=== PATIENT | female | born 1945 | race Caucasian/White ===

== ENCOUNTER 2022-06-04 11:48 | Emergency (ER) | payer MEDICARE, SELFPAY ==
--- NOTE | ~2022-06-04 | XR_ITS ---
EXAMINATION: XR ELBOW-RIGHT XR FOREARM-RIGHT XR HAND-RIGHT CLINICAL INFORMATION: Pain. COMPARISON: None TECHNIQUE: 3 views of the right elbow, 2 views of the right forearm and 3 views of the right wrist including the right hand were obtained. FINDINGS: Right elbow: The bony alignments are intact. Moderate diffuse osteopenia. Osteoarthrosis related changes are noted at the humeroulnar joint. The lateral radiograph is technically suboptimal due to suboptimal positioning, grossly no evidence of any effusion. Right forearm: Moderate diffuse osteopenia. Significant osteoarthrosis of the distal radioulnar joint with a new bone formation and sclerosis. Negative ulnar minus variant. Right wrist and right hand: Extensive TFCC calcification. Abnormal widening of the scapholunate joint space. Moderate diffuse osteopenia. Moderate osteoarthrosis of the first carpometacarpal joint. XR/XR forearm RT 2V IMPRESSION: 1. 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 2. 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 3. Abnormal widening of the scapholunate joint space consistent with scapholunate ligamentous tear, associated with extensive TFCC calcification and moderate osteoarthrosis of the first carpometacarpal joint and moderate diffuse osteopenia.
--- NOTE | ~2022-06-04 | XR_ITS ---
EXAMINATION: XR ELBOW-RIGHT XR FOREARM-RIGHT XR HAND-RIGHT CLINICAL INFORMATION: Pain. COMPARISON: None TECHNIQUE: 3 views of the right elbow, 2 views of the right forearm and 3 views of the right wrist including the right hand were obtained. FINDINGS: Right elbow: The bony alignments are intact. Moderate diffuse osteopenia. Osteoarthrosis related changes are noted at the humeroulnar joint. The lateral radiograph is technically suboptimal due to suboptimal positioning, grossly no evidence of any effusion. Right forearm: Moderate diffuse osteopenia. Significant osteoarthrosis of the distal radioulnar joint with a new bone formation and sclerosis. Negative ulnar minus variant. Right wrist and right hand: Extensive TFCC calcification. Abnormal widening of the scapholunate joint space. Moderate diffuse osteopenia. Moderate osteoarthrosis of the first carpometacarpal joint. XR/XR elbow RT 2V IMPRESSION: 1. 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 2. 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 3. Abnormal widening of the scapholunate joint space consistent with scapholunate ligamentous tear, associated with extensive TFCC calcification and moderate osteoarthrosis of the first carpometacarpal joint and moderate diffuse osteopenia.
--- NOTE | ~2022-06-04 | XR_ITS ---
EXAMINATION: XR ELBOW-RIGHT XR FOREARM-RIGHT XR HAND-RIGHT CLINICAL INFORMATION: Pain. COMPARISON: None TECHNIQUE: 3 views of the right elbow, 2 views of the right forearm and 3 views of the right wrist including the right hand were obtained. FINDINGS: Right elbow: The bony alignments are intact. Moderate diffuse osteopenia. Osteoarthrosis related changes are noted at the humeroulnar joint. The lateral radiograph is technically suboptimal due to suboptimal positioning, grossly no evidence of any effusion. Right forearm: Moderate diffuse osteopenia. Significant osteoarthrosis of the distal radioulnar joint with a new bone formation and sclerosis. Negative ulnar minus variant. Right wrist and right hand: Extensive TFCC calcification. Abnormal widening of the scapholunate joint space. Moderate diffuse osteopenia. Moderate osteoarthrosis of the first carpometacarpal joint. XR/XR hand wrist RT IMPRESSION: 1. 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 2. 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 3. Abnormal widening of the scapholunate joint space consistent with scapholunate ligamentous tear, associated with extensive TFCC calcification and moderate osteoarthrosis of the first carpometacarpal joint and moderate diffuse osteopenia.
[2022-06-04 12:01] VITALS: BP 100/49; PULSE 86; RESP 18; TEMP 36.9; O2SAT 96; BMI 54.0
--- NOTE | 2022-06-04 15:06 | ED_ITS ---
HPI - Extremity Problem General Chief complaint: Extremity Injury, Upper Stated complaint: pain in R hand Time Seen by Provider: 06/04/22 14:26 Source: patient Mode of arrival: wheelchair Limitations: no limitations History of Present Illness HPI Narrative: 76-year-old female has a history of high cholesterol, hypothyroidism, former blood clots on Coumadin, GERD, diabetes, brain tumor status post resection in [place] who presents with right hand/wrist pain. Patient is left-hand dominant. Patient denies any injury or trauma to the hand or wrist. She woke up with pain which is worsened with movement of the wrist. No associated weakness, numbness or tingling of the extremity. Related Data Previous Rx's Medication Instructions Recorded oxycodone 5 mg tablet 5 mg PO Q6H PRN pain #8 tabs 06/04/22 Allergies Allergy/AdvReac Type Severity Reaction Status Date / Time Iodinated Contrast Media Allergy Unknown VOMITING Unverified 06/11/20 14:34 [IV DYE, IODINE CONTAINING CONTRAST ] IVP dye Allergy Unknown vomiting Uncoded 10/30/18 00:00 Review of Systems Review of Systems: Yes all other systems are reviewed and are negative Constitutional: Constitutional: Reports no additional constitutional complaints, Denies body ache(s), Denies chills, Denies fever(s), Denies headache(s) and Denies weakness Eyes: Eyes: Reports no additional eye complaints and Denies change in vision ENT: Reports system reviewed and no additional complaints, except as documented, Denies dizziness, Denies headache(s), Denies nasal congestion, Denies nasal discharge and Denies neck pain Cardiovascular: Cardiovascular: Reports no additional cardiovascular complaints, Denies chest pain, Denies leg edema and Denies dyspnea Respiratory: Respiratory: Reports no additional respiratory complaints, Denies cough and Denies dyspnea Gastrointestinal: Gastrointestinal: Reports no additional gastrointestinal complaints, Denies abdominal pain, Denies diarrhea, Denies nausea and Denies vomiting Genitourinary: Genitourinary: Reports no additional female genitourinary complaints and Denies urinary incontinence Musculoskeletal: Musculoskeletal: Reports no additional musculoskeletal complaints, Denies back pain, Reports arthralgias, Reports joint swelling, Reports limited range of motion, Denies neck pain, Denies numbness and Denies tingling Integumentary/Breasts: Skin/Breast: Reports system reviewed and no additional complaints, except as docu and Denies rash Neurologic: Reports system reviewed and no additional complaints, except as documented, Denies Abnormal speech present, Denies dizziness, Denies headache(s), Denies numbness, Denies tingling and Denies weakness PMFSH Past Medical History Attestation statement: The following information was validated with the patient. Source: old records reviewed and nursing notes reviewed Social History Social History Advance Directives: No Advance Directives Information Provided: No Physical Exam Vital Signs: Vital Signs: Last Vital Signs Temp 98.4 F 06/04/22 12:01 Pulse 86 06/04/22 12:01 Resp 18 06/04/22 12:01 BP 100/49 L 06/04/22 12:01 Pulse Ox 96 06/04/22 12:01 O2 Del Method 06/04/22 12:01 BMI result Body Mass Index 54.0 Const: General: cooperative, healthy appearing, comfortable and no acute distress Orientation/consciousness: patient oriented x3 Limitations: no limitations HEENT: Head: Yes normal to inspection Ears: hearing grossly normal bilaterally General nose exam: Normal external nose present Face and sinus: Yes normal facial exam Mouth: Normal oral and palatal mucosa present Throat: Yes posterior oropharynx normal Eyes: General: appearance normal, both eyes and all related structures Pupils: Equal, round and reactive pupils present Neck: Neck: Yes normal visual inspection Chest: Chest palpation & inspection: normal inspection of the chest Resp: Effort & Inspection: normal respiratory effort Auscultation: clear to auscultation bilaterally Cardio: Rate: regular rate Rhythm: regular rhythm Peripheral pulses: Peripheral pulses 2+ throughout GI: Inspection: Yes normal to inspection Palpation (GI): Soft to palpation and nontender Auscultation: normal bowel sounds Back/Spine/Pelvis: Thoracic/Lumbar Spine: thoracic and lumbar spine normal to inspection Skin: General skin exam: no rashes or lesions noted Neuro: General: patient oriented x3, no focal motor deficits and normal sensation to monofilament Cranial nerves: Yes Equal, round and reactive pupils present Cognition (Neuro): normal cognition Speech: No Abnormal speech present Gait exam (Neuro): Normal gait present Motor exam (neuro): 5/5 motor strength present throughout Extrem: Other: There is tenderness to the distal radial wrist with some slight swelling. There is limited range of motion of the wrist due to pain. No warmth or redness. Palpable radial and ulnar pulses. Neurovascular intact distally. General: Yes normal to inspection Course Course Course Narrative: X-rays IMPRESSION: ? 1. 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 2. 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 3. Abnormal widening of the scapholunate joint space consistent with scapholunate ligamentous tear, associated with extensive TFCC calcification and moderate osteoarthrosis of the first carpometacarpal joint and moderate diffuse osteopenia. -patient denies any injury or trauma. There is tenderness over the distal radial wrist. Will place patient and wrist splint. Recommend APAP and low-dose oxycodone for home. Patient moved here recently from [place] and does not have a primary care doctor. She is trying to get [employer]. She is working on establishing a primary care doctor. I explained the patient when she has insurance or primary care she can follow-up with orthopedics. Reviewed worrisome signs and symptoms of when to return to the emergency room. Comfortable discharge home. MDM - Extremity (Nontraumatic) MDM Narrative Medical decision making narrative: 76-year-old female who is left-hand dominant here with atraumatic right wrist pain with waking. Will obtain x-rays. Medical Records Attestation: I reviewed the patient's medical records. Lab Data Attestation: I reviewed the patient's lab results. Imaging Data Hand/wrist xray, FA, elbow: Attestation: I personally reviewed and interpreted this imaging study as follows: Radiologist's impression: IMPRESSION: ? 1. 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 2. 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 3. Abnormal widening of the scapholunate joint space consistent with scapholunate ligamentous tear, associated with extensive TFCC calcification and moderate osteoarthrosis of the first carpometacarpal joint and moderate diffuse osteopenia. Procedures Procedure Narrative Procedure Narrative: Wrist splint Discharge Plan Discharge Clinical Impression: Right scapholunate ligament tear, Osteoarthritis of right wrist Patient Disposition: Home, Self-Care Instructions: Osteoarthritis (ED), Wrist Sprain (ED) Additional Instructions: Your x-ray of the wrist shows arthritis in the hand and wrist which is quite significant. There is also a tear of the ligament in the wrist. We are placing you in a splint for comfort. You may remove this as tolerated Apply ice to the area, limit use of the wrist for the next few days Continue with Tylenol. Take the pain medicine as tolerated You need to establish a primary care as you will likely need referral to see a hand specialist. I have attached the name and number for our hand specialist but again you will likely need a referral Prescriptions: New oxycodone 5 mg tablet 5 mg PO Q6H PRN (Reason: pain) Qty: 8 0RF Rx Instructions: Partial Fill upon patient request. Referrals: Stephanie Powers MD [Physician] - 2 weeks Interventions: ED Discharge Assessment Last Done: 06/04/22 15:47 Discharge Date/Time: 06/04/22 15:49
[2022-06-04] MEDS: oxyCODONE HCl Immed Release 5 MG TABLET PO (15:30)
== END 2022-06-04 15:49 | disposition home or self-care (01) ==
PROVIDERS: Emergency Provider Emergency Medicine
DX: S63.8X1A Sprain of other part of right wrist and hand, initial encounter (principal); X58.XXXA Exposure to other specified factors, initial encounter; M19.031 Primary osteoarthritis, right wrist; M79.641 Pain in right hand; Y93.9 Activity, unspecified; Y92.9 Unspecified place or not applicable; Y99.9 Unspecified external cause status
CPT/HCPCS: 73070; 73090; 73110; 73130; 99283; 99284

== ENCOUNTER 2022-06-08 16:02 | Inpatient (IN) | payer MEDICARE, SELFPAY ==
--- NOTE | ~2022-06-08 | CT_ITS ---
EXAMINATION: CT HEAD WITHOUT CONTRAST CLINICAL INFORMATION: Altered mental status COMPARISON: 04/20/2018 TECHNIQUE: Contiguous axial imaging was performed from the skull base to vertex without intravenous administration of contrast. This CT examination was performed using dose optimization techniques as appropriate, variously including the following: *Automated exposure control *Adjustment of mA and/or kV according to patient size (this includes techniques or standardized protocols for targeted exams where dose is matched to indication/reason for exam; i.e. extremities or head) *Use of iterative reconstruction technique DLP: 848 mGy-cm FINDINGS: There is no midline shift. There is no mass effect. There is no hemorrhage. The basilar cisterns appear patent. The posterior fossa is grossly within normal limits. There is no extra-axial collection. There has been a craniotomy on the left There is encephalopathy adjacent to the craniotomy of the left. There is also some decreased attenuation in the white matter adjacent to the encephalopathic brain. This is not causing any midline shift or definitive mass effect. There is a possible new area of decreased attenuation adjacent to the anterior body of the right lateral ventricle. Image 36 which could represent an area of white matter ischemic change. A small underlying lesion cannot be excluded here. There is no acute fracture on the bone windows. CT/CT head/brain wo IV con IMPRESSION: There is no acute finding here. There has been a left posterior craniotomy from previous exam there is encephalomalacia which is now present and there is some as described decreased attenuation in the adjacent white matter in the region. Although this could represent the patient's postoperative appearance tumor cannot be excluded. As described there is also felt to be new area of decreased attenuation which is just superior to the caudate and adjacent to the caudate on the right adjacent also at the level the anterior aspect of the body of the right lateral ventricle. This could represent white matter ischemic change however underlying lesion again cannot be excluded. Given these findings Recommendation is pre and postcontrast MRI for further evaluation.
--- NOTE | ~2022-06-08 | XR_ITS ---
EXAMINATION: XR CHEST CLINICAL INFORMATION: Altered mental status. COMPARISON: 09/24/2017 chest radiograph. TECHNIQUE: Frontal view of the chest was obtained. FINDINGS: No significant abnormality is noted involving the heart, lungs, mediastinum, bony thorax or soft tissues. XR/XR chest 1V IMPRESSION: No acute cardiopulmonary process.
--- NOTE | ~2022-06-08 | CT_ITS ---
EXAMINATION: CT ANGIOGRAM HEAD CT ANGIOGRAM NECK CLINICAL INFORMATION: CT head from 06/08/2022 and 04/20/2018. COMPARISON: CT head from 06/08/2022 and 04/20/2018. CTA head and neck from 09/24/2017. TECHNIQUE: Patient was premedicated prior to evaluation secondary to reported contrast allergy. Initial noncontrast nurse advisor imaging of the head and neck was performed. Comparison is made with noncontrast head CT from earlier today. Test bolus sequences followed by intravenous administration 70 mL of Omnipaque 350. Helical imaging was performed in the axial plane from the aortic arch to the skull vertex. Delayed postcontrast imaging of the head was also performed. The data was processed at the cytogenetics technologist's workstation for generation of MIP sequences. Angled MIPs and volume rendered reformatted images were also generated at an offline 3D workstation. Stenoses are assessed in accordance with NASCET criteria unless otherwise indicated. This CT examination was performed using dose optimization techniques as appropriate, variously including the following: *Automated exposure control. *Adjustment of mA and/or kV according to patient size (this includes techniques or standardized protocols for targeted exams where dose is matched to indication/reason for exam; i.e. extremities or head). *Use of iterative reconstruction technique. DLP: 1649 mGy-cm FINDINGS: CT Head: Changes of left parietal craniotomy for resection of an underlying extra-axial lesion demonstrated on prior exams. Soft tissue mass fills the posterior aspect of the superior sagittal sinus in this location, measuring up to 2.3 x 0.9 x 4 cm. There is a region of chronic encephalomalacia of the high left parietal lobe subjacent to the craniotomy site. There is no evidence of acute intracranial hemorrhage or edematous territorial infarction. Scattered hypoattenuation in the periventricular and deep white matter are consistent with moderate microangiopathy. No additional loss of rodriguez-white matter differentiation. Proportional prominence of the ventricles and sulcal spaces. No evidence for obstructive hydrocephalus. No abnormal mass effect or midline shift. No extra-axial fluid collections. No pathologic intra-axial enhancement or regional oligemia. No acute soft tissue or osseous abnormalities. Mild mucosal thickening of the paranasal sinuses. The mastoid air cells and middle ear cavities are clear. Degenerative arthropathy of the right temporomandibular joint. Moderate degenerative arthropathy of the left temporomandibular joint. CT Neck: The thyroid gland and remaining cervical soft tissues are within normal limits. Reversal the normal cervical lordosis centered on C5-C6. Advanced degenerative disc disease at C5-C6 and C6-C7. Moderate degenerative disc disease at all additional cervical levels. Facet and uncovertebral joint arthropathy leads to osseous encroachment on the neural foramina at C3-C4, C5-C6, and C6-C7. CT Upper Chest: The visualized lung apices and upper mediastinum are within normal limits. Neck CTA: Aortic Arch: Normal contour and caliber with moderate calcific atherosclerotic disease. Classic 3 vessel branching pattern of the aortic arch. Great Vessel Origins: No significant stenosis of the branch origins. Right Common Carotid Artery: No focal stenosis or occlusion. Retropharyngeal course. Cervical Right Internal Carotid Artery: Calcific atherosclerotic disease of the carotid bulb and proximal internal carotid artery causing less than 50% stenosis. Left Common Carotid Artery: No focal stenosis or occlusion. Retropharyngeal course. Cervical Left Internal Carotid Artery: Calcific atherosclerotic disease of the carotid bulb and proximal internal carotid artery causing less than 50% stenosis. Cervical Right Vertebral Artery: Co-dominant. No focal stenosis or occlusion. Cervical Left Vertebral Artery: Co-dominant. No focal stenosis or occlusion. Brain CTA: Intracranial Internal Carotid Arteries: Calcific atherosclerotic disease of the intracranial internal carotid arteries without occlusion or flow-limiting stenosis. Right Anterior Cerebral Artery: Normal A1 segment. Normal opacification of the distal REYNOLD segments. Left Anterior Cerebral Artery: Normal A1 segment. Normal opacification of the distal REYNOLD segments. Anterior Communicating Artery: Normal. Right Middle Cerebral Artery: Normal M1 segment of the MCA without focal stenosis or occlusion. Normal arborization of the distal segments. Left Middle Cerebral Artery: Normal M1 segment of the MCA without focal stenosis or occlusion. Normal arborization of the distal segments. Right Vertebral Artery: Normal V4 segment. Normal opacification of the proximal segments of the posterior inferior cerebellar artery. Left Vertebral Artery: Normal V4 segment. Normal opacification of the proximal segments of the posterior inferior cerebellar artery. Basilar Artery: Normal without focal stenosis or occlusion. Normal appearance of the proximal superior cerebellar arteries. Right Posterior Cerebral Artery: Normal P1 segment. Normal opacification of the distal BRICK BURNER HEAD segments. Left Posterior Cerebral Artery: Normal P1 segment. Normal opacification of the distal BR[place] BUR[place] HEAD segments. As noted above, there is a soft tissue mass filling the posterior aspect of the superior sagittal sinus. Normal opacification of the superior sagittal sinus superior and inferior to the margins of this lesion. Normal opacification of the straight, transverse, and sigmoid sinuses. CT/CT angio head neck IMPRESSION: 1. No evidence of acute intracranial hemorrhage or edematous territorial infarction. 2. Changes of left parietal craniotomy for resection of a previously demonstrated subjacent extra-axial mass (presumably an underlying meningioma). Compared to most recent available prior exam in 2018, the bulk of the mass along the left posterior vertex has been resected with adjacent encephalomalacia of the left parietal lobe. However, there appears to be increased tumor bulk filling the posterior aspect of the superior sagittal sinus on today's exam. 3. CTA of the head and neck without proximal occlusion or flow-limiting stenosis. 4. Moderate multilevel degenerative spondyloarthropathy of the cervical spine.
--- NOTE | 2022-06-08 16:14 | ECG_ITS ---
Test Reason : HALLUCINATION Blood Pressure : / mmHG Vent. Rate : 073 BPM Atrial Rate : 073 BPM P-R Int : 174 ms QRS Dur : 170 ms QT Int : 470 ms P-R-T Axes : 033 -62 028 degrees QTc Int : 517 ms Normal sinus rhythm Right bundle branch block Left anterior fascicular block Bifascicular block Minimal voltage criteria for LVH, may be normal variant ( R in aVL ) Abnormal ECG When compared with ECG of 20-APR-2018 08:50, No significant change was found Referred By: Kahlil Oden Electronically Signed By:KIMBERLEY IBARRA
--- NOTE | 2022-06-08 16:15 | ED_ITS ---
HPI - Altered Mental Status General Chief Complaint: General Medical Stated Complaint: VISUAL AND AUDITORY HALLUCINATIONS Time Seen by Provider: 06/08/22 16:13 Source: patient Mode of arrival: ambulatory Limitations: no limitations History of Present Illness HPI narrative: 76-year-old female has a history of high cholesterol, hypothyroidism, former blood clots on Coumadin, GERD, diabetes, brain tumor status post resection in [place] who presents with auditory and visual hallucinations. The patient had a meningioma resected from her left parietal lobe in February 2022. She tells me that following the surgery she was started on Keppra and a steroid and she believes that the combination of the 2 caused her to have hallucinations. Her docotor stopped these medications and her hallucinations stopped at that time. The patient tells me that since she was seen here for wrist pain on 06/04/22 and started on oxycodone she began having hallucinations again. She tells me that she stopped taking to oxycodone but still has had hallucinations where she hears music and she sees and has conversations with people in the room that are not truly there. She also recalls having a similar episode when she had a UTI in the past and tells me that she has some dysuria currently. She denies any chest pain, shortness of breath, abdominal pain, headaches, dizziness, or vision changes. MD complaint: altered mental status Related Data Previous Rx's Medication Instructions Recorded oxycodone 5 mg tablet 5 mg PO Q6H PRN pain #8 tabs 06/04/22 Allergies Allergy/AdvReac Type Severity Reaction Status Date / Time Iodinated Contrast Media Allergy Unknown VOMITING Unverified 06/11/20 14:34 [IV DYE, IODINE CONTAINING CONTRAST ] IVP dye Allergy Unknown vomiting Uncoded 10/30/18 00:00 Review of Systems Review of Systems: Constitutional : No Weight loss, No Fever, No Chills, No Fatigue, No Malaise ENT/Mouth : No sore throat, No Rhinorrhea Eyes: No Eye Pain, No Swelling, No Redness Cardiovascular : No Chest Pain, No SOB, No Dyspnea on Exertion, No Orthopnea, No Edema, No Palpitations Respiratory : No Cough, No Sputum, No Wheezing Gastrointestinal : No Nausea, No Vomiting, No Diarrhea, No Constipation, No abdominal Pain, No Hematochezia, No Melena Genitourinary : + Dysuria, No Urinary Frequency, No Hematuria, Musculoskeletal : No joint pain, No Myalgias, No Joint Swelling Skin : No Skin Lesions, No rash Neuro : No Weakness, No Numbness, No Dizziness, No Headache Psych : +auditory and visual hallucinations. No Anxiety/Panic, No Depression All other systems reviewed and are negative [facility] Past Medical History Attestation statement: The following information was validated with the patient. Source: old records reviewed and nursing notes reviewed Social History Social History Alcohol intake: never Patient Tobacco Use Status: Never used Tobacco Advance Directives: No Advance Directives Information Provided: No Physical Exam ED Vital Signs: Vital Signs - 24 hr 06/08/22 16:38 06/08/22 21:24 Temperature 98 F Pulse Rate 80 72 Respiratory Rate 18 Blood Pressure 133/74 122/67 Pulse Oximetry 96 93 Oxygen Delivery Method Room Air Room Air BMI result Body Mass Index 56.2 vss Appearance: Alert.? Oriented X3.? Able to answer questions. No acute distress.? Slow to respond to questions. Forgetful. Head: Normocephalic, atraumatic, no step-offs or deformities Eyes: Pupils equal, round and reactive to light.? Neck: Normal inspection.? Neck supple.? No meningeal signs on exam. CVS: Normal heart rate and rhythm.? Pulses normal.? Respiratory: No respiratory distress.? Breath sounds normal.? Abdomen: Soft and nontender.? Skin: Skin warm and dry.? Normal skin color.? Normal skin turgor.? Extremities: No lower extremity edema.? No calf ttp. 5/5 strength to bilateral upper and lower extremities Back: No midline tenderness, no C-spine tenderness, full range of motion, no CVA tenderness bilaterally Neuro: Oriented X 3.? No motor deficit.? No sensory deficit. CN 2-12 intact. Full range of motion of all extremities. Normal sensation. No pronator drift. Normal finger to nose. Course Reevaluation(s) Reevaluation #1: CBC within normal limits. Chemistry with no acute electrolyte abnormalities requiring intervention. UA without infection. D-dimer negative unlikely PE. Urine toxicology negative. Ethanol negative. COVID negative. Patient's chest x-ray with no acute findings. Head CT with a left posterior craniotomy from previous exam there is encephalomalacia now present, could be postoperative progress, however cannot exclude tumor. It is also showing new areas of decreased attenuation superior to the caudate and adjacent to the caudate on the right adjacent also the level of the anterior aspect of the body of the low right lateral ventricle. Which could represent white matter ischemic changes. However again underlying lesion cannot be excluded. Will obtain a CT of the head and neck to rule out occlusion. Patient's neuro exam remains nonfocal. Time: 19:29 Reevaluation #2: Patient was premedicated with Solu-Medrol, Benadryl and Zofran prior to CTA, patient tolerated CTA well. Concerns for possible tumor bulk filling the posterior aspect of the superior sagittal sinus on today's exam. Patient tells me daughter is at bedside. noone at the bedside Patient remains slightly confused, seeing things that are not there. Workup is unremarkable, no source of infection identified. At this time discuss this case with my attending who recommends doing a lumbar puncture for further evaluation for altered mental status concerns for possible meningitis or encephalitis. Time: 22:59 Reevaluation #3: LP preformed by Dr. Weston, no complications, patient tolerated procedure well. Spoke to daughter who verbalizes ok for LP as patient is altered. I was able to speak to the daughter who tells me that symptoms have been worsening over the past 3-5 days, patient has been notably confused, and having hallucinations, seeing people in her backyard, mowing the lawn. Report that this is not her baseline, last time she had something like this she had a urinary tract infection however today her urine is clean. Patient will be admitted to the hospitalist team for further intervention and treatment Time: 23:45 MDM - Altered Mental Status MDM Narrative Medical decision making narrative: 1600 76-year-old female presents with altered mental status from home To note patient was seen here recently on 06/04/2022 where she was evaluated for right wrist pain, noted to have osteoarthritis. Patient was discharged home with oxycodone 5 mg p.o. q.6 hours as needed for pain and was given 8 tablets. Physical examination patient a&o x3 however intermittently is hallucinating, seeing people in the room who were not there. Plan at this time is basic labs, urine, chest x-ray, CT of the head. Will rule out electrolyte abnormalities, infection, UTI, intracranial pathology, Requested records from [facility] where patient had her brain surgery, Medical Records Attestation: I reviewed the patient's medical records. Lab Data Attestation: I reviewed the patient's lab results. Result diagrams: 06/08/22 17:54 06/08/22 17:54 Labs: Lab Results 06/08/22 06/08/22 06/08/22 Range/Units 17:54 17:54 17:54 WBC 10.2 (4.8-10.8) X10*3/uL RBC 4.43 (4.20-5.50) X10*6/uL Hgb 12.5 (12.0-16.0) g/dl Hct 40.0 (37.0-47.0) % MCV 90.3 (80.0-98.0) fL MCH 28.2 (27.0-33.0) pg MCHC 31.3 (31.0-35.0) g/dl RDW 15.1 (11.0-16.0) % Plt Count 196 (160-400) X10*3/uL MPV 11.7 (9.4-12.3) fL Immature Gran % (Auto) 0.8 H (0.0-0.4) % Neut % (Auto) 80.9 H (45-73) % Lymph % (Auto) 9.9 L (20-40) % Gates % (Auto) 6.6 (2-11) % Eos % (Auto) 1.3 (0-4) % Baso % (Auto) 0.5 (0-2) % Lymph # (Auto) 1.0 L (1.2-4.9) X10*3/uL Gates # (Auto) 0.7 (0.1-1.2) X10*3/uL Eos # (Auto) 0.1 (0.0-0.4) X10*3/uL Baso # (Auto) 0.1 (0.0-0.2) X10*3/uL Abs Immat Gran (auto) 0.08 H (0.00-0.03) X10*3/uL Absolute Neuts (auto) 8.2 (2.0-8.3) x10*3/uL Absolute Nucleated RBC 0.000 (0.0-0.012) X10*3/uL Nucleated RBC % (auto) 0.0 (0.0-0.2) /100WBC D-Dimer High Sensitivty NG/ML Sodium 143 (135-145) mmol/L Potassium 4.1 (3.3-5.1) mmol/L Chloride 104 (96-108) mmol/L Carbon Dioxide 25 (22-29) mmol/L Anion Gap 18 (12-20) BUN 20 H (9-16) mg/dL Creatinine 1.33 (0.5-1.4) mg/dL Estim Creat Clear Calc 59.8 Estimated GFR 39 Random Glucose 107 (60-115) mg/dL Calcium 9.1 (8.4-10.2) mg/dL Magnesium 1.9 (1.6-2.6) mg/dL Total Bilirubin 0.4 (0.0-1.0) mg/dL AST 11 (5-31) U/L ALT 6 (0-31) U/L Alkaline Phosphatase 90 (39-117) U/L Ammonia (13-55) umol/L Troponin I High Sens 14.7 (<3.5-17.0) ng/L Total Protein 5.5 L (6.5-8.0) g/dL Albumin 3.4 L (3.5-5.0) g/dL Urine Color Urine Appearance Urine pH (5.0-9.0) Ur Specific [place] (1.005-1.025) Urine Protein (Neg-Trace) mg/dL Urine Glucose (UA) (Negative) mg/dL Urine Ketones (Negative) mg/dL Urine Blood (Negative) Urine Nitrite (Negative) Ur Leukocyte Esterase (Negative) Urine RBC (0-2) /HPF Urine WBC (0-5) /HPF Ur Squamous Epith Cells (0-2) /HPF Urine Bacteria (None Seen) Hyaline Casts (0-2) /LPF Urine Opiates Screen (Not Detect) Urine Fentanyl Screen (Not Detect) Ur Barbiturates Screen (Not Detect) Ur Phencyclidine Scrn (Not Detect) Ur Amphetamines Screen (Not Detect) U Benzodiazepines Scrn (Not Detect) Urine Cocaine Screen (Not Detect) U Marijuana (THC) Screen (Not Detect) Ethyl Alcohol < 10 mg/dL COVID-19 (MICHAEL) (Negative) COVID-19 Clin Com 09/06/08/22 06/08/22 Range/Units 17:54 17:54 17:54 WBC (4.8-10.8) X10*3/uL RBC (4.20-5.50) X10*6/uL Hgb (12.0-16.0) g/dl Hct (37.0-47.0) % MCV (80.0-98.0) fL MCH (27.0-33.0) pg MCHC (31.0-35.0) g/dl RDW (11.0-16.0) % Plt Count (160-400) X10*3/uL MPV (9.4-12.3) fL Immature Gran % (Auto) (0.0-0.4) % Neut % (Auto) (45-73) % Lymph % (Auto) (20-40) % Gates % (Auto) (2-11) % Eos % (Auto) (0-4) % Baso % (Auto) (0-2) % Lymph # (Auto) (1.2-4.9) X10*3/uL [place] # (Auto) (0.1-1.2) X10*3/uL Eos # (Auto) (0.0-0.4) X10*3/uL Baso # (Auto) (0.0-0.2) X10*3/uL Abs Immat Gran (auto) (0.00-0.03) X10*3/uL Absolute Neuts (auto) (2.0-8.3) x10*3/uL Absolute Nucleated RBC (0.0-0.012) X10*3/uL Nucleated RBC % (auto) (0.0-0.2) /100WBC D-Dimer High Sensitivty 163 NG/ML Sodium (135-145) mmol/L Potassium (3.3-5.1) mmol/L Chloride (96-108) mmol/L Carbon Dioxide (22-29) mmol/L Anion Gap (12-20) BUN (9-16) mg/dL Creatinine (0.5-1.4) mg/dL Estim Creat Clear Calc Estimated GFR Random Glucose (60-115) mg/dL Calcium (8.4-10.2) mg/dL Magnesium (1.6-2.6) mg/dL Total Bilirubin (0.0-1.0) mg/dL AST (5-31) U/L ALT (0-31) U/L Alkaline Phosphatase (39-117) U/L Ammonia 17 (13-55) umol/L Troponin I High Sens (<3.5-17.0) ng/L Total Protein (6.5-8.0) g/dL Albumin (3.5-5.0) g/dL Urine Color Urine Appearance Urine pH (5.0-9.0) Ur Specific [place] (1.005-1.025) Urine Protein (Neg-Trace) mg/dL Urine Glucose (UA) (Negative) mg/dL Urine Ketones (Negative) mg/dL Urine Blood (Negative) Urine Nitrite (Negative) Ur Leukocyte Esterase (Negative) Urine RBC (0-2) /HPF Urine WBC (0-5) /HPF Ur Squamous Epith Cells (0-2) /HPF Urine Bacteria (None Seen) Hyaline Casts (0-2) /LPF Urine Opiates Screen (Not Detect) Urine Fentanyl Screen (Not Detect) Ur Barbiturates Screen (Not Detect) Ur Phencyclidine Scrn (Not Detect) Ur Amphetamines Screen (Not Detect) U Benzodiazepines Scrn (Not Detect) Urine Cocaine Screen (Not Detect) U Marijuana (THC) Screen (Not Detect) Ethyl Alcohol mg/dL COVID-19 (MICHAEL) Negative (Negative) COVID-19 Clin Com See Note 06/08/22 06/08/22 Range/Units 18:31 18:31 WBC (4.8-10.8) X10*3/uL RBC (4.20-5.50) X10*6/uL Hgb (12.0-16.0) g/dl Hct (37.0-47.0) % MCV (80.0-98.0) fL MCH (27.0-33.0) pg MCHC (31.0-35.0) g/dl RDW (11.0-16.0) % Plt Count (160-400) X10*3/uL MPV (9.4-12.3) fL Immature Gran % (Auto) (0.0-0.4) % Neut % (Auto) (45-73) % Lymph % (Auto) (20-40) % Gates % (Auto) (2-11) % Eos % (Auto) (0-4) % Baso % (Auto) (0-2) % Lymph # (Auto) (1.2-4.9) X10*3/uL [place] # (Auto) (0.1-1.2) X10*3/uL Eos # (Auto) (0.0-0.4) X10*3/uL Baso # (Auto) (0.0-0.2) X10*3/uL Abs Immat Gran (auto) (0.00-0.03) X10*3/uL Absolute Neuts (auto) (2.0-8.3) x10*3/uL Absolute Nucleated RBC (0.0-0.012) X10*3/uL Nucleated RBC % (auto) (0.0-0.2) /100WBC D-Dimer High Sensitivty NG/ML Sodium (135-145) mmol/L Potassium (3.3-5.1) mmol/L Chloride (96-108) mmol/L Carbon Dioxide (22-29) mmol/L Anion Gap (12-20) BUN (9-16) mg/dL Creatinine (0.5-1.4) mg/dL Estim Creat Clear Calc Estimated GFR Random Glucose (60-115) mg/dL Calcium (8.4-10.2) mg/dL Magnesium (1.6-2.6) mg/dL Total Bilirubin (0.0-1.0) mg/dL AST (5-31) U/L ALT (0-31) U/L Alkaline Phosphatase (39-117) U/L Ammonia (13-55) umol/L Troponin I High Sens (<3.5-17.0) ng/L Total Protein (6.5-8.0) g/dL Albumin (3.5-5.0) g/dL Urine Color Yellow Urine Appearance Clear Urine pH 5.5 (5.0-9.0) Ur Specific [place] 1.015 (1.005-1.025) Urine Protein Trace (Neg-Trace) mg/dL Urine Glucose (UA) Negative (Negative) mg/dL Urine Ketones Negative (Negative) mg/dL Urine Blood Moderate (2+) H (Negative) Urine Nitrite Negative (Negative) Ur Leukocyte Esterase Trace H (Negative) Urine RBC >20 H (0-2) /HPF Urine WBC 0-5 (0-5) /HPF Ur Squamous Epith Cells 6-10 (0-2) /HPF Urine Bacteria None Seen (None Seen) Hyaline Casts 6-10 (0-2) /LPF Urine Opiates Screen Not Detected (Not Detect) Urine Fentanyl Screen Not Detected (Not Detect) Ur Barbiturates Screen Not Detected (Not Detect) Ur Phencyclidine Scrn Not Detected (Not Detect) Ur Amphetamines Screen Not Detected (Not Detect) U Benzodiazepines Scrn Not Detected (Not Detect) Urine Cocaine Screen Not Detected (Not Detect) U Marijuana (THC) Screen Not Detected (Not Detect) Ethyl Alcohol mg/dL COVID-19 (MICHAEL) (Negative) COVID-19 Clin Com Procedures Lumbar Puncture Time Out Performed: Yes Patient Position: upright Skin Prep: Povidone-Iodine 1% Local Anesthetic: lidocaine 1% Amount of anesthesia used (mL): 4 Spinal Needle Gauge: 22G Interspace Used: L4-L5 Fluid Initially Obtained: clear Complications: none Critical Care Time Critical Care Time Critical Care Time: Yes Total Critical Care Time: 60 Attestation: I attest to this time spent taking care of the patient, obtaining history, physical, reviewing labs, imaging, speaking to my attending, speaking to specia list. Discharge Plan Discharge Clinical Impression: Acute alteration in mental status, Hallucinations, Weakness, Encephalopathy Patient Disposition: Admitted As Inpatient
[2022-06-08 16:20] VITALS: BP 110/67; PULSE 87; O2SAT 95
[2022-06-08 16:38] VITALS: BP 133/74; PULSE 80; RESP 18; TEMP 36.6; O2SAT 96; BMI 56.2
[2022-06-08 18:09] LABS: MANUAL DIFF FLAG NO
[2022-06-08 18:12] LABS: Basophils Absolute Auto 0.1 X10*3/uL (0.0-0.2); Basophils Percent Auto 0.5 % (0-2); Eosinophils Absolute Auto 0.1 X10*3/uL (0.0-0.4); Eosinophils Percent Auto 1.3 % (0-4); Hemoglobin 12.5 g/dl (12.0-16.0); Imm Gran Abs Auto 0.08 X10*3/uL (0.00-0.03); Imm Gran Pct Auto 0.8 % (0.0-0.4); Lymphocytes Percent Auto 9.9 % (20-40); Mean Corpuscular HGB Conc 31.3 g/dl (31.0-35.0); Mean Corpuscular Hemoglobin 28.2 pg (27.0-33.0); Mean Corpuscular Volume 90.3 fL (80.0-98.0); Mean Platelet Volume 11.7 fL (9.4-12.3); Monocytes Absolute Auto 0.7 X10*3/uL (0.1-1.2); Monocytes Percent Auto 6.6 % (2-11); Neutrophils Absolute Auto 8.2 x10*3/uL (2.0-8.3); Neutrophils Percent Auto 80.9 % (45-73); Platelet Count 196 X10*3/uL (160-400); Red Blood Count 4.43 X10*6/uL (4.20-5.50); Red Cell Distribution Width 15.1 % (11.0-16.0); White Blood Count 10.2 X10*3/uL (4.8-10.8)
[2022-06-08 18:23] LABS: D Dimer High Sensitivity 163 NG/ML
[2022-06-08 18:26] LABS: COVID-19 Test Negative (Negative); IDNOW Serial# 55D5AD1C
[2022-06-08 18:31] LABS: Ammonia 17 umol/L (13-55)
[2022-06-08 18:34] LABS: Troponin-I High Sensitivity 14.7 ng/L (<3.5-17.0)
[2022-06-08 18:38] LABS: Alanine Aminotransferase 6 U/L (0-31); Albumin Level 3.4 g/dL (3.5-5.0); Alkaline Phosphatase 90 U/L (39-117); Anion Gap 18 (12-20); Aspartate Amino Transferase 11 U/L (5-31); Bilirubin Total 0.4 mg/dL (0.0-1.0); Blood Urea Nitrogen 20 mg/dL (9-16); Calcium 9.1 mg/dL (8.4-10.2); Carbon Dioxide 25 mmol/L (22-29); Chloride 104 mmol/L (96-108); Creatinine Clr Calc Pharmacy 59.8; Estimated Glomerular Filt Rate 39; Ethanol < 10 mg/dL; Glucose Random 107 mg/dL (60-115); Magnesium 1.9 mg/dL (1.6-2.6); Potassium 4.1 mmol/L (3.3-5.1); Sodium 143 mmol/L (135-145); Total Protein 5.5 g/dL (6.5-8.0)
[2022-06-08 18:47] LABS: Appearance Urine Clear; Color Urine Yellow; Glucose Urine UA Negative (Negative); Leukocyte Esterase Urine Trace (Negative); Nitrite Urine Negative (Negative); PH 5.5 (5.0-9.0); Specific Gravity - Urine 1.015 (1.005-1.025); UMIC TRIGGER UACC YES; Urine Blood Moderate (2+) (Negative); Urine Ketones Negative (Negative); Urine Protein Trace mg/dL (Neg-Trace)
[2022-06-08 18:56] LABS: Amphetamine Screen Urine Not Detected (Not Detect); Barbiturates, Urine Not Detected (Not Detect); Benzodiazepines Screen Urine Not Detected (Not Detect); Cannabinoid Screen Urine Not Detected (Not Detect); Cocaine Screen Urine Not Detected (Not Detect); Fentanyl, urine Not Detected (Not Detect); Opiate Screen Urine Not Detected (Not Detect); Phencyclidine Screen Urine Not Detected (Not Detect)
[2022-06-08 19:17] LABS: Bacteria Urine None Seen (None Seen); RBC Urine >20 /HPF (0-2); WBC Urine 0-5 /HPF (0-5)
[2022-06-08] MEDS: ondansetron HCL 4 MG/2 ML VIAL IVPUSH (20:21)
[2022-06-08] MEDS: diphenhydrAMINE HCL 50 MG/ML VIAL IVPUSH (20:21)
[2022-06-08] MEDS: methylPREDNISolone Sod Succ 125 MG/2 ML VIAL IVPUSH (20:21)
[2022-06-08] MEDS: iohexoL 350 MG/ML 100 ML INFUS..BTL IV (20:59)
[2022-06-08 21:24] VITALS: BP 122/67; PULSE 72; O2SAT 93
--- NOTE | 2022-06-08 23:57 | PM.IMHP ---
History of Present Illness Date of Service: 06/08/22 Chief Complaint: AMS 76-year-old female with a past medical history of hypertension, hyperlipidemia, diabetes, history of DVT on Coumadin, GERD, hypothyroidism, history of meningioma status post resection in February 2022; presented to the hospital today with a chief complaint of confusion. Reportedly patient having episodes of confusion, hallucinations-both visual and auditory. And has periods of normal mental status. Denies any seizure-like activity. At the time of entry patient is alert and awake, oriented x3; denies any chest pain or palpitations. Denies any headaches numbness tingling or focal weakness. Denies any blurry visions. Reports she has intermittent headaches but currently denies any. Denies any falls or trauma. Review of all other systems is negative except mentioned above ER course: Per ER team patient has waxing and waning mental status; currently oriented x3; exam nonfocal; no obvious signs of infection; urinalysis negative; chest x-ray showed no evidence of pneumonia; CT head showed mild tumor burden; patient also had LP done in the ER. Admitted to the hospital for further management PMFSH Pertinent family history: Reviewed Social History Alcohol intake: never Patient Tobacco Use Status: Never used Tobacco Advance Directives: No Advance Directives Information Provided: No Meds Allergies Allergy/AdvReac Type Severity Reaction Status Date / Time Iodinated Contrast Media Allergy Unknown VOMITING Unverified 06/11/20 14:34 [IV DYE, IODINE CONTAINING CONTRAST ] IVP dye Allergy Unknown vomiting Uncoded 10/30/18 00:00 Active Medications: Current Medications Acetaminophen (Acetaminophen 325 Mg Tablet) 650 mg PO Q6H PRN PRN Reason: Pain, Mild (Pain Scale 1-3) Acyclovir Sodium 500 mg/ (Dextrose) 110 mls @ 110 mls/hr IV ONCE ONE Stop: 06/09/22 00:06 Vancomycin HCl (Vancomycin/Ns) 2,000 mg in 520 mls @ 260 mls/hr IV ONCE ONE Stop: 06/09/22 01:06 Melatonin (Melatonin 3 Mg Tablet) 6 mg PO BEDTIME PRN PRN Reason: Insomnia Pharmacy Consult (Consult Rx Vancomycin Dosing) 1 each MISCELLANE DAILY PRN PRN Reason: Consult order Senna (Sennosides 8.6 Mg Tablet) 17.2 mg PO BEDTIME PRN PRN Reason: Constipation Sodium Chloride (0.9 % Sodium Chloride Flush 3 Ml Syringe) 3 ml IVFLUSH QSHIFT [facility] Home Medications Medication Instructions Recorded Confirmed Last Taken Type B12 1,000 mg PO DAILY 06/09/22 06/09/22 06/08/22 History Klor-Con M10 1 tab PO DAILY 06/09/22 06/09/22 06/08/22 History Trelegy Ellipta 100 mcg inhalation DAILY 06/09/22 06/09/22 06/02/22 History citalopram 40 mg PO DAILY 06/09/22 06/09/22 06/08/22 History levothyroxine 50 mcg PO DAILY 06/09/22 06/09/22 06/08/22 History pantoprazole 40 mg PO DAILY 06/09/22 06/09/22 06/08/22 History rosuvastatin 10 mg PO DAILY 06/09/22 06/09/22 06/08/22 History torsemide 20 mg PO DAILY 06/09/22 06/09/22 06/08/22 History warfarin 3 mg PO DAILY 06/09/22 06/09/22 06/08/22 History Physical Exam Vital Signs and Narrative: Vital Signs: Last Vital Signs Temp 98 F 06/08/22 16:38 Pulse 72 06/08/22 21:24 Resp 18 06/08/22 16:38 BP 122/67 06/08/22 21:24 Pulse Ox 93 06/08/22 21:24 O2 Del Method 06/08/22 21:24 BMI result Body Mass Index 56.2 Gen: Appears be in no acute distress HEENT: NCAT, Moist mucosa. Pulmonary: Vesicular breath sounds, fair air entry CVS: Normal S1-S2 Abdomen: BS+, Soft, Nontender Extremities: Warm well perfused Neuro: Alert and awake. Grossly nonfocal; oriented x3 Results Labs CBC and Chem 7: 06/08/22 17:54 06/08/22 17:54 Labs: Laboratory Results - last 24 hr 06/08/22 06/08/22 06/08/22 17:54 17:54 17:54 MCV 90.3 MCH 28.2 MCHC 31.3 RDW 15.1 Plt Count 196 MPV 11.7 Immature Gran % (Auto) 0.8 H Neut % (Auto) 80.9 H Lymph % (Auto) 9.[address] [facility] % (Auto) 6.6 Eos % (Auto) 1.3 Baso % (Auto) 0.5 Lymph # (Auto) 1.[address] [facility] # (Auto) 0.7 Eos # (Auto) 0.1 Baso # (Auto) 0.1 Abs Immat Gran (auto) 0.08 H Absolute Neuts (auto) 8.2 Absolute Nucleated RBC 0.000 Nucleated RBC % (auto) 0.0 D-Dimer High Sensitivty Anion Gap 18 Estim Creat Clear Calc 59.8 Estimated GFR 39 Random Glucose 107 Calcium 9.1 Magnesium 1.9 Total Bilirubin 0.4 AST 11 ALT 6 Alkaline Phosphatase 90 Ammonia Total Protein 5.5 L Albumin 3.4 L Urine Color Urine Appearance Urine pH Ur Specific [place] Urine Protein Urine Glucose (UA) Urine Ketones Urine Blood Urine Nitrite Ur Leukocyte Esterase Urine RBC Urine WBC Ur Squamous Epith Cells Urine Bacteria Hyaline Casts Urine Opiates Screen Urine Fentanyl Screen Ur Barbiturates Screen Ur Phencyclidine Scrn Ur Amphetamines Screen U Benzodiazepines Scrn Urine Cocaine Screen U Marijuana (THC) Screen Ethyl Alcohol < 10 COVID-19 (MICHAEL) Negative COVID-19 Clin Com See Note 06/08/22 06/08/22 06/08/22 17:54 17:54 18:31 MCV MCH MCHC RDW Plt Count MPV Immature Gran % (Auto) Neut % (Auto) Lymph % (Auto) [facility] % (Auto) Eos % (Auto) Baso % (Auto) Lymph # (Auto) [facility] # (Auto) Eos # (Auto) Baso # (Auto) Abs Immat Gran (auto) Absolute Neuts (auto) Absolute Nucleated RBC Nucleated RBC % (auto) D-Dimer High Sensitivty 163 Anion Gap Estim Creat Clear Calc Estimated GFR Random Glucose Calcium Magnesium Total Bilirubin AST ALT Alkaline Phosphatase Ammonia 17 Total Protein Albumin Urine Color Yellow Urine Appearance Clear Urine pH 5.5 Ur Specific [place] 1.015 Urine Protein Trace Urine Glucose (UA) Negative Urine Ketones Negative Urine Blood Moderate (2+) H Urine Nitrite Negative Ur Leukocyte Esterase Trace H Urine RBC >20 H Urine WBC 0-5 Ur Squamous Epith Cells 6-10 Urine Bacteria None Seen Hyaline Casts 6-10 Urine Opiates Screen Urine Fentanyl Screen Ur Barbiturates Screen Ur Phencyclidine Scrn Ur Amphetamines Screen U Benzodiazepines Scrn Urine Cocaine Screen U Marijuana (THC) Screen Ethyl Alcohol COVID-19 (MICHAEL) COVID-19 [email or web address] Com 06/08/22 18:31 MCV MCH MCHC RDW Plt Count MPV Immature Gran % (Auto) Neut % (Auto) Lymph % (Auto) [facility] % (Auto) Eos % (Auto) Baso % (Auto) Lymph # (Auto) [facility] # (Auto) Eos # (Auto) Baso # (Auto) Abs Immat Gran (auto) Absolute Neuts (auto) Absolute Nucleated RBC Nucleated RBC % (auto) D-Dimer High Sensitivty Anion Gap Estim Creat Clear Calc Estimated GFR Random Glucose Calcium Magnesium Total Bilirubin AST ALT Alkaline Phosphatase Ammonia Total Protein Albumin Urine Color Urine Appearance Urine pH Ur Specific [place] Urine Protein Urine Glucose (UA) Urine Ketones Urine Blood Urine Nitrite Ur Leukocyte Esterase Urine RBC Urine WBC Ur Squamous Epith Cells Urine Bacteria Hyaline Casts Urine Opiates Screen Not Detected Urine Fentanyl Screen Not Detected Ur Barbiturates Screen Not Detected Ur Phencyclidine Scrn Not Detected Ur Amphetamines Screen Not Detected U Benzodiazepines Scrn Not Detected Urine Cocaine Screen Not Detected U Marijuana (THC) Screen Not Detected Ethyl Alcohol COVID-19 (MICHAEL) COVID-19 Clin Com Imaging Radiologist's Impressions: Impressions Chest X-Ray 06/08/22 16:29 IMPRESSION: No acute cardiopulmonary process. Head CT 06/08/22 16:55 IMPRESSION: There is no acute finding here. There has been a left posterior craniotomy from previous exam there is encephalomalacia which is now present and there is some as described decreased attenuation in the adjacent white matter in the region. Although this could represent the patient's postoperative appearance tumor cannot be excluded. As described there is also felt to be new area of decreased attenuation which is just superior to the caudate and adjacent to the caudate on the right adjacent also at the level the anterior aspect of the body of the right lateral ventricle. This could represent white matter ischemic change however underlying lesion again cannot be excluded. Given these findings Recommendation is pre and postcontrast MRI for further evaluation. Head/Neck CTA 06/08/22 21:12 IMPRESSION: 1. No evidence of acute intracranial hemorrhage or edematous territorial infarction. 2. Changes of left parietal craniotomy for resection of a previously demonstrated subjacent extra-axial mass (presumably an underlying meningioma). Compared to most recent available prior exam in 2018, the bulk of the mass along the left posterior vertex has been resected with adjacent encephalomalacia of the left parietal lobe. However, there appears to be increased tumor bulk filling the posterior aspect of the superior sagittal sinus on today's exam. 3. CTA of the head and neck without proximal occlusion or flow-limiting stenosis. 4. Moderate multilevel degenerative spondyloarthropathy of the cervical spine. Assessment and Plan (1) Acute alteration in mental status: Status: Acute Plan 76-year-old female with a past medical history of hypertension, hyperlipidemia, diabetes, history of DVT on Coumadin, GERD, hypothyroidism, history of meningioma status post resection in February 2022; presented to the hospital today with a chief complaint of confusion. Altered mental status: Patient has waxing and waning mental status. Patient reportedly has auditory and visual hallucinations Denies any seizure-like activity Exam nonfocal CT head showed left posterior craniotomy/encephalomalacia; Also radiologist mentioned ?Concerns for possible tumor bulk filling the posterior aspect of the superior sagittal sinus. Oncology consult LP negative for infection Neurology consult Aspiration precautions History of VT: Continue home Coumadin History of hypertension/hyperlipidemia: Continue home statin History of hypothyroidism: Continue home levothyroxine History of depression: Continue home citalopram DVT prophylaxis: SCD boots Code status: Full code Quality Stroke Does the patient have a stroke diagnosis?: No VTE Prior VTE?: No VTE Risk Level:: Medical - moderate - high VTE Device Contraindication: N/A - Device Ordered VTE Drug Contraindication: Treatment Not Indicated
[2022-06-09] VITALS: BP 114/47; PULSE 73; RESP 20; TEMP 36.8; O2SAT 93
[2022-06-09] MEDS: 0.9 % Sodium Chloride Flush 3 ML SYRINGE IVFLUSH ×3 (00:22→21:25)
[2022-06-09] MEDS: cefTRIAXone sodium 2 GM in 0.9 % Sodium Chloride 50 ML IV (00:23)
[2022-06-09 00:27] LABS: Lactic Acid 0.9 mmol/L (0.5-2.0)
[2022-06-09 00:29] LABS: CSF Appearance Clear, Colorless; CSF Tube # 2
[2022-06-09 00:36] LABS: B Type Natriuretic Peptide 83 pg/mL (<100); Troponin-I High Sensitivity 14.2 ng/L (<3.5-17.0)
[2022-06-09 01:09] LABS: Glucose CSF 64 mg/dL
[2022-06-09 01:33] LABS: Appearance CSF CLEAR; CSF Tube # 4; Color CSF COLORLESS; Lymphocytes CSF 2 %; Red Blood Cell CSF 0 MM*3; White Blood Cell CSF 1 MM*3
--- NOTE | 2022-06-09 02:07 | PC.NURSE ---
Spoke with pt daughter briefly who reported pt has been seeing people in the backyard, starting up lawnmowers, and children playing. While I was with the pt, she reported that she saw a sandwich, cookie, and glass of milk in front of her but when she went to eat it, it disappeared. She was also seen picking at something on her melissa. Nothing was present that she was picking at but she stated there were pills that spilt everywhere. I told the pt there were no pills but she continued to search for ones that she believed she dropped.
[2022-06-09 02:22] LABS: Cryptococcus neoformans/gattii Not Detected (Not Detect.); Enterovirus Not Detected (Not Detect.); Escherichia coli K1 Not Detected (Not Detect.); Haemophilus influenzae Not Detected (Not Detect.); Herpes simplex virus 1 Not Detected (Not Detect.); Herpes simplex virus 2 Not Detected (Not Detect.); Human herpesvirus 6 Not Detected (Not Detect.); Human parechovirus Not Detected (Not Detect.); Listeria monocytogenes Not Detected (Not Detect.); Neisseria meningitidis Not Detected (Not Detect.); Streptococcus agalactiae Not Detected (Not Detect.); Streptococcus pneumoniae Not Detected (Not Detect.); Varicella zoster virus Not Detected (Not Detect.)
[2022-06-09] MEDS: Acyclovir Sodium 500 MG in Dextrose 5 % 100 ML 110 MG IV (02:45)
[2022-06-09 04:59] VITALS: BP 138/66; PULSE 80; RESP 14; O2SAT 94
[2022-06-09 06:57] LABS: Basophils Percent Auto 0.1 % (0-2); Hematocrit 40.8 % (37.0-47.0); Hemoglobin 12.9 g/dl (12.0-16.0); Imm Gran Abs Auto 0.08 X10*3/uL (0.00-0.03); Lymphocytes Absolute Auto 0.4 X10*3/uL (1.2-4.9); Lymphocytes Percent Auto 4.9 % (20-40); MANUAL DIFF FLAG SCAN; Mean Corpuscular HGB Conc 31.6 g/dl (31.0-35.0); Mean Corpuscular Volume 91.7 fL (80.0-98.0); Mean Platelet Volume 12.3 fL (9.4-12.3); Monocytes Percent Auto 0.4 % (2-11); Neutrophils Absolute Auto 7.4 x10*3/uL (2.0-8.3); Neutrophils Percent Auto 93.6 % (45-73); Platelet Count 170 X10*3/uL (160-400); Red Blood Count 4.45 X10*6/uL (4.20-5.50); SCAN SMEAR FLAG 1
[2022-06-09 07:04] LABS: Anion Gap 17 (12-20); Blood Urea Nitrogen 19 mg/dL (9-16); Carbon Dioxide 24 mmol/L (22-29); Chloride 103 mmol/L (96-108); Creatinine Clr Calc Pharmacy 69.2; Estimated Glomerular Filt Rate 46; Glucose Random 153 mg/dL (60-115); Potassium 4.4 mmol/L (3.3-5.1); Sodium 140 mmol/L (135-145)
--- NOTE | 2022-06-09 07:23 | PHA.MEDREC ---
Pharmacy Consult ? Medication Reconciliation Pharmacy has reviewed the medication reconciliation by
[2022-06-09 07:24] LABS: SLIDE REVIEW VERIFIED
[2022-06-09 08:04] VITALS: BP 141/73; PULSE 87; RESP 14; TEMP 36.5; O2SAT 97
[2022-06-09 08:10] LABS: Glucose, Whole Blood 168 mg/dL (60-115)
--- NOTE | 2022-06-09 08:24 | PC.NURSE ---
pt is a/o x 1 no sob/[place] noted skin pink warm dry speaks in full sentences. pt is npo. lungs - cta, heart sound - regular. abd obese, soft, n/t, bs + x 4 quads. pt is calm .
--- NOTE | 2022-06-09 11:20 | MHC.CM.PN ---
CM MET WITH PT, HER DAUGHTER, AND HER NIECE AT BEDSIDE PT RECENTLY MOVED INTO HER DAUGHTERS HOME AFTER MOVING BACK FROM [place] WHERE SHE LIVED FOR A COUPLE OF YEARS. PT CURRENTLY HAS NO SERVICES AND NO PCP PT DOES USE A WALKER AND A WHEEL CHAIR THEY REPORT PT HAS A HCP NAMING HER DAUGHTER, KAYE HER AGENT-COPY REQUESTED PT IS COVID VACCINATED AND BOOSTED IMM DELIVERED, COPY SENT TO [facility] DAUGHTER IS REQUESTING VNA SERVICES PT HAS ALSO BEEN ON COUMADIN AND IS CONCERNED ABOUT HER ABILITY TO GET TO THE CLINIC PT DID HAVE A NEW PT APPT SCHEDULED FOR THIS MORNING WITH VASHTI CANTU, HOWEVER SHE ENDED UP IN THE ED. PTS APPT WITH DR CANTU HAS BEEN RESCHEDULED FOR Monday06/16/22 AT 1400 HOURS PT AND FAMILY ARE AWARE CM WILL MAKE A VNA REFERRAL AND REQUEST THEY FOLLOW
[2022-06-09 12:12] VITALS: BP 139/65; PULSE 81; RESP 14; TEMP 36.4; O2SAT 96
--- NOTE | 2022-06-09 12:17 | PM.NEUROCN ---
History of Present Illness Data of Consult Service Date: 06/09/22 Primary Care Provider: Unknown Physician HPI Reason for consult: Hallucination 76 years old woman who stated that she had a meningioma surgery done in [place] in February of this year. Prior to that she was on Keppra and prednisone and during that time she was having hallucinations. When those medicines were ultimately. She stopped having hallucinations. Recently she developed right hand pain and was prescribed some oxycodone after which she started having hallucinations again. Now she was in emergency room and provided this story. There was no evidence of any recent seizure or focal weakness. Review of Systems Review of Systems: Right wrist and hand pain. [facility] Social History Social History Alcohol intake: never Patient Tobacco Use Status: Never used Tobacco service: No Current occupational status: retired [employer] Allergies Allergy/AdvReac Type Severity Reaction Status Date / Time Iodinated Contrast Media Allergy Unknown VOMITING Unverified 06/11/20 14:34 [IV DYE, IODINE CONTAINING CONTRAST ] IVP dye Allergy Unknown vomiting Uncoded 10/30/18 00:00 Active Medications: Current Medications Acetaminophen (Acetaminophen 325 Mg Tablet) 650 mg PO Q4H PRN PRN Reason: Headache Atorvastatin Calcium (Atorvastatin Calcium 40 Mg Tablet) 40 mg PO DAILY [facility] Escitalopram Oxalate (Escitalopram Oxalate 20 Mg Tablet) 20 mg PO DAILY [facility] Levothyroxine Sodium (Levothyroxine Sodium 50 Mcg Tablet) 50 mcg PO DAILY@0600 [facility] Melatonin (Melatonin 3 Mg Tablet) 6 mg PO BEDTIME PRN PRN Reason: Insomnia Non-Formulary Medication (Trelegy Ellipta) 100 mcg INHALE DAILY [facility] Omeprazole (Omeprazole 20 Mg Capsule.Dr) 20 mg PO DAILY@0630 [facility] Potassium Chloride (Potassium Chloride Er 10 Meq Capsule.Er) 10 meq PO DAILY [facility] Senna (Sennosides 8.6 Mg Tablet) 17.2 mg PO BEDTIME PRN PRN Reason: Constipation Sodium Chloride (0.9 % Sodium Chloride Flush 3 Ml Syringe) 3 ml IVFLUSH QSHIFT [facility] Last Admin: 06/09/22 11:00 Dose: 3 ml Torsemide (Torsemide 20 Mg Tablet) 20 mg PO DAILY [facility] Warfarin Sodium (Warfarin Sodium 3 Mg Tablet) 3 mg PO DAILY@1800 [facility] Home Medications Medication Instructions Recorded Confirmed Last Taken Type B12 1,000 mg PO DAILY 06/09/22 06/09/22 06/08/22 History Klor-Con M10 1 tab PO DAILY 06/09/22 06/09/22 06/08/22 History Trelegy Ellipta 100 mcg inhalation DAILY 06/09/22 06/09/22 06/02/22 History citalopram 40 mg PO DAILY 06/09/22 06/09/22 06/08/22 History levothyroxine 50 mcg PO DAILY 06/09/22 06/09/22 06/08/22 History pantoprazole 40 mg PO DAILY 06/09/22 06/09/22 06/08/22 History rosuvastatin 10 mg PO DAILY 06/09/22 06/09/22 06/08/22 History torsemide 20 mg PO DAILY 06/09/22 06/09/22 06/08/22 History warfarin 3 mg PO DAILY 06/09/22 06/09/22 06/08/22 History Physical Exam Vital Signs: Vital Signs: Last Vital Signs Temp 97.6 F 06/09/22 12:12 Pulse 81 06/09/22 12:12 Resp 14 06/09/22 12:12 BP 139/65 06/09/22 12:12 Pulse Ox 96 06/09/22 12:12 O2 Del Method 06/09/22 12:12 BMI result Body Mass Index 56.2 Neuro: Other: Alert and awake with normal spontaneity of speech fluency comprehension and affect. She has difficulty with hearing but with shouting she was able to comprehend. Face was symmetrical. Visual omalley were full to confrontation. Tongue was midline. There was no pronator drift. Ogizuc-br-dojn testing was normal. Plantars were flexor. Deep tendon reflexes were 1+. She was significantly obese. Results Labs CBC & Chem 7: 06/09/22 05:43 06/09/22 05:43 Labs: Short CBC 06/08/22 06/09/22 Range/Units 17:54 05:43 WBC 10.2 8.0 (4.8-10.8) X10*3/uL Hgb 12.5 12.9 (12.0-16.0) g/dl Hct 40.0 40.8 (37.0-47.0) % Plt Count 196 170 (160-400) X10*3/uL BMP 06/08/22 06/09/22 17:54 05:43 Sodium 143 140 Potassium 4.1 4.4 Chloride 104 103 Carbon Dioxide 25 24 BUN 20 H 19 H Creatinine 1.33 1.15 Calcium 9.1 9.0 Liver Function 06/08/22 Range/Units 17:54 Total Bilirubin 0.4 (0.0-1.0) mg/dL AST 11 (5-31) U/L ALT 6 (0-31) U/L Alkaline Phosphatase 90 (39-117) U/L Albumin 3.4 L (3.5-5.0) g/dL Urine 06/08/22 Range/Units 18:31 Urine Color Yellow Urine Appearance Clear Urine pH 5.5 (5.0-9.0) Ur Specific [place] 1.015 (1.005-1.025) Urine Protein Trace (Neg-Trace) mg/dL Urine Glucose (UA) Negative (Negative) mg/dL Head CT and CTA were reviewed. It revealed evidence of left parietal occipital craniotomy and encephalomalacia with no obvious acute lesion. Microbiology Microbiology Results: Microbiology 06/09/22 00:20 Cerebrospinal Fluid Gram Stain - Final 06/09/22 00:20 Cerebrospinal Fluid CSF Examination - Final 06/09/22 00:20 Cerebrospinal Fluid Fluid Description - Final Assessment and Plan (1) Acute alteration in mental status: Status: Acute (2) Hallucinations: Status: Acute 76 years old woman who reported that she had hallucinations in the past when she was taking prednisone and Keppra around the time she was being treated for cerebral meningioma, which ultimately was resected in February. After those medicines were stopped, she stopped having hallucinations. More recently she was given oxycodone resulting in hallucinations again. On examination there was no focal finding. She had hearing impairment, morbid obesity, and imaging revealing chronic encephalomalacia. Her imaging also revealed bilateral frontoparietal cortical atrophy putting her at risk for encephalopathy or psychological side effect of medicines. As far as meningioma is concerned, there is no indication of any acuteness. My recommendation is to avoid medicines that could result in psychological side effects. Procedures Date of Service Date of Service: 06/09/22
--- NOTE | 2022-06-09 14:35 | P.PNIM_ITS ---
Subjective Subjective Date of Service: 06/09/22 Interval History: No acute issues overnight. Continues to have visual and auditory hallucinations Review of Systems Denies chest pain Denies shortness of breath Denies nausea vomiting diarrhea Denies fever chills Physical Exam Vital Signs: Vital Signs: Last Vital Signs Temp 97.6 F 06/09/22 12:12 Pulse 81 06/09/22 12:12 Resp 14 06/09/22 12:12 BP 139/65 06/09/22 12:12 Pulse Ox 96 06/09/22 12:12 O2 Del Method 06/09/22 12:12 BMI result Body Mass Index 56.2 Const: Other: No acute distress. Appears to be responding to internal stimuli Resp: Other: Clear to auscultation bilaterally no rales rhonchi or wheezes Cardio: Other: No S4; positive S1-S2; no S3 murmurs rubs or gallops GI: Other: Soft nontender nondistended normoactive bowel sounds Extrem: Other: No edema bilaterally Objective Data Active Medications Acetaminophen (Acetaminophen 325 Mg Tablet) 650 mg PO Q4H PRN PRN Reason: Headache Atorvastatin Calcium (Atorvastatin Calcium 40 Mg Tablet) 40 mg PO DAILY [facility] Escitalopram Oxalate (Escitalopram Oxalate 20 Mg Tablet) 20 mg PO DAILY [facility] Levothyroxine Sodium (Levothyroxine Sodium 50 Mcg Tablet) 50 mcg PO DAILY@0600 [facility] Melatonin (Melatonin 3 Mg Tablet) 6 mg PO BEDTIME PRN PRN Reason: Insomnia Non-Formulary Medication (Trelegy Ellipta) 100 mcg INHALE DAILY [facility] Omeprazole (Omeprazole 20 Mg Capsule.Dr) 20 mg PO DAILY@0630 [facility] Potassium Chloride (Potassium Chloride Er 10 Meq Capsule.Er) 10 meq PO DAILY [facility] Senna (Sennosides 8.6 Mg Tablet) 17.2 mg PO BEDTIME PRN PRN Reason: Constipation Sodium Chloride (0.9 % Sodium Chloride Flush 3 Ml Syringe) 3 ml IVFLUSH QSHIFT [facility] Last Admin: 06/09/22 11:00 Dose: 3 ml Documented By: ORALIA Torsemide (Torsemide 20 Mg Tablet) 20 mg PO DAILY [facility] Warfarin Sodium (Warfarin Sodium 3 Mg Tablet) 3 mg PO DAILY@1800 [facility] Labs CBC & Chem 7: 06/09/22 05:43 06/09/22 05:43 Labs: Laboratory Results - last 24 hr 0906/08/22 06/08/22 17:54 17:54 17:54 MCV 90.3 MCH 28.2 MCHC 31.3 RDW 15.1 Plt Count 196 MPV 11.7 Immature Gran % (Auto) 0.8 H Neut % (Auto) 80.9 H Lymph % (Auto) 9.9 L [place] % (Auto) 6.6 Eos % (Auto) 1.3 Baso % (Auto) 0.5 Lymph # (Auto) 1.0 L [place] # (Auto) 0.7 Eos # (Auto) 0.1 Baso # (Auto) 0.1 Abs Immat Gran (auto) 0.08 H Absolute Neuts (auto) 8.2 Absolute Nucleated RBC 0.000 Nucleated RBC % (auto) 0.0 Smear Tech's Comments D-Dimer High Sensitivty Anion Gap 18 Estim Creat Clear Calc 59.8 Estimated GFR 39 POC Glucose Random Glucose 107 Lactic Acid Calcium 9.1 Magnesium 1.9 Total Bilirubin 0.4 AST 11 ALT 6 Alkaline Phosphatase 90 Ammonia B-Natriuretic Peptide Total Protein 5.5 L Albumin 3.4 L Urine Color Urine Appearance Urine pH Ur Specific [place] Urine Protein Urine Glucose (UA) Urine Ketones Urine Blood Urine Nitrite Ur Leukocyte Esterase Urine RBC Urine WBC Ur Squamous Epith Cells Urine Bacteria Hyaline Casts CSF Tube Number CSF Volume CSF Appearance CSF Color CSF WBC CSF RBC CSF Lymphocytes CSF Appearance (b) CSF Glucose CSF C.neoform/gat PCR CSF CMV DNA (PCR) CSF Enterovirus (PCR) CSF E. coli K1 (PCR) CSF H. influenzae (PCR) CSF HSV I (PCR) CSF HSV II (PCR) CSF HHV 6 (PCR) CSF L.monocytogenes PCR CSF N. meningitidis PCR CSF Parechovirus (PCR) CSF S. agalactiae (PCR) CSF S. pneumoniae (PCR) CSF VZV (PCR) Urine Opiates Screen Urine Fentanyl Screen Ur Barbiturates Screen Ur Phencyclidine Scrn Ur Amphetamines Screen U Benzodiazepines Scrn Urine Cocaine Screen U Marijuana (THC) Screen Ethyl Alcohol < 10 COVID-19 (MICHAEL) Negative COVID-19 Clin Com See Note 06/08/22 06/08/22 06/08/22 17:54 17:54 18:31 MCV MCH MCHC RDW Plt Count MPV Immature Gran % (Auto) Neut % (Auto) Lymph % (Auto) [place] % (Auto) Eos % (Auto) Baso % (Auto) Lymph # (Auto) [place] # (Auto) Eos # (Auto) Baso # (Auto) Abs Immat Gran (auto) Absolute Neuts (auto) Absolute Nucleated RBC Nucleated RBC % (auto) Smear Tech's Comments D-Dimer High Sensitivty 163 Anion Gap Estim Creat Clear Calc Estimated GFR POC Glucose Random Glucose Lactic Acid Calcium Magnesium Total Bilirubin AST ALT Alkaline Phosphatase Ammonia 17 B-Natriuretic Peptide Total Protein Albumin Urine Color Yellow Urine Appearance Clear Urine pH 5.5 Ur Specific [place] 1.015 Urine Protein Trace Urine Glucose (UA) Negative Urine Ketones Negative Urine Blood Moderate (2+) H Urine Nitrite Negative Ur Leukocyte Esterase Trace H Urine RBC >20 H Urine WBC 0-5 Ur Squamous Epith Cells 6-10 Urine Bacteria None Seen Hyaline Casts 6-10 CSF Tube Number CSF Volume CSF Appearance CSF Color CSF WBC CSF RBC CSF Lymphocytes CSF Appearance (b) CSF Glucose CSF C.neoform/gat PCR CSF CMV DNA (PCR) CSF Enterovirus (PCR) CSF E. coli K1 (PCR) CSF H. influenzae (PCR) CSF HSV I (PCR) CSF HSV II (PCR) CSF HHV 6 (PCR) CSF L.monocytogenes PCR CSF N. meningitidis PCR CSF Parechovirus (PCR) CSF S. agalactiae (PCR) CSF S. pneumoniae (PCR) CSF VZV (PCR) Urine Opiates Screen Urine Fentanyl Screen Ur Barbiturates Screen Ur Phencyclidine Scrn Ur Amphetamines Screen U Benzodiazepines Scrn Urine Cocaine Screen U Marijuana (THC) Screen Ethyl Alcohol COVID-19 (MICHAEL) COVID-19 Clin Com 06/08/22 06/09/22 06/09/22 18:31 00:11 00:11 MCV MCH MCHC RDW Plt Count MPV Immature Gran % (Auto) Neut % (Auto) Lymph % (Auto) [place] % (Auto) Eos % (Auto) Baso % (Auto) Lymph # (Auto) [place] # (Auto) Eos # (Auto) Baso # (Auto) Abs Immat Gran (auto) Absolute Neuts (auto) Absolute Nucleated RBC Nucleated RBC % (auto) Smear Tech's Comments D-Dimer High Sensitivty Anion Gap Estim Creat Clear Calc Estimated GFR POC Glucose Random Glucose Lactic Acid 0.9 Calcium Magnesium Total Bilirubin AST ALT Alkaline Phosphatase Ammonia B-Natriuretic Peptide 83 Total Protein Albumin Urine Color Urine Appearance Urine pH Ur Specific [place] Urine Protein Urine Glucose (UA) Urine Ketones Urine Blood Urine Nitrite Ur Leukocyte Esterase Urine RBC Urine WBC Ur Squamous Epith Cells Urine Bacteria Hyaline Casts CSF Tube Number CSF Volume CSF Appearance CSF Color CSF WBC CSF RBC CSF Lymphocytes CSF Appearance (b) CSF Glucose CSF C.neoform/gat PCR CSF CMV DNA (PCR) CSF Enterovirus (PCR) CSF E. coli K1 (PCR) CSF H. influenzae (PCR) CSF HSV I (PCR) CSF HSV II (PCR) CSF HHV 6 (PCR) CSF L.monocytogenes PCR CSF N. meningitidis PCR CSF Parechovirus (PCR) CSF S. agalactiae (PCR) CSF S. pneumoniae (PCR) CSF VZV (PCR) Urine Opiates Screen Not Detected Urine Fentanyl Screen Not Detected Ur Barbiturates Screen Not Detected Ur Phencyclidine Scrn Not Detected Ur Amphetamines Screen Not Detected U Benzodiazepines Scrn Not Detected Urine Cocaine Screen Not Detected U Marijuana (THC) Screen Not Detected Ethyl Alcohol COVID-19 (MICHAEL) COVID-19 Clin Com 06/09/22 06/09/22 06/09/22 00:20 00:20 00:20 MCV MCH MCHC RDW Plt Count MPV Immature Gran % (Auto) Neut % (Auto) Lymph % (Auto) [place] % (Auto) Eos % (Auto) Baso % (Auto) Lymph # (Auto) [place] # (Auto) Eos # (Auto) Baso # (Auto) Abs Immat Gran (auto) Absolute Neuts (auto) Absolute Nucleated RBC Nucleated RBC % (auto) Smear Tech's Comments D-Dimer High Sensitivty Anion Gap Estim Creat Clear Calc Estimated GFR POC Glucose Random Glucose Lactic Acid Calcium Magnesium Total Bilirubin AST ALT Alkaline Phosphatase Ammonia B-Natriuretic Peptide Total Protein Albumin Urine Color Urine Appearance Urine pH Ur Specific [place] Urine Protein Urine Glucose (UA) Urine Ketones Urine Blood Urine Nitrite Ur Leukocyte Esterase Urine RBC Urine WBC Ur Squamous Epith Cells Urine Bacteria Hyaline Casts CSF Tube Number 2 4 CSF Volume 1.0 CSF Appearance CLEAR CSF Color COLORLESS CSF WBC 1 CSF RBC 0 CSF Lymphocytes 2 CSF Appearance (b) Clear, Colorless CSF Glucose 64 CSF C.neoform/gat PCR Not Detected CSF CMV DNA (PCR) Not Detected CSF Enterovirus (PCR) Not Detected CSF E. coli K1 (PCR) Not Detected CSF H. influenzae (PCR) Not Detected CSF HSV I (PCR) Not Detected CSF HSV II (PCR) Not Detected CSF HHV 6 (PCR) Not Detected CSF L.monocytogenes PCR Not Detected CSF N. meningitidis PCR Not Detected CSF Parechovirus (PCR) Not Detected CSF S. agalactiae (PCR) Not Detected CSF S. pneumoniae (PCR) Not Detected CSF VZV (PCR) Not Detected Urine Opiates Screen Urine Fentanyl Screen Ur Barbiturates Screen Ur Phencyclidine Scrn Ur Amphetamines Screen U Benzodiazepines Scrn Urine Cocaine Screen U Marijuana (THC) Screen Ethyl Alcohol COVID-19 (MICHAEL) COVID-19 Clin Com 06/09/22 06/09/22 06/09/22 05:43 05:43 08:00 MCV 91.7 MCH 29.0 MCHC 31.6 RDW 15.0 Plt Count 170 MPV 12.3 Immature Gran % (Auto) 1.0 H Neut % (Auto) 93.6 H Lymph % (Auto) 4.9 L [place] % (Auto) 0.4 L Eos % (Auto) 0.0 Baso % (Auto) 0.1 Lymph # (Auto) 0.4 L [place] # (Auto) 0.0 L Eos # (Auto) 0.0 Baso # (Auto) 0.0 Abs Immat Gran (auto) 0.08 H Absolute Neuts (auto) 7.4 Absolute Nucleated RBC 0.000 Nucleated RBC % (auto) 0.0 Smear Tech's Comments VERIFIED D-Dimer High Sensitivty Anion Gap 17 Estim Creat Clear Calc 69.2 Estimated GFR 46 POC Glucose 168 H Random Glucose 153 H Lactic Acid Calcium 9.0 Magnesium Total Bilirubin AST ALT Alkaline Phosphatase Ammonia B-Natriuretic Peptide Total Protein Albumin Urine Color Urine Appearance Urine pH Ur Specific [place] Urine Protein Urine Glucose (UA) Urine Ketones Urine Blood Urine Nitrite Ur Leukocyte Esterase Urine RBC Urine WBC Ur Squamous Epith Cells Urine Bacteria Hyaline Casts CSF Tube Number CSF Volume CSF Appearance CSF Color CSF WBC CSF RBC CSF Lymphocytes CSF Appearance (b) CSF Glucose CSF C.neoform/gat PCR CSF CMV DNA (PCR) CSF Enterovirus (PCR) CSF E. coli K1 (PCR) CSF H. influenzae (PCR) CSF HSV I (PCR) CSF HSV II (PCR) CSF HHV 6 (PCR) CSF L.monocytogenes PCR CSF N. meningitidis PCR CSF Parechovirus (PCR) CSF S. agalactiae (PCR) CSF S. pneumoniae (PCR) CSF VZV (PCR) Urine Opiates Screen Urine Fentanyl Screen Ur Barbiturates Screen Ur Phencyclidine Scrn Ur Amphetamines Screen U Benzodiazepines Scrn Urine Cocaine Screen U Marijuana (THC) Screen Ethyl Alcohol COVID-19 (MICHAEL) COVID-19 Clin Com Microbiology Microbiology Results: Microbiology 06/09/22 00:20 Gram Stain - Final Cerebrospinal Fluid CSF Examination - Final Fluid Description - Final Assessment and Plan (1) Acute alteration in mental status: Status: Acute (2) Hallucinations: Status: Acute (3) DVT (deep venous thrombosis): Status: Acute (4) HTN (hypertension): Status: Acute Plan 76-year-old female with a past medical history of hypertension, hyperlipidemia, diabetes, history of DVT on Coumadin, GERD, hypothyroidism, history of meningioma status post resection in February 2022; presented to the hospital today with a chief complaint of confusion.? Audio and visual hallucinations started after taking oxycodone for wrist pain 1. Acute alteration in mental status (audio/visual hallucinations) -CT results noted; records reviewed from [place] -discussed with oncology; will order MRI as recommended by CT read -no further oxycodone; Tylenol for pain 2. History of DVT -continue Coumadin with goal INR between 2-3 -daily INR 3. Hypertension -acceptable control on current therapies adjust as indicated 4. Hypothyroidism -continue outpatient supplements Coumadin Full code Requires ongoing hospitalization to complete workup of alteration in mental status Quality Stroke Does the patient have a stroke diagnosis?: No VTE Prior VTE?: No VTE Risk Level:: Medical - moderate - high VTE Device Contraindication: N/A - Device Ordered VTE Drug Contraindication: Treatment Not Indicated
[2022-06-09 15:02] VITALS: BP 138/46; PULSE 99; RESP 16; TEMP 36.5; O2SAT 95
--- NOTE | 2022-06-09 15:25 | PC.NURSE ---
mri (thee) called to say the pt's weight has exceeded the mri machine. dr. servin and primary rn nata jett.
[2022-06-09] MEDS: QUEtiapine Fumarate 25 MG TABLET PO ×2 (16:32→21:20)
[2022-06-09 19:05] LABS: INTERNATIONAL NORM RATIO 2.6 (0.9-1.1); Prothrombin Time 31.6 SEC (10.0-13.1)
[2022-06-09 21:47] VITALS: BP 142/70; PULSE 95; RESP 18; TEMP 37.1; O2SAT 94
[2022-06-09] MEDS: Warfarin Sodium 4 MG TABLET PO (21:52)
[2022-06-10] VITALS: BP 175/87; PULSE 104; RESP 18; TEMP 37.1; O2SAT 94
[2022-06-10 03:38] VITALS: BP 141/65; PULSE 97; RESP 20; TEMP 36.8; O2SAT 93
[2022-06-10 06:50] LABS: MANUAL DIFF FLAG NO
[2022-06-10 06:55] LABS: Basophils Absolute Auto 0.1 X10*3/uL (0.0-0.2); Basophils Percent Auto 0.4 % (0-2); Hematocrit 40.3 % (37.0-47.0); Hemoglobin 12.7 g/dl (12.0-16.0); Imm Gran Pct Auto 0.8 % (0.0-0.4); Lymphocytes Absolute Auto 0.7 X10*3/uL (1.2-4.9); Lymphocytes Percent Auto 6.1 % (20-40); Mean Corpuscular HGB Conc 31.5 g/dl (31.0-35.0); Mean Corpuscular Hemoglobin 28.7 pg (27.0-33.0); Mean Corpuscular Volume 91.2 fL (80.0-98.0); Mean Platelet Volume 11.8 fL (9.4-12.3); Monocytes Absolute Auto 0.7 X10*3/uL (0.1-1.2); Monocytes Percent Auto 5.6 % (2-11); Neutrophils Absolute Auto 10.6 x10*3/uL (2.0-8.3); Neutrophils Percent Auto 87.1 % (45-73); Platelet Count 205 X10*3/uL (160-400); Red Blood Count 4.42 X10*6/uL (4.20-5.50); Red Cell Distribution Width 15.1 % (11.0-16.0); White Blood Count 12.2 X10*3/uL (4.8-10.8)
[2022-06-10 07:01] LABS: INTERNATIONAL NORM RATIO 2.8 (0.9-1.1); Prothrombin Time 33.1 SEC (10.0-13.1)
[2022-06-10 07:27] LABS: Alanine Aminotransferase 6 U/L (0-31); Albumin Level 3.6 g/dL (3.5-5.0); Alkaline Phosphatase 86 U/L (39-117); Anion Gap 18 (12-20); Aspartate Amino Transferase 11 U/L (5-31); Bilirubin Total 0.2 mg/dL (0.0-1.0); Blood Urea Nitrogen 25 mg/dL (9-16); Calcium 9.3 mg/dL (8.4-10.2); Carbon Dioxide 23 mmol/L (22-29); Chloride 104 mmol/L (96-108); Estimated Glomerular Filt Rate 32; Glucose Fasting 143 mg/dL (60-99); Potassium 3.8 mmol/L (3.3-5.1); Sodium 141 mmol/L (135-145); Total Protein 5.9 g/dL (6.5-8.0)
[2022-06-10 07:57] VITALS: BP 138/64; PULSE 90; RESP 20; TEMP 36.8; O2SAT 96
[2022-06-10] MEDS: Escitalopram Oxalate 20 MG TABLET PO (08:45)
[2022-06-10] MEDS: Atorvastatin Calcium 40 MG TABLET PO (08:45)
[2022-06-10] MEDS: 0.9 % Sodium Chloride Flush 3 ML SYRINGE IVFLUSH ×2 (08:45→15:35)
[2022-06-10] MEDS: Torsemide 20 MG TABLET PO (08:45)
--- NOTE | 2022-06-10 08:45 | MHC.CDI.CONC ---
CDI Concurrent Query Documentation Clarification: PHYSICIAN'S DOCUMENTATION REQUEST Date of Query: 06/10/22 0845 Patient Name: Megan Hensley Admit Date: 06/08/22 Dear Doctor, A review of the medical record indicates additional documentation may be needed. Please review below and update the documentation accordingly. Clinical Indicators: Risk Factors/Clinical Indicators/Treatments Neurology note 06/09 - Assessment - her imaging revealed bilateral frontoparietal cortical atrophy putting her at risk for encephalopathy or psychological side effects of medications. Altered mental status, began having hallucinations taking oxycodone/Keppra. Based on the above, please further specify, in the Progress Notes, the known or suspected type of the documented encephalopathy: Metabolic Toxic - due to medications Toxic metabolic Other (please specify) Unable to determine Use of terms such as suspected, likely, concern for, or probable (associated with a specific diagnosis that is being evaluated, monitored, or treated as if it exists) are acceptable and can be coded in the inpatient setting, when documented at the time of discharge. Thank you, Nkechi Fung [facility], CDIS Extension: [phone] Please use your independent medical judgment in providing your response. THIS QUERY IS PART OF THE PERMANENT MEDICAL RECORD Provider Response: Other Other Diagnosis: Unable to determine
[2022-06-10 10:53] VITALS: BP 146/66; PULSE 93; RESP 20; TEMP 36.8; O2SAT 98
[2022-06-10 11:54] LABS: Glucose, Whole Blood 112 mg/dL (60-115)
--- NOTE | 2022-06-10 13:55 | MHC.CM.PN ---
Female DX AMS
--- NOTE | 2022-06-10 13:57 | MHC.CM.PN ---
Female 76 DX Menengioma Halucinations continue. Neuro has ordered an MRI. The patients weight prohibts use of MRI @ [facility]. Patient may be transfered to [facility] for the MRI DP Home with NA. Her daughter will provide transportation.
--- NOTE | 2022-06-10 15:02 | PM.PSYCN ---
History of Present Illness Date of Service: t Chief Complaint: AMS Reason for Consult: Hallucinations Requesting physician: Kulwinder Juarez Discussed with referring provider: Yes Sources of Information: patient interviewed and chart reviewed HPI Narrative: the patient is a 76-year-old female, with several comorbidities admitted for pain. The patient recently had a surgery in [place] in February 2022 with a resection of a meningioma. After the surgery she received corticoids and Depakote and she had auditory hallucinations. The patient has never been psychotic in the past. Recently she received oxycodone and she already start having hallucinations again. The consultation was regarding the management of the hallucinations. On interview, the patient reported that she has lost nearly all her hearing after the surgery and she was able to recognize the hallucinations and she was able to recall how she got into the hospital. Even though, she was confused at times and nonsensical with an alternating mental status. Past Psychiatric History: Never admitted to the hospital as per the records she has been on Lexapro due to depression. Medical Evaluation Reviewed: Yes Personal & Social History: No history of substance abuse, good social support. [facility] Family History: Denies Substance History: denies Diagnostics Vital Signs (24Hr): Vital Signs - 24 hr 06/09/22 21:47 06/10/22 00:00 06/10/22 03:38 Temperature 98.7 F 98.7 F 98.2 F Pulse Rate 95 104 H 97 Respiratory Rate 18 18 20 Blood Pressure 142/70 H 175/87 H 141/65 H Pulse Oximetry 94 94 93 Oxygen Delivery Method Room Air Room Air Room Air 06/10/22 07:57 06/10/22 10:53 Temperature 98.2 F 98.3 F Pulse Rate 90 93 Respiratory Rate 20 20 Blood Pressure 138/64 146/66 H Pulse Oximetry 96 98 Oxygen Delivery Method Room Air Room Air BMI result Body Mass Index 56.2 Labs Results: 06/10/22 06:40 06/10/22 06:40 Labs: Laboratory Results - last 48 hr 06/08/22 06/08/22 06/08/22 17:54 17:54 17:54 WBC 10.2 RBC 4.43 Hgb 12.5 Hct 40.0 MCV 90.3 MCH 28.2 MCHC 31.3 RDW 15.1 Plt Count 196 MPV 11.7 Immature Gran % (Auto) 0.8 H Neut % (Auto) 80.9 H Lymph % (Auto) 9.[address] [place] % (Auto) 6.6 Eos % (Auto) 1.3 Baso % (Auto) 0.5 Lymph # (Auto) 1.[address] # (Auto) 0.7 Eos # (Auto) 0.1 Baso # (Auto) 0.1 Abs Immat Gran (auto) 0.08 H Absolute Neuts (auto) 8.2 Absolute Nucleated RBC 0.000 Nucleated RBC % (auto) 0.0 Smear Tech's Comments PT INR D-Dimer High Sensitivty Sodium 143 Potassium 4.1 Chloride 104 Carbon Dioxide 25 Anion Gap 18 BUN 20 H Creatinine 1.33 Estim Creat Clear Calc 59.8 Estimated GFR 39 POC Glucose Random Glucose 107 Fasting Glucose Lactic Acid Calcium 9.1 Magnesium 1.9 Total Bilirubin 0.4 AST 11 ALT 6 Alkaline Phosphatase 90 Ammonia Troponin I High Sens 14.7 B-Natriuretic Peptide Total Protein 5.5 L Albumin 3.4 L Urine Color Urine Appearance Urine pH Ur Specific [place] Urine Protein Urine Glucose (UA) Urine Ketones Urine Blood Urine Nitrite Ur Leukocyte Esterase Urine RBC Urine WBC Ur Squamous Epith Cells Urine Bacteria Hyaline Casts CSF Tube Number CSF Volume CSF Appearance CSF Color CSF WBC CSF RBC CSF Lymphocytes CSF Appearance (b) CSF Glucose CSF C.neoform/gat PCR CSF CMV DNA (PCR) CSF Enterovirus (PCR) CSF E. coli K1 (PCR) CSF H. influenzae (PCR) CSF HSV I (PCR) CSF HSV II (PCR) CSF HHV 6 (PCR) CSF L.monocytogenes PCR CSF N. meningitidis PCR CSF Parechovirus (PCR) CSF S. agalactiae (PCR) CSF S. pneumoniae (PCR) CSF VZV (PCR) Urine Opiates Screen Urine Fentanyl Screen Ur Barbiturates Screen Ur Phencyclidine Scrn Ur Amphetamines Screen U Benzodiazepines Scrn Urine Cocaine Screen U Marijuana (THC) Screen Ethyl Alcohol < 10 COVID-19 (MICHAEL) COVID-19 Clin Com 06/08/22 06/08/22 06/08/22 17:54 17:54 17:54 WBC RBC Hgb Hct MCV MCH MCHC RDW Plt Count MPV Immature Gran % (Auto) Neut % (Auto) Lymph % (Auto) [place] % (Auto) Eos % (Auto) Baso % (Auto) Lymph # (Auto) [place] # (Auto) Eos # (Auto) Baso # (Auto) Abs Immat Gran (auto) Absolute Neuts (auto) Absolute Nucleated RBC Nucleated RBC % (auto) Smear Tech's Comments PT INR D-Dimer High Sensitivty 163 Sodium Potassium Chloride Carbon Dioxide Anion Gap BUN Creatinine Estim Creat Clear Calc Estimated GFR POC Glucose Random Glucose Fasting Glucose Lactic Acid Calcium Magnesium Total Bilirubin AST ALT Alkaline Phosphatase Ammonia 17 Troponin I High Sens B-Natriuretic Peptide Total Protein Albumin Urine Color Urine Appearance Urine pH Ur Specific [place] Urine Protein Urine Glucose (UA) Urine Ketones Urine Blood Urine Nitrite Ur Leukocyte Esterase Urine RBC Urine WBC Ur Squamous Epith Cells Urine Bacteria Hyaline Casts CSF Tube Number CSF Volume CSF Appearance CSF Color CSF WBC CSF RBC CSF Lymphocytes CSF Appearance (b) CSF Glucose CSF C.neoform/gat PCR CSF CMV DNA (PCR) CSF Enterovirus (PCR) CSF E. coli K1 (PCR) CSF H. influenzae (PCR) CSF HSV I (PCR) CSF HSV II (PCR) CSF HHV 6 (PCR) CSF L.monocytogenes PCR CSF N. meningitidis PCR CSF Parechovirus (PCR) CSF S. agalactiae (PCR) CSF S. pneumoniae (PCR) CSF VZV (PCR) Urine Opiates Screen Urine Fentanyl Screen Ur Barbiturates Screen Ur Phencyclidine Scrn Ur Amphetamines Screen U Benzodiazepines Scrn Urine Cocaine Screen U Marijuana (THC) Screen Ethyl Alcohol COVID-19 (MICHAEL) Negative COVID-19 Clin Com See Note 06/08/22 06/08/22 06/09/22 18:31 18:31 00:11 WBC RBC Hgb Hct MCV MCH MCHC RDW Plt Count MPV Immature Gran % (Auto) Neut % (Auto) Lymph % (Auto) [place] % (Auto) Eos % (Auto) Baso % (Auto) Lymph # (Auto) [place] # (Auto) Eos # (Auto) Baso # (Auto) Abs Immat Gran (auto) Absolute Neuts (auto) Absolute Nucleated RBC Nucleated RBC % (auto) Smear Tech's Comments PT INR D-Dimer High Sensitivty Sodium Potassium Chloride Carbon Dioxide Anion Gap BUN Creatinine Estim Creat Clear Calc Estimated GFR POC Glucose Random Glucose Fasting Glucose Lactic Acid Calcium Magnesium Total Bilirubin AST ALT Alkaline Phosphatase Ammonia Troponin I High Sens 14.2 B-Natriuretic Peptide 83 Total Protein Albumin Urine Color Yellow Urine Appearance Clear Urine pH 5.5 Ur Specific [place] 1.015 Urine Protein Trace Urine Glucose (UA) Negative Urine Ketones Negative Urine Blood Moderate (2+) H Urine Nitrite Negative Ur Leukocyte Esterase Trace H Urine RBC >20 H Urine WBC 0-5 Ur Squamous Epith Cells 6-10 Urine Bacteria None Seen Hyaline Casts 6-10 CSF Tube Number CSF Volume CSF Appearance CSF Color CSF WBC CSF RBC CSF Lymphocytes CSF Appearance (b) CSF Glucose CSF C.neoform/gat PCR CSF CMV DNA (PCR) CSF Enterovirus (PCR) CSF E. coli K1 (PCR) CSF H. influenzae (PCR) CSF HSV I (PCR) CSF HSV II (PCR) CSF HHV 6 (PCR) CSF L.monocytogenes PCR CSF N. meningitidis PCR CSF Parechovirus (PCR) CSF S. agalactiae (PCR) CSF S. pneumoniae (PCR) CSF VZV (PCR) Urine Opiates Screen Not Detected Urine Fentanyl Screen Not Detected Ur Barbiturates Screen Not Detected Ur Phencyclidine Scrn Not Detected Ur Amphetamines Screen Not Detected U Benzodiazepines Scrn Not Detected Urine Cocaine Screen Not Detected U Marijuana (THC) Screen Not Detected Ethyl Alcohol COVID-19 (MICHAEL) COVID-19 Clin Com 06/09/22 06/09/22 06/09/22 00:11 00:20 00:20 WBC RBC Hgb Hct MCV MCH MCHC RDW Plt Count MPV Immature Gran % (Auto) Neut % (Auto) Lymph % (Auto) [place] % (Auto) Eos % (Auto) Baso % (Auto) Lymph # (Auto) [place] # (Auto) Eos # (Auto) Baso # (Auto) Abs Immat Gran (auto) Absolute Neuts (auto) Absolute Nucleated RBC Nucleated RBC % (auto) Smear Tech's Comments PT INR D-Dimer High Sensitivty Sodium Potassium Chloride Carbon Dioxide Anion Gap BUN Creatinine Estim Creat Clear Calc Estimated GFR POC Glucose Random Glucose Fasting Glucose Lactic Acid 0.9 Calcium Magnesium Total Bilirubin AST ALT Alkaline Phosphatase Ammonia Troponin I High Sens B-Natriuretic Peptide Total Protein Albumin Urine Color Urine Appearance Urine pH Ur Specific [place] Urine Protein Urine Glucose (UA) Urine Ketones Urine Blood Urine Nitrite Ur Leukocyte Esterase Urine RBC Urine WBC Ur Squamous Epith Cells Urine Bacteria Hyaline Casts CSF Tube Number 2 CSF Volume CSF Appearance CSF Color CSF WBC CSF RBC CSF Lymphocytes CSF Appearance (b) Clear, Colorless CSF Glucose 64 CSF C.neoform/gat PCR Not Detected CSF CMV DNA (PCR) Not Detected CSF Enterovirus (PCR) Not Detected CSF E. coli K1 (PCR) Not Detected CSF H. influenzae (PCR) Not Detected CSF HSV I (PCR) Not Detected CSF HSV II (PCR) Not Detected CSF HHV 6 (PCR) Not Detected CSF L.monocytogenes PCR Not Detected CSF N. meningitidis PCR Not Detected CSF Parechovirus (PCR) Not Detected CSF S. agalactiae (PCR) Not Detected CSF S. pneumoniae (PCR) Not Detected CSF VZV (PCR) Not Detected Urine Opiates Screen Urine Fentanyl Screen Ur Barbiturates Screen Ur Phencyclidine Scrn Ur Amphetamines Screen U Benzodiazepines Scrn Urine Cocaine Screen U Marijuana (THC) Screen Ethyl Alcohol COVID-19 (MICHAEL) COVID-19 Clin Com 06/09/22 06/09/22 06/09/22 00:20 05:43 05:43 WBC 8.0 RBC 4.45 Hgb 12.9 Hct 40.8 MCV 91.7 MCH 29.0 MCHC 31.6 RDW 15.0 Plt Count 170 MPV 12.3 Immature Gran % (Auto) 1.0 H Neut % (Auto) 93.6 H Lymph % (Auto) 4.[address] % (Auto) 0.4 L Eos % (Auto) 0.0 Baso % (Auto) 0.1 Lymph # (Auto) 0.[address] # (Auto) 0.0 L Eos # (Auto) 0.0 Baso # (Auto) 0.0 Abs Immat Gran (auto) 0.08 H Absolute Neuts (auto) 7.4 Absolute Nucleated RBC 0.000 Nucleated RBC % (auto) 0.0 Smear Tech's Comments VERIFIED PT INR D-Dimer High Sensitivty Sodium 140 Potassium 4.4 Chloride 103 Carbon Dioxide 24 Anion Gap 17 BUN 19 H Creatinine 1.15 Estim Creat Clear Calc 69.2 Estimated GFR 46 POC Glucose Random Glucose 153 H Fasting Glucose Lactic Acid Calcium 9.0 Magnesium Total Bilirubin AST ALT Alkaline Phosphatase Ammonia Troponin I High Sens B-Natriuretic Peptide Total Protein Albumin Urine Color Urine Appearance Urine pH Ur Specific [place] Urine Protein Urine Glucose (UA) Urine Ketones Urine Blood Urine Nitrite Ur Leukocyte Esterase Urine RBC Urine WBC Ur Squamous Epith Cells Urine Bacteria Hyaline Casts CSF Tube Number 4 CSF Volume 1.0 CSF Appearance CLEAR CSF Color COLORLESS CSF WBC 1 CSF RBC 0 CSF Lymphocytes 2 CSF Appearance (b) CSF Glucose CSF C.neoform/gat PCR CSF CMV DNA (PCR) CSF Enterovirus (PCR) CSF E. coli K1 (PCR) CSF H. influenzae (PCR) CSF HSV I (PCR) CSF HSV II (PCR) CSF HHV 6 (PCR) CSF L.monocytogenes PCR CSF N. meningitidis PCR CSF Parechovirus (PCR) CSF S. agalactiae (PCR) CSF S. pneumoniae (PCR) CSF VZV (PCR) Urine Opiates Screen Urine Fentanyl Screen Ur Barbiturates Screen Ur Phencyclidine Scrn Ur Amphetamines Screen U Benzodiazepines Scrn Urine Cocaine Screen U Marijuana (THC) Screen Ethyl Alcohol COVID-19 (MICHAEL) COVID-19 Clin Com 06/09/22 06/09/22 06/10/22 08:00 18:47 06:40 WBC RBC Hgb Hct MCV MCH MCHC RDW Plt Count MPV Immature Gran % (Auto) Neut % (Auto) Lymph % (Auto) [place] % (Auto) Eos % (Auto) Baso % (Auto) Lymph # (Auto) [place] # (Auto) Eos # (Auto) Baso # (Auto) Abs Immat Gran (auto) Absolute Neuts (auto) Absolute Nucleated RBC Nucleated RBC % (auto) Smear Tech's Comments PT 31.6 H 33.1 H INR 2.6 H 2.8 H D-Dimer High Sensitivty Sodium Potassium Chloride Carbon Dioxide Anion Gap BUN Creatinine Estim Creat Clear Calc Estimated GFR POC Glucose 168 H Random Glucose Fasting Glucose Lactic Acid Calcium Magnesium Total Bilirubin AST ALT Alkaline Phosphatase Ammonia Troponin I High Sens B-Natriuretic Peptide Total Protein Albumin Urine Color Urine Appearance Urine pH Ur Specific [place] Urine Protein Urine Glucose (UA) Urine Ketones Urine Blood Urine Nitrite Ur Leukocyte Esterase Urine RBC Urine WBC Ur Squamous Epith Cells Urine Bacteria Hyaline Casts CSF Tube Number CSF Volume CSF Appearance CSF Color CSF WBC CSF RBC CSF Lymphocytes CSF Appearance (b) CSF Glucose CSF C.neoform/gat PCR CSF CMV DNA (PCR) CSF Enterovirus (PCR) CSF E. coli K1 (PCR) CSF H. influenzae (PCR) CSF HSV I (PCR) CSF HSV II (PCR) CSF HHV 6 (PCR) CSF L.monocytogenes PCR CSF N. meningitidis PCR CSF Parechovirus (PCR) CSF S. agalactiae (PCR) CSF S. pneumoniae (PCR) CSF VZV (PCR) Urine Opiates Screen Urine Fentanyl Screen Ur Barbiturates Screen Ur Phencyclidine Scrn Ur Amphetamines Screen U Benzodiazepines Scrn Urine Cocaine Screen U Marijuana (THC) Screen Ethyl Alcohol COVID-19 (MICHAEL) COVID-19 Clin Com 06/10/22 06/10/22 06/10/22 06:40 06:40 11:51 WBC 12.2 H RBC 4.42 Hgb 12.7 Hct 40.3 MCV 91.2 MCH 28.7 MCHC 31.5 RDW 15.1 Plt Count 205 MPV 11.8 Immature Gran % (Auto) 0.8 H Neut % (Auto) 87.1 H Lymph % (Auto) 6.[address] % (Auto) 5.6 Eos % (Auto) 0.0 Baso % (Auto) 0.4 Lymph # (Auto) 0.[address] # (Auto) 0.7 Eos # (Auto) 0.0 Baso # (Auto) 0.1 Abs Immat Gran (auto) 0.10 H Absolute Neuts (auto) 10.6 H Absolute Nucleated RBC 0.000 Nucleated RBC % (auto) 0.0 Smear Tech's Comments PT INR D-Dimer High Sensitivty Sodium 141 Potassium 3.8 Chloride 104 Carbon Dioxide 23 Anion Gap 18 BUN 25 H Creatinine 1.59 H Estim Creat Clear Calc 50.0 Estimated GFR 32 POC Glucose 112 Random Glucose Fasting Glucose 143 H Lactic Acid Calcium 9.3 Magnesium Total Bilirubin 0.2 AST 11 ALT 6 Alkaline Phosphatase 86 Ammonia Troponin I High Sens B-Natriuretic Peptide Total Protein 5.9 L Albumin 3.6 Urine Color Urine Appearance Urine pH Ur Specific [place] Urine Protein Urine Glucose (UA) Urine Ketones Urine Blood Urine Nitrite Ur Leukocyte Esterase Urine RBC Urine WBC Ur Squamous Epith Cells Urine Bacteria Hyaline Casts CSF Tube Number CSF Volume CSF Appearance CSF Color CSF WBC CSF RBC CSF Lymphocytes CSF Appearance (b) CSF Glucose CSF C.neoform/gat PCR CSF CMV DNA (PCR) CSF Enterovirus (PCR) CSF E. coli K1 (PCR) CSF H. influenzae (PCR) CSF HSV I (PCR) CSF HSV II (PCR) CSF HHV 6 (PCR) CSF L.monocytogenes PCR CSF N. meningitidis PCR CSF Parechovirus (PCR) CSF S. agalactiae (PCR) CSF S. pneumoniae (PCR) CSF VZV (PCR) Urine Opiates Screen Urine Fentanyl Screen Ur Barbiturates Screen Ur Phencyclidine Scrn Ur Amphetamines Screen U Benzodiazepines Scrn Urine Cocaine Screen U Marijuana (THC) Screen Ethyl Alcohol COVID-19 (MICHAEL) COVID-19 Clin Com Imaging Radiology Impressions: ITS Impressions Chest X-Ray 06/08/22 16:29 IMPRESSION: No acute cardiopulmonary process. Head CT 06/08/22 16:55 IMPRESSION: There is no acute finding here. There has been a left posterior craniotomy from previous exam there is encephalomalacia which is now present and there is some as described decreased attenuation in the adjacent white matter in the region. Although this could represent the patient's postoperative appearance tumor cannot be excluded. As described there is also felt to be new area of decreased attenuation which is just superior to the caudate and adjacent to the caudate on the right adjacent also at the level the anterior aspect of the body of the right lateral ventricle. This could represent white matter ischemic change however underlying lesion again cannot be excluded. Given these findings Recommendation is pre and postcontrast MRI for further evaluation. Head/Neck CTA 06/08/22 21:12 IMPRESSION: 1. No evidence of acute intracranial hemorrhage or edematous territorial infarction. 2. Changes of left parietal craniotomy for resection of a previously demonstrated subjacent extra-axial mass (presumably an underlying meningioma). Compared to most recent available prior exam in 2018, the bulk of the mass along the left posterior vertex has been resected with adjacent encephalomalacia of the left parietal lobe. However, there appears to be increased tumor bulk filling the posterior aspect of the superior sagittal sinus on today's exam. 3. CTA of the head and neck without proximal occlusion or flow-limiting stenosis. 4. Moderate multilevel degenerative spondyloarthropathy of the cervical spine. Mental Status Exam Mental Status Exam Patient Appearance: Appropriate Patient Orientation: Person and Situation Level of Consciousness: Awake and Restless Patient Behavior: Passive Mood Description: Withdrawn Affect Description: Blunted Patient Cognition Impaired: Yes Ability to Follow Directions: Fair Speech Pattern: Clear Hallucinations: Auditory Delusions: Paranoid Ideation Thought Process: Illogical Thought Content: positive for Griffin Judgement: Fair Medications Medications Current Medications Acetaminophen (Acetaminophen 325 Mg Tablet) 650 mg PO Q4H PRN PRN Reason: Headache Atorvastatin Calcium (Atorvastatin Calcium 40 Mg Tablet) 40 mg PO DAILY [facility] Last Admin: 06/10/22 08:45 Dose: 40 mg Escitalopram Oxalate (Escitalopram Oxalate 20 Mg Tablet) 20 mg PO DAILY [facility] Last Admin: 06/10/22 08:45 Dose: 20 mg Levothyroxine Sodium (Levothyroxine Sodium 50 Mcg Tablet) 50 mcg PO DAILY@0600 [facility] Last Admin: 06/10/22 05:07 Dose: Not Given Melatonin (Melatonin 3 Mg Tablet) 6 mg PO BEDTIME PRN PRN Reason: Insomnia Non-Formulary Medication (Trelegy Ellipta) 100 mcg INHALE DAILY [facility] Omeprazole (Omeprazole 20 Mg Capsule.Dr) 20 mg PO DAILY@0630 [facility] Last Admin: 06/10/22 05:07 Dose: Not Given Potassium Chloride (Potassium Chloride Er 10 Meq Capsule.Er) 10 meq PO DAILY [facility] Last Admin: 06/10/22 08:45 Dose: 10 meq Quetiapine Fumarate (Quetiapine Fumarate 25 Mg Tablet) 25 mg PO BEDTIME [facility] Last Admin: 06/09/22 21:20 Dose: 25 mg Senna (Sennosides 8.6 Mg Tablet) 17.2 mg PO BEDTIME PRN PRN Reason: Constipation Sodium Chloride (0.9 % Sodium Chloride Flush 3 Ml Syringe) 3 ml IVFLUSH QSHIFT [facility] Last Admin: 06/10/22 08:45 Dose: 3 ml Torsemide (Torsemide 20 Mg Tablet) 20 mg PO DAILY [facility] Last Admin: 06/10/22 08:45 Dose: 20 mg Warfarin Sodium (Warfarin Sodium 3 Mg Tablet) 3 mg PO DAILY@1800 [facility] Last Admin: 06/09/22 20:58 Dose: Not Given Allergies Allergies Allergy/AdvReac Type Severity Reaction Status Date / Time Iodinated Contrast Media AdvReac Unknown Vomiting Unverified 06/10/22 10:09 [IV DYE, IODINE CONTAINING CONTRAST ] Assessment & Plan Assessment & Plan (1) HTN (hypertension): Status: Acute Code(s): I10 - Essential (primary) hypertension (2) DVT (deep venous thrombosis): Status: Acute Code(s): I82.409 - Acute embolism and thrombosis of unspecified deep veins of unspecified lower extremity (3) Acute alteration in mental status: Status: Acute Code(s): R41.82 - Altered mental status, unspecified (4) Hallucinations: Status: Acute Code(s): R44.3 - Hallucinations, unspecified (5) Weakness: Status: Acute Code(s): R53.1 - Weakness (6) Encephalopathy: Status: Acute Code(s): G93.40 - Encephalopathy, unspecified (7) Delirium: Status: Acute Code(s): R41.0 - Disorientation, unspecified Plan the patient is an elderly female with a past history of dysphoria on Lexapro, admitted into the hospital for pain but now she presents with auditory hallucinations after using opioids. The patient recently had a surgical procedure with her emotion of a meningioma and since then she have had a loose in a shins after the use of corticoids and Depakote and now recently no periods. The patient does not have prior psychiatric history of psychosis and it is clear that the patient have alternating mental status that is a correlation with delirium. Plan 1. Discontinue Seroquel 25 mg p.o. q.h.s.. It is a subtherapeutic dose for delirium. 2. Start Zyprexa 5 mg p.o. q.h.s. for 3 days to target auditory hallucinations. 3. On top of the Zyprexa 5 mg p.o. q.h.s., the patient can have a p.r.n. of Zyprexa 5 mg p.o. b.i.d. p.r.n. Hallucinations. 4. Reassessment as demand I spent ___30___ minutes with the patient and/or on the patient floor today, greater than?50% of which was spent counseling/coordinating care. Guardian/Caregiver educated on: therapeutic strategies Informed Consent: further education needed
[2022-06-10] MEDS: OLANZapine 5 MG TABLET PO ×2 (15:35→21:34)
--- NOTE | 2022-06-10 15:36 | HO.PM.IMPN ---
Subjective Subjective Date of Service: 06/10/22 Interval History: Continues to have visual and auditory hallucination Review of Systems Unobtainable Physical Exam Vital Signs: Vital Signs: Last Vital Signs Temp 98.3 F 06/10/22 10:53 Pulse 93 06/10/22 10:53 Resp 20 06/10/22 10:53 BP 146/66 H 06/10/22 10:53 Pulse Ox 98 06/10/22 10:53 O2 Del Method 06/10/22 10:53 BMI result Body Mass Index 56.2 Const: Other: No acute distress. Appears to be responding to internal stimuli Resp: Other: Clear to auscultation bilaterally no rales rhonchi or wheezes Cardio: Other: No S4; positive S1-S2; no S3 murmurs rubs or gallops GI: Other: Soft nontender nondistended normoactive bowel sounds Extrem: Other: No edema bilaterally Objective Data Active Medications Acetaminophen (Acetaminophen 325 Mg Tablet) 650 mg PO Q4H PRN PRN Reason: Headache Atorvastatin Calcium (Atorvastatin Calcium 40 Mg Tablet) 40 mg PO DAILY [facility] Last Admin: 06/10/22 08:45 Dose: 40 mg Documented By: TALIB Escitalopram Oxalate (Escitalopram Oxalate 20 Mg Tablet) 20 mg PO DAILY [facility] Last Admin: 06/10/22 08:45 Dose: 20 mg Documented By: TALIB Levothyroxine Sodium (Levothyroxine Sodium 50 Mcg Tablet) 50 mcg PO DAILY@0600 [facility] Last Admin: 06/10/22 05:07 Dose: Not Given Documented By: KONG Non-Admin Reason: Patient Refused Melatonin (Melatonin 3 Mg Tablet) 6 mg PO BEDTIME PRN PRN Reason: Insomnia Non-Formulary Medication (Trelegy Ellipta) 100 mcg INHALE DAILY [facility] Olanzapine (Olanzapine 5 Mg Tablet) 5 mg PO BEDTIME [facility] Omeprazole (Omeprazole 20 Mg Capsule.Dr) 20 mg PO DAILY@0630 [facility] Last Admin: 06/10/22 05:07 Dose: Not Given Documented By: KONG Non-Admin Reason: Patient Refused Potassium Chloride (Potassium Chloride Er 10 Meq Capsule.Er) 10 meq PO DAILY [facility] Last Admin: 06/10/22 08:45 Dose: 10 meq Documented By: TALIB Senna (Sennosides 8.6 Mg Tablet) 17.2 mg PO BEDTIME PRN PRN Reason: Constipation Sodium Chloride (0.9 % Sodium Chloride Flush 3 Ml Syringe) 3 ml IVFLUSH QSHIFT [facility] Last Admin: 06/10/22 15:35 Dose: 3 ml Documented By: TALIB Torsemide (Torsemide 20 Mg Tablet) 20 mg PO DAILY [facility] Last Admin: 06/10/22 08:45 Dose: 20 mg Documented By: TALIB Warfarin Sodium (Warfarin Sodium 3 Mg Tablet) 3 mg PO DAILY@1800 [facility] Last Admin: 06/09/22 20:58 Dose: Not Given Documented By: RAKESH Non-Admin Reason: Patient Refused Labs CBC & Chem 7: 06/10/22 06:40 06/10/22 06:40 Labs: Laboratory Results - last 24 hr 06/09/22 06/10/22 06/10/22 18:47 06:40 06:40 MCV 91.2 MCH 28.7 MCHC 31.5 RDW 15.1 Plt Count 205 MPV 11.8 Immature Gran % (Auto) 0.8 H Neut % (Auto) 87.1 H Lymph % (Auto) 6.1 L [place] % (Auto) 5.6 Eos % (Auto) 0.0 Baso % (Auto) 0.4 Lymph # (Auto) 0.7 L [place] # (Auto) 0.7 Eos # (Auto) 0.0 Baso # (Auto) 0.1 Abs Immat Gran (auto) 0.10 H Absolute Neuts (auto) 10.6 H Absolute Nucleated RBC 0.000 Nucleated RBC % (auto) 0.0 PT 31.6 H 33.1 H INR 2.6 H 2.8 H Anion Gap Estim Creat Clear Calc Estimated GFR POC Glucose Fasting Glucose Calcium Total Bilirubin AST ALT Alkaline Phosphatase Total Protein Albumin 06/10/22 06/10/22 06:40 11:51 MCV MCH MCHC RDW Plt Count MPV Immature Gran % (Auto) Neut % (Auto) Lymph % (Auto) [place] % (Auto) Eos % (Auto) Baso % (Auto) Lymph # (Auto) [place] # (Auto) Eos # (Auto) Baso # (Auto) Abs Immat Gran (auto) Absolute Neuts (auto) Absolute Nucleated RBC Nucleated RBC % (auto) PT INR Anion Gap 18 Estim Creat Clear Calc 50.0 Estimated GFR 32 POC Glucose 112 Fasting Glucose 143 H Calcium 9.3 Total Bilirubin 0.2 AST 11 ALT 6 Alkaline Phosphatase 86 Total Protein 5.9 L Albumin 3.6 Microbiology Microbiology Results: Microbiology 06/09/22 00:20 Gram Stain - Final Cerebrospinal Fluid CSF Examination - Final Fluid Description - Final CSF Culture - Preliminary No growth after 1 day 06/09/22 00:11 Blood Culture - Preliminary Blood - Venous No growth after 24 hours. 06/09/22 00:11 Blood Culture - Preliminary Blood - Venous No growth after 24 hours. Assessment and Plan (1) Acute alteration in mental status: Status: Acute (2) Delirium: Status: Acute (3) DVT (deep venous thrombosis): Status: Acute Plan 76-year-old female with a past medical history of hypertension, hyperlipidemia, diabetes, history of DVT on Coumadin, GERD, hypothyroidism, history of meningioma status post resection in February 2022; presented to the hospital today with a chief complaint of confusion.? Audio and visual hallucinations started after taking oxycodone for wrist pain 1. Acute alteration in mental status (audio/visual hallucinations) -CT results noted; records reviewed from [place] -CT scan results uploaded and sent to [facility] for neuro surgical review -will call original surgeon to update -appreciate psychiatric input. Will start Zyprexa and DC Seroquel 2. History of DVT -continue Coumadin with goal INR between 2-3 -daily INR 3. Hypertension -acceptable control on current therapies adjust as indicated 4. Hypothyroidism -continue outpatient supplements Coumadin Full code Requires ongoing hospitalization to complete workup of alteration in mental status Quality Stroke Does the patient have a stroke diagnosis?: No VTE Prior VTE?: No VTE Risk Level:: Medical - moderate - high VTE Device Contraindication: N/A - Device Ordered VTE Drug Contraindication: Treatment Not Indicated
[2022-06-10 16:00] VITALS: BP 135/60; PULSE 93; RESP 20; TEMP 36.8; O2SAT 94
--- NOTE | 2022-06-10 17:13 | P.CNPS_ITS ---
History of Present Illness Chief Complaint: AMS HPI Past Psychiatric History: Never admitted to the hospital as per the records she has been on Lexapro due to depression. [facility] Family History: Denies Diagnostics Vital Signs (24Hr): Vital Signs - 24 hr 06/09/22 21:47 06/10/22 00:00 06/10/22 03:38 Temperature 98.7 F 98.7 F 98.2 F Pulse Rate 95 104 H 97 Respiratory Rate 18 18 20 Blood Pressure 142/70 H 175/87 H 141/65 H Pulse Oximetry 94 94 93 Oxygen Delivery Method Room Air Room Air Room Air 06/10/22 07:57 06/10/22 10:53 06/10/22 16:00 Temperature 98.2 F 98.3 F 98.2 F Pulse Rate 90 93 93 Respiratory Rate 20 20 20 Blood Pressure 138/64 146/66 H 135/60 Pulse Oximetry 96 98 94 Oxygen Delivery Method Room Air Room Air Room Air BMI result Body Mass Index 56.2 Labs Results: 06/10/22 06:40 06/10/22 06:40 Labs: Laboratory Results - last 48 hr 06/08/22 06/08/22 06/08/22 17:54 17:54 17:54 WBC 10.2 RBC 4.43 Hgb 12.5 Hct 40.0 MCV 90.3 MCH 28.2 MCHC 31.3 RDW 15.1 Plt Count 196 MPV 11.7 Immature Gran % (Auto) 0.8 H Neut % (Auto) 80.9 H Lymph % (Auto) 9.9 L [place] % (Auto) 6.6 Eos % (Auto) 1.3 Baso % (Auto) 0.5 Lymph # (Auto) 1.0 L [place] # (Auto) 0.7 Eos # (Auto) 0.1 Baso # (Auto) 0.1 Abs Immat Gran (auto) 0.08 H Absolute Neuts (auto) 8.2 Absolute Nucleated RBC 0.000 Nucleated RBC % (auto) 0.0 Smear Tech's Comments PT INR D-Dimer High Sensitivty Sodium 143 Potassium 4.1 Chloride 104 Carbon Dioxide 25 Anion Gap 18 BUN 20 H Creatinine 1.33 Estim Creat Clear Calc 59.8 Estimated GFR 39 POC Glucose Random Glucose 107 Fasting Glucose Lactic Acid Calcium 9.1 Magnesium 1.9 Total Bilirubin 0.4 AST 11 ALT 6 Alkaline Phosphatase 90 Ammonia Troponin I High Sens 14.7 B-Natriuretic Peptide Total Protein 5.5 L Albumin 3.4 L Urine Color Urine Appearance Urine pH Ur Specific [place] Urine Protein Urine Glucose (UA) Urine Ketones Urine Blood Urine Nitrite Ur Leukocyte Esterase Urine RBC Urine WBC Ur Squamous Epith Cells Urine Bacteria Hyaline Casts CSF Tube Number CSF Volume CSF Appearance CSF Color CSF WBC CSF RBC CSF Lymphocytes CSF Appearance (b) CSF Glucose CSF C.neoform/gat PCR CSF CMV DNA (PCR) CSF Enterovirus (PCR) CSF E. coli K1 (PCR) CSF H. influenzae (PCR) CSF HSV I (PCR) CSF HSV II (PCR) CSF HHV 6 (PCR) CSF L.monocytogenes PCR CSF N. meningitidis PCR CSF Parechovirus (PCR) CSF S. agalactiae (PCR) CSF S. pneumoniae (PCR) CSF VZV (PCR) Urine Opiates Screen Urine Fentanyl Screen Ur Barbiturates Screen Ur Phencyclidine Scrn Ur Amphetamines Screen U Benzodiazepines Scrn Urine Cocaine Screen U Marijuana (THC) Screen Ethyl Alcohol < 10 COVID-19 (MICHAEL) COVID-19 Clin Com 06/08/22 06/08/22 06/08/22 17:54 17:54 17:54 WBC RBC Hgb Hct MCV MCH MCHC RDW Plt Count MPV Immature Gran % (Auto) Neut % (Auto) Lymph % (Auto) [place] % (Auto) Eos % (Auto) Baso % (Auto) Lymph # (Auto) [place] # (Auto) Eos # (Auto) Baso # (Auto) Abs Immat Gran (auto) Absolute Neuts (auto) Absolute Nucleated RBC Nucleated RBC % (auto) Smear Tech's Comments PT INR D-Dimer High Sensitivty 163 Sodium Potassium Chloride Carbon Dioxide Anion Gap BUN Creatinine Estim Creat Clear Calc Estimated GFR POC Glucose Random Glucose Fasting Glucose Lactic Acid Calcium Magnesium Total Bilirubin AST ALT Alkaline Phosphatase Ammonia 17 Troponin I High Sens B-Natriuretic Peptide Total Protein Albumin Urine Color Urine Appearance Urine pH Ur Specific [place] Urine Protein Urine Glucose (UA) Urine Ketones Urine Blood Urine Nitrite Ur Leukocyte Esterase Urine RBC Urine WBC Ur Squamous Epith Cells Urine Bacteria Hyaline Casts CSF Tube Number CSF Volume CSF Appearance CSF Color CSF WBC CSF RBC CSF Lymphocytes CSF Appearance (b) CSF Glucose CSF C.neoform/gat PCR CSF CMV DNA (PCR) CSF Enterovirus (PCR) CSF E. coli K1 (PCR) CSF H. influenzae (PCR) CSF HSV I (PCR) CSF HSV II (PCR) CSF HHV 6 (PCR) CSF L.monocytogenes PCR CSF N. meningitidis PCR CSF Parechovirus (PCR) CSF S. agalactiae (PCR) CSF S. pneumoniae (PCR) CSF VZV (PCR) Urine Opiates Screen Urine Fentanyl Screen Ur Barbiturates Screen Ur Phencyclidine Scrn Ur Amphetamines Screen U Benzodiazepines Scrn Urine Cocaine Screen U Marijuana (THC) Screen Ethyl Alcohol COVID-19 (MICHAEL) Negative COVID-19 Clin Com See Note 06/08/22 06/08/22 06/09/22 18:31 18:31 00:11 WBC RBC Hgb Hct MCV MCH MCHC RDW Plt Count MPV Immature Gran % (Auto) Neut % (Auto) Lymph % (Auto) [place] % (Auto) Eos % (Auto) Baso % (Auto) Lymph # (Auto) [place] # (Auto) Eos # (Auto) Baso # (Auto) Abs Immat Gran (auto) Absolute Neuts (auto) Absolute Nucleated RBC Nucleated RBC % (auto) Smear Tech's Comments PT INR D-Dimer High Sensitivty Sodium Potassium Chloride Carbon Dioxide Anion Gap BUN Creatinine Estim Creat Clear Calc Estimated GFR POC Glucose Random Glucose Fasting Glucose Lactic Acid Calcium Magnesium Total Bilirubin AST ALT Alkaline Phosphatase Ammonia Troponin I High Sens 14.2 B-Natriuretic Peptide 83 Total Protein Albumin Urine Color Yellow Urine Appearance Clear Urine pH 5.5 Ur Specific [place] 1.015 Urine Protein Trace Urine Glucose (UA) Negative Urine Ketones Negative Urine Blood Moderate (2+) H Urine Nitrite Negative Ur Leukocyte Esterase Trace H Urine RBC >20 H Urine WBC 0-5 Ur Squamous Epith Cells 6-10 Urine Bacteria None Seen Hyaline Casts 6-10 CSF Tube Number CSF Volume CSF Appearance CSF Color CSF WBC CSF RBC CSF Lymphocytes CSF Appearance (b) CSF Glucose CSF C.neoform/gat PCR CSF CMV DNA (PCR) CSF Enterovirus (PCR) CSF E. coli K1 (PCR) CSF H. influenzae (PCR) CSF HSV I (PCR) CSF HSV II (PCR) CSF HHV 6 (PCR) CSF L.monocytogenes PCR CSF N. meningitidis PCR CSF Parechovirus (PCR) CSF S. agalactiae (PCR) CSF S. pneumoniae (PCR) CSF VZV (PCR) Urine Opiates Screen Not Detected Urine Fentanyl Screen Not Detected Ur Barbiturates Screen Not Detected Ur Phencyclidine Scrn Not Detected Ur Amphetamines Screen Not Detected U Benzodiazepines Scrn Not Detected Urine Cocaine Screen Not Detected U Marijuana (THC) Screen Not Detected Ethyl Alcohol COVID-19 (MICHAEL) COVID-19 [employer] Com 06/09/22 06/09/22 06/09/22 00:11 00:20 00:20 WBC RBC Hgb Hct MCV MCH MCHC RDW Plt Count MPV Immature Gran % (Auto) Neut % (Auto) Lymph % (Auto) [place] % (Auto) Eos % (Auto) Baso % (Auto) Lymph # (Auto) [place] # (Auto) Eos # (Auto) Baso # (Auto) Abs Immat Gran (auto) Absolute Neuts (auto) Absolute Nucleated RBC Nucleated RBC % (auto) Smear Tech's Comments PT INR D-Dimer High Sensitivty Sodium Potassium Chloride Carbon Dioxide Anion Gap BUN Creatinine Estim Creat Clear Calc Estimated GFR POC Glucose Random Glucose Fasting Glucose Lactic Acid 0.9 Calcium Magnesium Total Bilirubin AST ALT Alkaline Phosphatase Ammonia Troponin I High Sens B-Natriuretic Peptide Total Protein Albumin Urine Color Urine Appearance Urine pH Ur Specific [place] Urine Protein Urine Glucose (UA) Urine Ketones Urine Blood Urine Nitrite Ur Leukocyte Esterase Urine RBC Urine WBC Ur Squamous Epith Cells Urine Bacteria Hyaline Casts CSF Tube Number 2 CSF Volume CSF Appearance CSF Color CSF WBC CSF RBC CSF Lymphocytes CSF Appearance (b) Clear, Colorless CSF Glucose 64 CSF C.neoform/gat PCR Not Detected CSF CMV DNA (PCR) Not Detected CSF Enterovirus (PCR) Not Detected CSF E. coli K1 (PCR) Not Detected CSF H. influenzae (PCR) Not Detected CSF HSV I (PCR) Not Detected CSF HSV II (PCR) Not Detected CSF HHV 6 (PCR) Not Detected CSF L.monocytogenes PCR Not Detected CSF N. meningitidis PCR Not Detected CSF Parechovirus (PCR) Not Detected CSF S. agalactiae (PCR) Not Detected CSF S. pneumoniae (PCR) Not Detected CSF VZV (PCR) Not Detected Urine Opiates Screen Urine Fentanyl Screen Ur Barbiturates Screen Ur Phencyclidine Scrn Ur Amphetamines Screen U Benzodiazepines Scrn Urine Cocaine Screen U Marijuana (THC) Screen Ethyl Alcohol COVID-19 (MICHAEL) COVID-19 [employer] Com 06/09/22 06/09/22 06/09/22 00:20 05:43 05:43 WBC 8.0 RBC 4.45 Hgb 12.9 Hct 40.8 MCV 91.7 MCH 29.0 MCHC 31.6 RDW 15.0 Plt Count 170 MPV 12.3 Immature Gran % (Auto) 1.0 H Neut % (Auto) 93.6 H Lymph % (Auto) 4.9 L [place] % (Auto) 0.4 L Eos % (Auto) 0.0 Baso % (Auto) 0.1 Lymph # (Auto) 0.4 L [place] # (Auto) 0.0 L Eos # (Auto) 0.0 Baso # (Auto) 0.0 Abs Immat Gran (auto) 0.08 H Absolute Neuts (auto) 7.4 Absolute Nucleated RBC 0.000 Nucleated RBC % (auto) 0.0 Smear Tech's Comments VERIFIED PT INR D-Dimer High Sensitivty Sodium 140 Potassium 4.4 Chloride 103 Carbon Dioxide 24 Anion Gap 17 BUN 19 H Creatinine 1.15 Estim Creat Clear Calc 69.2 Estimated GFR 46 POC Glucose Random Glucose 153 H Fasting Glucose Lactic Acid Calcium 9.0 Magnesium Total Bilirubin AST ALT Alkaline Phosphatase Ammonia Troponin I High Sens B-Natriuretic Peptide Total Protein Albumin Urine Color Urine Appearance Urine pH Ur Specific [place] Urine Protein Urine Glucose (UA) Urine Ketones Urine Blood Urine Nitrite Ur Leukocyte Esterase Urine RBC Urine WBC Ur Squamous Epith Cells Urine Bacteria Hyaline Casts CSF Tube Number 4 CSF Volume 1.0 CSF Appearance CLEAR CSF Color COLORLESS CSF WBC 1 CSF RBC 0 CSF Lymphocytes 2 CSF Appearance (b) CSF Glucose CSF C.neoform/gat PCR CSF CMV DNA (PCR) CSF Enterovirus (PCR) CSF E. coli K1 (PCR) CSF H. influenzae (PCR) CSF HSV I (PCR) CSF HSV II (PCR) CSF HHV 6 (PCR) CSF L.monocytogenes PCR CSF N. meningitidis PCR CSF Parechovirus (PCR) CSF S. agalactiae (PCR) CSF S. pneumoniae (PCR) CSF VZV (PCR) Urine Opiates Screen Urine Fentanyl Screen Ur Barbiturates Screen Ur Phencyclidine Scrn Ur Amphetamines Screen U Benzodiazepines Scrn Urine Cocaine Screen U Marijuana (THC) Screen Ethyl Alcohol COVID-19 (MICHAEL) COVID-19 Clin Com 06/09/22 06/09/22 06/10/22 08:00 18:47 06:40 WBC RBC Hgb Hct MCV MCH MCHC RDW Plt Count MPV Immature Gran % (Auto) Neut % (Auto) Lymph % (Auto) [place] % (Auto) Eos % (Auto) Baso % (Auto) Lymph # (Auto) [place] # (Auto) Eos # (Auto) Baso # (Auto) Abs Immat Gran (auto) Absolute Neuts (auto) Absolute Nucleated RBC Nucleated RBC % (auto) Smear Tech's Comments PT 31.6 H 33.1 H INR 2.6 H 2.8 H D-Dimer High Sensitivty Sodium Potassium Chloride Carbon Dioxide Anion Gap BUN Creatinine Estim Creat Clear Calc Estimated GFR POC Glucose 168 H Random Glucose Fasting Glucose Lactic Acid Calcium Magnesium Total Bilirubin AST ALT Alkaline Phosphatase Ammonia Troponin I High Sens B-Natriuretic Peptide Total Protein Albumin Urine Color Urine Appearance Urine pH Ur Specific [place] Urine Protein Urine Glucose (UA) Urine Ketones Urine Blood Urine Nitrite Ur Leukocyte Esterase Urine RBC Urine WBC Ur Squamous Epith Cells Urine Bacteria Hyaline Casts CSF Tube Number CSF Volume CSF Appearance CSF Color CSF WBC CSF RBC CSF Lymphocytes CSF Appearance (b) CSF Glucose CSF C.neoform/gat PCR CSF CMV DNA (PCR) CSF Enterovirus (PCR) CSF E. coli K1 (PCR) CSF H. influenzae (PCR) CSF HSV I (PCR) CSF HSV II (PCR) CSF HHV 6 (PCR) CSF L.monocytogenes PCR CSF N. meningitidis PCR CSF Parechovirus (PCR) CSF S. agalactiae (PCR) CSF S. pneumoniae (PCR) CSF VZV (PCR) Urine Opiates Screen Urine Fentanyl Screen Ur Barbiturates Screen Ur Phencyclidine Scrn Ur Amphetamines Screen U Benzodiazepines Scrn Urine Cocaine Screen U Marijuana (THC) Screen Ethyl Alcohol COVID-19 (MICHAEL) COVID-19 Clin Com 06/10/22 06/10/22 06/10/22 06:40 06:40 11:51 WBC 12.2 H RBC 4.42 Hgb 12.7 Hct 40.3 MCV 91.2 MCH 28.7 MCHC 31.5 RDW 15.1 Plt Count 205 MPV 11.8 Immature Gran % (Auto) 0.8 H Neut % (Auto) 87.1 H Lymph % (Auto) 6.1 L [place] % (Auto) 5.6 Eos % (Auto) 0.0 Baso % (Auto) 0.4 Lymph # (Auto) 0.7 L [place] # (Auto) 0.7 Eos # (Auto) 0.0 Baso # (Auto) 0.1 Abs Immat Gran (auto) 0.10 H Absolute Neuts (auto) 10.6 H Absolute Nucleated RBC 0.000 Nucleated RBC % (auto) 0.0 Smear Tech's Comments PT INR D-Dimer High Sensitivty Sodium 141 Potassium 3.8 Chloride 104 Carbon Dioxide 23 Anion Gap 18 BUN 25 H Creatinine 1.59 H Estim Creat Clear Calc 50.0 Estimated GFR 32 POC Glucose 112 Random Glucose Fasting Glucose 143 H Lactic Acid Calcium 9.3 Magnesium Total Bilirubin 0.2 AST 11 ALT 6 Alkaline Phosphatase 86 Ammonia Troponin I High Sens B-Natriuretic Peptide Total Protein 5.9 L Albumin 3.6 Urine Color Urine Appearance Urine pH Ur Specific [place] Urine Protein Urine Glucose (UA) Urine Ketones Urine Blood Urine Nitrite Ur Leukocyte Esterase Urine RBC Urine WBC Ur Squamous Epith Cells Urine Bacteria Hyaline Casts CSF Tube Number CSF Volume CSF Appearance CSF Color CSF WBC CSF RBC CSF Lymphocytes CSF Appearance (b) CSF Glucose CSF C.neoform/gat PCR CSF CMV DNA (PCR) CSF Enterovirus (PCR) CSF E. coli K1 (PCR) CSF H. influenzae (PCR) CSF HSV I (PCR) CSF HSV II (PCR) CSF HHV 6 (PCR) CSF L.monocytogenes PCR CSF N. meningitidis PCR CSF Parechovirus (PCR) CSF S. agalactiae (PCR) CSF S. pneumoniae (PCR) CSF VZV (PCR) Urine Opiates Screen Urine Fentanyl Screen Ur Barbiturates Screen Ur Phencyclidine Scrn Ur Amphetamines Screen U Benzodiazepines Scrn Urine Cocaine Screen U Marijuana (THC) Screen Ethyl Alcohol COVID-19 (MICHAEL) COVID-19 Clin Com Imaging Radiology Impressions: ITS Impressions Chest X-Ray 06/08/22 16:29 IMPRESSION: No acute cardiopulmonary process. Head CT 06/08/22 16:55 IMPRESSION: There is no acute finding here. There has been a left posterior craniotomy from previous exam there is encephalomalacia which is now present and there is some as described decreased attenuation in the adjacent white matter in the region. Although this could represent the patient's postoperative appearance tumor cannot be excluded. As described there is also felt to be new area of decreased attenuation which is just superior to the caudate and adjacent to the caudate on the right adjacent also at the level the anterior aspect of the body of the right lateral ventricle. This could represent white matter ischemic change however underlying lesion again cannot be excluded. Given these findings Recommendation is pre and postcontrast MRI for further evaluation. Head/Neck CTA 06/08/22 21:12 IMPRESSION: 1. No evidence of acute intracranial hemorrhage or edematous territorial infarction. 2. Changes of left parietal craniotomy for resection of a previously demonstrated subjacent extra-axial mass (presumably an underlying meningioma). Compared to most recent available prior exam in 2018, the bulk of the mass along the left posterior vertex has been resected with adjacent encephalomalacia of the left parietal lobe. However, there appears to be increased tumor bulk filling the posterior aspect of the superior sagittal sinus on today's exam. 3. CTA of the head and neck without proximal occlusion or flow-limiting stenosis. 4. Moderate multilevel degenerative spondyloarthropathy of the cervical spine. Medications Medications Current Medications Acetaminophen (Acetaminophen 325 Mg Tablet) 650 mg PO Q4H PRN PRN Reason: Headache Atorvastatin Calcium (Atorvastatin Calcium 40 Mg Tablet) 40 mg PO DAILY [facility] Last Admin: 06/10/22 08:45 Dose: 40 mg Escitalopram Oxalate (Escitalopram Oxalate 20 Mg Tablet) 20 mg PO DAILY [facility] Last Admin: 06/10/22 08:45 Dose: 20 mg Levothyroxine Sodium (Levothyroxine Sodium 50 Mcg Tablet) 50 mcg PO DAILY@0600 [facility] Last Admin: 06/10/22 05:07 Dose: Not Given Melatonin (Melatonin 3 Mg Tablet) 6 mg PO BEDTIME PRN PRN Reason: Insomnia Non-Formulary Medication (Trelegy Ellipta) 100 mcg INHALE DAILY [facility] Olanzapine (Olanzapine 5 Mg Tablet) 5 mg PO BEDTIME [facility] Omeprazole (Omeprazole 20 Mg Capsule.Dr) 20 mg PO DAILY@0630 [facility] Last Admin: 06/10/22 05:07 Dose: Not Given Potassium Chloride (Potassium Chloride Er 10 Meq Capsule.Er) 10 meq PO DAILY [facility] Last Admin: 06/10/22 08:45 Dose: 10 meq Senna (Sennosides 8.6 Mg Tablet) 17.2 mg PO BEDTIME PRN PRN Reason: Constipation Sodium Chloride (0.9 % Sodium Chloride Flush 3 Ml Syringe) 3 ml IVFLUSH QSHIFT [facility] Last Admin: 06/10/22 15:35 Dose: 3 ml Torsemide (Torsemide 20 Mg Tablet) 20 mg PO DAILY [facility] Last Admin: 06/10/22 08:45 Dose: 20 mg Warfarin Sodium (Warfarin Sodium 3 Mg Tablet) 3 mg PO DAILY@1800 [facility] Last Admin: 06/09/22 20:58 Dose: Not Given Allergies Allergies Allergy/AdvReac Type Severity Reaction Status Date / Time Iodinated Contrast Media AdvReac Unknown Vomiting Unverified 06/10/22 10:09 [IV DYE, IODINE CONTAINING CONTRAST ] Assessment & Plan I spent minutes with the patient and/or on the patient floor today, greater than?50% of which was spent counseling/coordinating care.
[2022-06-10] MEDS: Warfarin Sodium 3 MG TABLET PO (17:16)
[2022-06-10 19:49] VITALS: BP 158/76; PULSE 112; RESP 18; TEMP 37.1; O2SAT 98
[2022-06-11 00:11] VITALS: BP 143/70; PULSE 101; RESP 19; TEMP 37.1; O2SAT 98
[2022-06-11] MEDS: Melatonin 3 MG TABLET 6 MG PO (00:13)
[2022-06-11] MEDS: 0.9 % Sodium Chloride Flush 3 ML SYRINGE IVFLUSH ×3 (00:13→17:48)
[2022-06-11 04:00] VITALS: BP 143/65; PULSE 94; RESP 19; TEMP 36.9; O2SAT 91
[2022-06-11] MEDS: Levothyroxine Sodium 50 MCG TABLET PO (05:51)
[2022-06-11] MEDS: Omeprazole 20 MG CAPSULE.DR PO (05:51)
[2022-06-11 06:55] LABS: MANUAL DIFF FLAG NO
[2022-06-11 07:02] LABS: Basophils Absolute Auto 0.1 X10*3/uL (0.0-0.2); Basophils Percent Auto 0.7 % (0-2); Eosinophils Percent Auto 0.4 % (0-4); Hematocrit 39.8 % (37.0-47.0); Hemoglobin 12.4 g/dl (12.0-16.0); Imm Gran Abs Auto 0.08 X10*3/uL (0.00-0.03); Imm Gran Pct Auto 0.8 % (0.0-0.4); Lymphocytes Absolute Auto 1.1 X10*3/uL (1.2-4.9); Lymphocytes Percent Auto 10.3 % (20-40); Mean Corpuscular HGB Conc 31.2 g/dl (31.0-35.0); Mean Corpuscular Hemoglobin 28.4 pg (27.0-33.0); Mean Corpuscular Volume 91.3 fL (80.0-98.0); Mean Platelet Volume 11.7 fL (9.4-12.3); Monocytes Absolute Auto 0.7 X10*3/uL (0.1-1.2); Monocytes Percent Auto 7.1 % (2-11); Neutrophils Absolute Auto 8.2 x10*3/uL (2.0-8.3); Neutrophils Percent Auto 80.7 % (45-73); Platelet Count 217 X10*3/uL (160-400); Red Blood Count 4.36 X10*6/uL (4.20-5.50); Red Cell Distribution Width 15.2 % (11.0-16.0); White Blood Count 10.2 X10*3/uL (4.8-10.8)
[2022-06-11 07:09] LABS: INTERNATIONAL NORM RATIO 3.1 (0.9-1.1); Prothrombin Time 37.3 SEC (10.0-13.1)
[2022-06-11 07:30] VITALS: BP 141/69; PULSE 95; RESP 18; TEMP 36.8; O2SAT 95
[2022-06-11 08:47] LABS: Alanine Aminotransferase 7 U/L (0-31); Albumin Level 3.8 g/dL (3.5-5.0); Alkaline Phosphatase 89 U/L (39-117); Anion Gap 20 (12-20); Aspartate Amino Transferase 12 U/L (5-31); Bilirubin Total 0.5 mg/dL (0.0-1.0); Blood Urea Nitrogen 24 mg/dL (9-16); Calcium 9.2 mg/dL (8.4-10.2); Carbon Dioxide 23 mmol/L (22-29); Chloride 104 mmol/L (96-108); Creatinine Clr Calc Pharmacy 51.3; Estimated Glomerular Filt Rate 33; Glucose Fasting 121 mg/dL (60-99); Potassium 3.6 mmol/L (3.3-5.1); Sodium 143 mmol/L (135-145); Total Protein 5.9 g/dL (6.5-8.0)
[2022-06-11] MEDS: Torsemide 20 MG TABLET PO (09:59)
[2022-06-11] MEDS: Atorvastatin Calcium 40 MG TABLET PO (09:59)
[2022-06-11] MEDS: OLANZapine 5 MG TABLET PO (09:59)
[2022-06-11] MEDS: Escitalopram Oxalate 20 MG TABLET PO (10:00)
[2022-06-11 11:15] VITALS: BP 137/61; PULSE 94; RESP 18; TEMP 37.1; O2SAT 93
--- NOTE | 2022-06-11 11:36 | P.PNIM_ITS ---
Subjective Subjective Date of Service: 06/11/22 Interval History: Continues to experience auditory and visual hallucinations. Zyprexa with minimal effect Physical Exam Vital Signs: Vital Signs: Last Vital Signs Temp 98.8 F 06/11/22 11:15 Pulse 94 06/11/22 11:15 Resp 18 06/11/22 11:15 BP 137/61 06/11/22 11:15 Pulse Ox 93 06/11/22 11:15 O2 Del Method 06/11/22 11:15 BMI result Body Mass Index 56.2 Const: Other: No acute distress. Appears to be responding to internal stimuli Resp: Other: Clear to auscultation bilaterally no rales rhonchi or wheezes Cardio: Other: No S4; positive S1-S2; no S3 murmurs rubs or gallops GI: Other: Soft nontender nondistended normoactive bowel sounds Extrem: Other: No edema bilaterally Objective Data Active Medications Acetaminophen (Acetaminophen 325 Mg Tablet) 650 mg PO Q4H PRN PRN Reason: Headache Atorvastatin Calcium (Atorvastatin Calcium 40 Mg Tablet) 40 mg PO DAILY [facility] Last Admin: 06/11/22 09:59 Dose: 40 mg Documented By: JOHN Escitalopram Oxalate (Escitalopram Oxalate 20 Mg Tablet) 20 mg PO DAILY [facility] Last Admin: 06/11/22 10:00 Dose: 20 mg Documented By: JOHN Levothyroxine Sodium (Levothyroxine Sodium 50 Mcg Tablet) 50 mcg PO DAILY@0600 [facility] Last Admin: 06/11/22 05:51 Dose: 50 mcg Documented By: ZHENG Melatonin (Melatonin 3 Mg Tablet) 6 mg PO BEDTIME PRN PRN Reason: Insomnia Last Admin: 06/11/22 00:13 Dose: 6 mg Documented By: ZHENG Non-Formulary Medication (Trelegy Ellipta) 100 mcg INHALE DAILY [facility] Olanzapine (Olanzapine 5 Mg Tablet) 5 mg PO BEDTIME [facility] Last Admin: 06/10/22 21:34 Dose: 5 mg Documented By: FELECIA Omeprazole (Omeprazole 20 Mg Capsule.Dr) 20 mg PO DAILY@0630 [facility] Last Admin: 06/11/22 05:51 Dose: 20 mg Documented By: ZHENG Potassium Chloride (Potassium Chloride Er 10 Meq Capsule.Er) 10 meq PO DAILY [facility] Last Admin: 06/11/22 09:59 Dose: 10 meq Documented By: JOHN Senna (Sennosides 8.6 Mg Tablet) 17.2 mg PO BEDTIME PRN PRN Reason: Constipation Sodium Chloride (0.9 % Sodium Chloride Flush 3 Ml Syringe) 3 ml IVFLUSH QSHIFT [facility] Last Admin: 06/11/22 10:00 Dose: 3 ml Documented By: JOHN Torsemide (Torsemide 20 Mg Tablet) 20 mg PO DAILY [facility] Last Admin: 06/11/22 09:59 Dose: 20 mg Documented By: JOHN Warfarin Sodium (Warfarin Sodium 3 Mg Tablet) 3 mg PO DAILY@1800 [facility] Last Admin: 06/10/22 17:16 Dose: 3 mg Documented By: TALIB Labs CBC & Chem 7: 06/11/22 06:33 06/11/22 06:33 Labs: Laboratory Results - last 24 hr 06/10/22 06/11/22 06/11/22 11:51 06:33 06:33 MCV 91.3 MCH 28.4 MCHC 31.2 RDW 15.2 Plt Count 217 MPV 11.7 Immature Gran % (Auto) 0.8 H Neut % (Auto) 80.7 H Lymph % (Auto) 10.3 L [place] % (Auto) 7.1 Eos % (Auto) 0.4 Baso % (Auto) 0.7 Lymph # (Auto) 1.1 L [place] # (Auto) 0.7 Eos # (Auto) 0.0 Baso # (Auto) 0.1 Abs Immat Gran (auto) 0.08 H Absolute Neuts (auto) 8.2 Absolute Nucleated RBC 0.000 Nucleated RBC % (auto) 0.0 PT 37.3 H INR 3.1 H Anion Gap Estim Creat Clear Calc Estimated GFR POC Glucose 112 Fasting Glucose Calcium Total Bilirubin AST ALT Alkaline Phosphatase Total Protein Albumin 06/11/22 06:33 MCV MCH MCHC RDW Plt Count MPV Immature Gran % (Auto) Neut % (Auto) Lymph % (Auto) [place] % (Auto) Eos % (Auto) Baso % (Auto) Lymph # (Auto) [place] # (Auto) Eos # (Auto) Baso # (Auto) Abs Immat Gran (auto) Absolute Neuts (auto) Absolute Nucleated RBC Nucleated RBC % (auto) PT INR Anion Gap 20 Estim Creat Clear Calc 51.3 Estimated GFR 33 POC Glucose Fasting Glucose 121 H Calcium 9.2 Total Bilirubin 0.5 AST 12 ALT 7 Alkaline Phosphatase 89 Total Protein 5.9 L Albumin 3.8 Microbiology Microbiology Results: Microbiology 06/09/22 00:20 Gram Stain - Final Cerebrospinal Fluid CSF Examination - Final Fluid Description - Final CSF Culture - Preliminary No growth after 2 days 06/09/22 00:11 Blood Culture - Preliminary Blood - Venous No growth after 48 hours. 06/09/22 00:11 Blood Culture - Preliminary Blood - Venous No growth after 48 hours. Assessment and Plan (1) Acute alteration in mental status: Status: Acute (2) Delirium: Status: Acute (3) DVT (deep venous thrombosis): Status: Acute Plan 76-year-old female with a past medical history of hypertension, hyperlipidemia, diabetes, history of DVT on Coumadin, GERD, hypothyroidism, history of meningioma status post resection in February 2022; presented to the hospital today with a chief complaint of confusion.? Audio and visual hallucinations started after taking oxycodone for wrist pain 1. Acute alteration in mental status (audio/visual hallucinations) - Zyprexa ineffective. Will consult psych for possible transfer to [facility] psych you -appreciate psychiatric input.? 2. History of DVT -continue Coumadin with goal INR between 2-3 -daily INR 3. Hypertension -acceptable control on current therapies adjust as indicated 4. Hypothyroidism -continue outpatient supplements Coumadin Full code Requires ongoing hospitalization to complete workup of alteration in mental status Quality Stroke Does the patient have a stroke diagnosis?: No VTE Prior VTE?: No VTE Risk Level:: Medical - moderate - high VTE Device Contraindication: N/A - Device Ordered VTE Drug Contraindication: Treatment Not Indicated
[2022-06-11] MEDS: Haloperidol Lactate 5 MG/ML VIAL 2.5 MG IVPUSH (13:48)
--- NOTE | 2022-06-11 16:20 | P.PNPSI_ITS ---
Subjective Subjective Date of Service: 06/11/22 Reason For Visit: AMS Interim History: Patient was seen and discussed Dr. servin. chart was reviewed. Patient was difficult to interview. Her daughter who was at the bedside provided most of the history. The patient was confused, she was disoriented, she was picking at the bed sheets and looking around the room likely responding to visual hallucinations. Zyprexa was not effective for help with her agitation or sleep last night. This afternoon she received Haldol 2.5 mg IV which caused worse agitation. Overnight she received Valium. Patient's daughter reports that she had her surgery in mid April for meningioma. She started developing hallucinations after that and went to rehab. She was on steroids and Depakote. After those were discontinued hallucinations stopped. She reports she drove her back from [place] So that she and her sister could take care of their mom. Patient then fractured her wrist and was put on Oxycodone but has been off of that for the past 5 days. Mental Status Exam Mental Status Exam Narrative: Hard of hearing Patient Appearance: Perspiring Level of Consciousness: Disoriented and Restless Patient Behavior: Suspicious, Restless, Anxious, Distractible and Confused Mood Description: Suspicious, Flat and Nervous Affect Description: Apprehensive Patient Cognition Impaired: Yes Ability to Follow Directions: Poor Speech Pattern: Impoverished, Difficulty Finding Words, Mumbled, Cofabulation and Long Pauses Memory Description: Remote Impaired, Immediate Impaired and Shipboard Intelligence Analyst Impaired Hallucinations: Visual Delusions: Paranoid Ideation (food poisoned) Perceptual Disturbances: Hallucinations and Illusions Thought Process: Disoriented, Incoherent and Illogical Thought Content: positive for Disoriented Abnormal Motor Activity Signs and Symptoms: Hyperactivity and Restlessness Judgement: Poor Diagnostics Vital Signs (24Hr): Vital Signs - 24 hr 06/10/22 19:49 06/11/22 00:11 06/11/22 04:00 Temperature 98.7 F 98.7 F 98.4 F Pulse Rate 112 H 101 H 94 Respiratory Rate 18 19 19 Blood Pressure 158/76 H 143/70 H 143/65 H Pulse Oximetry 98 98 91 L Oxygen Delivery Method Room Air Room Air Room Air 06/11/22 07:30 06/11/22 11:15 Temperature 98.3 F 98.8 F Pulse Rate 95 94 Respiratory Rate 18 18 Blood Pressure 141/69 H 137/61 Pulse Oximetry 95 93 Oxygen Delivery Method Room Air Room Air BMI result Body Mass Index 56.2 Labs Results: 06/11/22 06:33 06/11/22 06:33 Labs: Laboratory Results - last 48 hr 06/09/22 06/10/22 06/10/22 18:47 06:40 06:40 WBC 12.2 H RBC 4.42 Hgb 12.7 Hct 40.3 MCV 91.2 MCH 28.7 MCHC 31.5 RDW 15.1 Plt Count 205 MPV 11.8 Immature Gran % (Auto) 0.8 H Neut % (Auto) 87.1 H Lymph % (Auto) 6.1 L [place] % (Auto) 5.6 Eos % (Auto) 0.0 Baso % (Auto) 0.4 Lymph # (Auto) 0.7 L [place] # (Auto) 0.7 Eos # (Auto) 0.0 Baso # (Auto) 0.1 Abs Immat Gran (auto) 0.10 H Absolute Neuts (auto) 10.6 H Absolute Nucleated RBC 0.000 Nucleated RBC % (auto) 0.0 PT 31.6 H 33.1 H INR 2.6 H 2.8 H Sodium Potassium Chloride Carbon Dioxide Anion Gap BUN Creatinine Estim Creat Clear Calc Estimated GFR POC Glucose Fasting Glucose Calcium Total Bilirubin AST ALT Alkaline Phosphatase Total Protein Albumin 06/10/22 06/10/22 06/11/22 06:40 11:51 06:33 WBC RBC Hgb Hct MCV MCH MCHC RDW Plt Count MPV Immature Gran % (Auto) Neut % (Auto) Lymph % (Auto) [place] % (Auto) Eos % (Auto) Baso % (Auto) Lymph # (Auto) [place] # (Auto) Eos # (Auto) Baso # (Auto) Abs Immat Gran (auto) Absolute Neuts (auto) Absolute Nucleated RBC Nucleated RBC % (auto) PT 37.3 H INR 3.1 H Sodium 141 Potassium 3.8 Chloride 104 Carbon Dioxide 23 Anion Gap 18 BUN 25 H Creatinine 1.59 H Estim Creat Clear Calc 50.0 Estimated GFR 32 POC Glucose 112 Fasting Glucose 143 H Calcium 9.3 Total Bilirubin 0.2 AST 11 ALT 6 Alkaline Phosphatase 86 Total Protein 5.9 L Albumin 3.6 06/11/22 06/11/22 06:33 06:33 WBC 10.2 RBC 4.36 Hgb 12.4 Hct 39.8 MCV 91.3 MCH 28.4 MCHC 31.2 RDW 15.2 Plt Count 217 MPV 11.7 Immature Gran % (Auto) 0.8 H Neut % (Auto) 80.7 H Lymph % (Auto) 10.3 L [place] % (Auto) 7.1 Eos % (Auto) 0.4 Baso % (Auto) 0.7 Lymph # (Auto) 1.1 L [place] # (Auto) 0.7 Eos # (Auto) 0.0 Baso # (Auto) 0.1 Abs Immat Gran (auto) 0.08 H Absolute Neuts (auto) 8.2 Absolute Nucleated RBC 0.000 Nucleated RBC % (auto) 0.0 PT INR Sodium 143 Potassium 3.6 Chloride 104 Carbon Dioxide 23 Anion Gap 20 BUN 24 H Creatinine 1.55 H Estim Creat Clear Calc 51.3 Estimated GFR 33 POC Glucose Fasting Glucose 121 H Calcium 9.2 Total Bilirubin 0.5 AST 12 ALT 7 Alkaline Phosphatase 89 Total Protein 5.9 L Albumin 3.8 Imaging Radiology Impressions: ITS Impressions Chest X-Ray 06/08/22 16:29 IMPRESSION: No acute cardiopulmonary process. Head CT 06/08/22 16:55 IMPRESSION: There is no acute finding here. There has been a left posterior craniotomy from previous exam there is encephalomalacia which is now present and there is some as described decreased attenuation in the adjacent white matter in the region. Although this could represent the patient's postoperative appearance tumor cannot be excluded. As described there is also felt to be new area of decreased attenuation which is just superior to the caudate and adjacent to the caudate on the right adjacent also at the level the anterior aspect of the body of the right lateral ventricle. This could represent white matter ischemic change however underlying lesion again cannot be excluded. Given these findings Recommendation is pre and postcontrast MRI for further evaluation. Head/Neck CTA 06/08/22 21:12 IMPRESSION: 1. No evidence of acute intracranial hemorrhage or edematous territorial infarction. 2. Changes of left parietal craniotomy for resection of a previously demonstrated subjacent extra-axial mass (presumably an underlying meningioma). Compared to most recent available prior exam in 2018, the bulk of the mass along the left posterior vertex has been resected with adjacent encephalomalacia of the left parietal lobe. However, there appears to be increased tumor bulk filling the posterior aspect of the superior sagittal sinus on today's exam. 3. CTA of the head and neck without proximal occlusion or flow-limiting stenosis. 4. Moderate multilevel degenerative spondyloarthropathy of the cervical spine. Medications Medications Current Medications Acetaminophen (Acetaminophen 325 Mg Tablet) 650 mg PO Q4H PRN PRN Reason: Headache Atorvastatin Calcium (Atorvastatin Calcium 40 Mg Tablet) 40 mg PO DAILY [facility] Last Admin: 06/11/22 09:59 Dose: 40 mg Escitalopram Oxalate (Escitalopram Oxalate 20 Mg Tablet) 20 mg PO DAILY [facility] Last Admin: 06/11/22 10:00 Dose: 20 mg Sodium Chloride (Ns) 1,000 mls @ 100 mls/hr IVCONT .Q10H [facility] Levothyroxine Sodium (Levothyroxine Sodium 50 Mcg Tablet) 50 mcg PO DAILY@0600 [facility] Last Admin: 06/11/22 05:51 Dose: 50 mcg Melatonin (Melatonin 3 Mg Tablet) 6 mg PO BEDTIME PRN PRN Reason: Insomnia Last Admin: 06/11/22 00:13 Dose: 6 mg Non-Formulary Medication (Trelegy Ellipta) 100 mcg INHALE DAILY [facility] Olanzapine (Olanzapine 5 Mg Tablet) 5 mg PO BEDTIME [facility] Last Admin: 06/10/22 21:34 Dose: 5 mg Omeprazole (Omeprazole 20 Mg Capsule.Dr) 20 mg PO DAILY@0630 [facility] Last Admin: 06/11/22 05:51 Dose: 20 mg Ondansetron HCl (Ondansetron Hcl 4 Mg/2 Ml Vial) 4 mg IVPUSH Q4H PRN PRN Reason: Nausea Potassium Chloride (Potassium Chloride Er 10 Meq Capsule.Er) 10 meq PO DAILY [facility] Last Admin: 06/11/22 09:59 Dose: 10 meq Senna (Sennosides 8.6 Mg Tablet) 17.2 mg PO BEDTIME PRN PRN Reason: Constipation Sodium Chloride (0.9 % Sodium Chloride Flush 3 Ml Syringe) 3 ml IVFLUSH QSHIFT [facility] Last Admin: 06/11/22 10:00 Dose: 3 ml Warfarin Sodium (Warfarin Sodium 3 Mg Tablet) 3 mg PO DAILY@1800 [facility] Last Admin: 06/10/22 17:16 Dose: 3 mg Allergies Allergies Allergy/AdvReac Type Severity Reaction Status Date / Time Iodinated Contrast Media AdvReac Unknown Vomiting Unverified 06/10/22 10:09 [IV DYE, IODINE CONTAINING CONTRAST ] Assessment & Plan Assessment & Plan (1) Acute alteration in mental status: Status: Acute Code(s): R41.82 - Altered mental status, unspecified (2) Delirium: Status: Acute Code(s): R41.0 - Disorientation, unspecified (3) DVT (deep venous thrombosis): Status: Acute Code(s): I82.409 - Acute embolism and thrombosis of unspecified deep veins of unspecified lower extremity Plan 76-year-old female with a past medical history of hypertension, hyperlipidemia, diabetes, history of DVT on Coumadin, GERD, hypothyroidism, history of meningioma status post resection in February 2022; presented to the hospital today with a chief complaint of confusion.? Audio and visual hallucinations started after taking oxycodone for wrist pain 1. Acute alteration in mental status (audio/visual hallucinations) - Zyprexa ineffective. Will consult psych for possible transfer to [facility] psych you -appreciate psychiatric input.? 2. History of DVT -continue Coumadin with goal INR between 2-3 -daily INR 3. Hypertension -acceptable control on current therapies adjust as indicated 4. Hypothyroidism -continue outpatient supplements Coumadin Full code Requires ongoing hospitalization to complete workup of alteration in mental status psychiatry 06/11/2022: Given delirium, would not transfer to inpatient Geriatric psychiatry at this point. Avoid benzodiazepines, opiates, antihis tamines. Would recommend trial of trazodone 50 mg bedtime for sleep. Discontinue Zyprexa. trial risperidone 0.25 mg b.i.d. And 0.25 b.i.d. p.r.n. Continue medical work up. I spent minutes with the patient and/or on the patient floor today, greater than?50% of which was spent counseling/coordinating care. Reason for contiued inpatient stay Substantial Risk for: inability to function
[2022-06-11] MEDS: risperiDONE 0.25 MG TABLET PO (17:47)
[2022-06-11] MEDS: Warfarin Sodium 3 MG TABLET PO (17:47)
[2022-06-11] MEDS: 0.9 % Sodium Chloride 1,000 ML 100 ML IVCONT (17:47)
[2022-06-12 02:27] VITALS: BP 126/64; PULSE 85; RESP 18; TEMP 36.7; O2SAT 91
[2022-06-12] MEDS: 0.9 % Sodium Chloride 1,000 ML 100 ML IVCONT ×2 (05:57→15:54)
[2022-06-12] MEDS: Levothyroxine Sodium 50 MCG TABLET PO (06:36)
[2022-06-12] MEDS: Omeprazole 20 MG CAPSULE.DR PO (06:36)
[2022-06-12 07:41] LABS: MANUAL DIFF FLAG NO
[2022-06-12] MEDS: risperiDONE 0.25 MG TABLET PO ×2 (07:45→21:03)
[2022-06-12] MEDS: Atorvastatin Calcium 40 MG TABLET PO (07:45)
[2022-06-12] MEDS: 0.9 % Sodium Chloride Flush 3 ML SYRINGE IVFLUSH (07:45)
[2022-06-12] MEDS: Escitalopram Oxalate 20 MG TABLET PO (07:45)
[2022-06-12 07:55] LABS: INTERNATIONAL NORM RATIO 3.6 (0.9-1.1); Prothrombin Time 43.4 SEC (10.0-13.1)
[2022-06-12 07:57] VITALS: BP 125/57; PULSE 75; RESP 18; TEMP 37; O2SAT 94
[2022-06-12 08:01] LABS: Basophils Absolute Auto 0.1 X10*3/uL (0.0-0.2); Basophils Percent Auto 0.6 % (0-2); Eosinophils Absolute Auto 0.2 X10*3/uL (0.0-0.4); Eosinophils Percent Auto 2.7 % (0-4); Hematocrit 37.9 % (37.0-47.0); Hemoglobin 11.7 g/dl (12.0-16.0); Imm Gran Abs Auto 0.07 X10*3/uL (0.00-0.03); Imm Gran Pct Auto 0.9 % (0.0-0.4); Lymphocytes Absolute Auto 0.9 X10*3/uL (1.2-4.9); Lymphocytes Percent Auto 11.3 % (20-40); Mean Corpuscular HGB Conc 30.9 g/dl (31.0-35.0); Mean Corpuscular Hemoglobin 28.2 pg (27.0-33.0); Mean Corpuscular Volume 91.3 fL (80.0-98.0); Mean Platelet Volume 11.7 fL (9.4-12.3); Monocytes Absolute Auto 0.6 X10*3/uL (0.1-1.2); Neutrophils Absolute Auto 6.1 x10*3/uL (2.0-8.3); Neutrophils Percent Auto 77.5 % (45-73); Platelet Count 168 X10*3/uL (160-400); Red Blood Count 4.15 X10*6/uL (4.20-5.50); Red Cell Distribution Width 15.4 % (11.0-16.0); White Blood Count 7.8 X10*3/uL (4.8-10.8)
[2022-06-12 08:16] LABS: Alanine Aminotransferase 6 U/L (0-31); Albumin Level 3.4 g/dL (3.5-5.0); Alkaline Phosphatase 78 U/L (39-117); Anion Gap 17 (12-20); Aspartate Amino Transferase 12 U/L (5-31); Bilirubin Total 0.6 mg/dL (0.0-1.0); Blood Urea Nitrogen 21 mg/dL (9-16); Carbon Dioxide 25 mmol/L (22-29); Chloride 106 mmol/L (96-108); Estimated Glomerular Filt Rate 36; Glucose Fasting 106 mg/dL (60-99); Potassium 3.4 mmol/L (3.3-5.1); Sodium 145 mmol/L (135-145); Total Protein 5.3 g/dL (6.5-8.0)
[2022-06-12 08:25] LABS: Ammonia 19 umol/L (13-55)
[2022-06-12 08:27] LABS: Calcium 8.4 mg/dL (8.4-10.2)
[2022-06-12] MEDS: Acetaminophen 325 MG TABLET 650 MG PO (11:20)
--- NOTE | 2022-06-12 14:26 | HO.PM.IMPN ---
Subjective Subjective Date of Service: 06/12/22 Interval History: Marked improvement in behavior. Slept well overnight Physical Exam Vital Signs: Vital Signs: Last Vital Signs Temp 98.6 F 06/12/22 07:57 Pulse 75 06/12/22 07:57 Resp 18 06/12/22 07:57 BP 125/57 L 06/12/22 07:57 Pulse Ox 94 06/12/22 07:57 O2 Del Method 06/12/22 07:57 BMI result Body Mass Index 56.2 Const: Other: No acute distress. Appears to be responding to internal stimuli Resp: Other: Clear to auscultation bilaterally no rales rhonchi or wheezes Cardio: Other: No S4; positive S1-S2; no S3 murmurs rubs or gallops GI: Other: Soft nontender nondistended normoactive bowel sounds Extrem: Other: No edema bilaterally Objective Data Active Medications Acetaminophen (Acetaminophen 325 Mg Tablet) 650 mg PO Q4H PRN PRN Reason: Headache Last Admin: 06/12/22 11:20 Dose: 650 mg Documented By: JOHN Atorvastatin Calcium (Atorvastatin Calcium 40 Mg Tablet) 40 mg PO DAILY [facility] Last Admin: 06/12/22 07:45 Dose: 40 mg Documented By: JOHN Escitalopram Oxalate (Escitalopram Oxalate 20 Mg Tablet) 20 mg PO DAILY [facility] Last Admin: 06/12/22 07:45 Dose: 20 mg Documented By: JOHN Sodium Chloride (Ns) 1,000 mls @ 100 mls/hr IVCONT .Q10H [facility] Last Admin: 06/12/22 05:57 Dose: 100 mls/hr Documented By: ZHENG Levothyroxine Sodium (Levothyroxine Sodium 50 Mcg Tablet) 50 mcg PO DAILY@0600 [facility] Last Admin: 06/12/22 06:36 Dose: 50 mcg Documented By: ZHENG Melatonin (Melatonin 3 Mg Tablet) 6 mg PO BEDTIME PRN PRN Reason: Insomnia Last Admin: 06/11/22 00:13 Dose: 6 mg Documented By: ZHENG Non-Formulary Medication (Trelegy Ellipta) 100 mcg INHALE DAILY [facility] Omeprazole (Omeprazole 20 Mg Capsule.) 20 mg PO DAILY@0630 [facility] Last Admin: 06/12/22 06:36 Dose: 20 mg Documented By: ZHENG Ondansetron HCl (Ondansetron Hcl 4 Mg/2 Ml Vial) 4 mg IVPUSH Q4H PRN PRN Reason: Nausea Potassium Chloride (Potassium Chloride Er 10 Meq Capsule.Er) 10 meq PO DAILY [facility] Last Admin: 06/12/22 07:44 Dose: 10 meq Documented By: JOHN Risperidone (Risperidone 0.25 Mg Tablet) 0.25 mg PO BID [facility] Last Admin: 06/12/22 07:45 Dose: 0.25 mg Documented By: JOHN Senna (Sennosides 8.6 Mg Tablet) 17.2 mg PO BEDTIME PRN PRN Reason: Constipation Sodium Chloride (0.9 % Sodium Chloride Flush 3 Ml Syringe) 3 ml IVFLUSH QSHIFT [facility] Last Admin: 06/12/22 07:45 Dose: 3 ml Documented By: JOHN Trazodone HCl (Trazodone Hcl 50 Mg Tablet) 50 mg PO BEDTIME [facility] Last Admin: 06/12/22 00:21 Dose: Not Given Documented By: ZHENG Non-Admin Reason: PT ASLEEP Warfarin Sodium (Warfarin Sodium 1 Mg Tablet) 1 mg PO DAILY@1800 [facility] Labs CBC & Chem 7: 06/12/22 07:35 06/12/22 07:35 Labs: Laboratory Results - last 24 hr 06/12/22 06/12/22 06/12/22 07:35 07:35 07:35 MCV 91.3 MCH 28.2 MCHC 30.9 L RDW 15.4 Plt Count 168 MPV 11.7 Immature Gran % (Auto) 0.9 H Neut % (Auto) 77.5 H Lymph % (Auto) 11.3 L [place] % (Auto) 7.0 Eos % (Auto) 2.7 Baso % (Auto) 0.6 Lymph # (Auto) 0.9 L [place] # (Auto) 0.6 Eos # (Auto) 0.2 Baso # (Auto) 0.1 Abs Immat Gran (auto) 0.07 H Absolute Neuts (auto) 6.1 Absolute Nucleated RBC 0.000 Nucleated RBC % (auto) 0.0 PT 43.4 H INR 3.6 H Anion Gap Estim Creat Clear Calc Estimated GFR Fasting Glucose Calcium Total Bilirubin AST ALT Alkaline Phosphatase Ammonia 19 Total Protein Albumin 06/12/22 07:35 MCV MCH MCHC RDW Plt Count MPV Immature Gran % (Auto) Neut % (Auto) Lymph % (Auto) [place] % (Auto) Eos % (Auto) Baso % (Auto) Lymph # (Auto) [place] # (Auto) Eos # (Auto) Baso # (Auto) Abs Immat Gran (auto) Absolute Neuts (auto) Absolute Nucleated RBC Nucleated RBC % (auto) PT INR Anion Gap 17 Estim Creat Clear Calc 56.0 Estimated GFR 36 Fasting Glucose 106 H Calcium 8.4 D Total Bilirubin 0.6 AST 12 ALT 6 Alkaline Phosphatase 78 Ammonia Total Protein 5.3 L Albumin 3.4 L Microbiology Microbiology Results: Microbiology 06/09/22 00:20 Gram Stain - Final Cerebrospinal Fluid CSF Examination - Final Fluid Description - Final CSF Culture - Final No growth after 3 days. Assessment and Plan (1) Acute alteration in mental status: Status: Acute (2) DVT (deep venous thrombosis): Status: Acute (3) HTN (hypertension): Status: Acute Plan 76-year-old female with a past medical history of hypertension, hyperlipidemia, diabetes, history of DVT on Coumadin, GERD, hypothyroidism, history of meningioma status post resection in February 2022; presented to the hospital today with a chief complaint of confusion.? Audio and visual hallucinations started after taking oxycodone for wrist pain 1. Acute alteration in mental status (audio/visual hallucinations) - risperdone [id number] effective..continue same -appreciate psychiatric input.? 2. History of DVT -continue Coumadin with goal INR between 2-3 -daily INR 3. Hypertension -acceptable control on current therapies adjust as indicated 4. Hypothyroidism -continue outpatient supplements Coumadin Full code Requires ongoing hospitalization to complete workup of alteration in mental status Quality Stroke Does the patient have a stroke diagnosis?: No VTE Prior VTE?: No VTE Risk Level:: Medical - moderate - high VTE Device Contraindication: N/A - Device Ordered VTE Drug Contraindication: Treatment Not Indicated
[2022-06-12 16:00] VITALS: BP 95/44; PULSE 73; RESP 18; TEMP 36.4; O2SAT 93
[2022-06-12] MEDS: Warfarin Sodium 1 MG TABLET PO (17:19)
[2022-06-12 19:09] VITALS: BP 111/54; PULSE 80; RESP 18; TEMP 36.2; O2SAT 94
[2022-06-12] MEDS: traZODone HCL 50 MG TABLET PO (21:03)
[2022-06-12] MEDS: Sennosides 8.6 MG TABLET 17.2 MG PO (21:08)
[2022-06-12 23:12] VITALS: BP 118/56; PULSE 80; RESP 18; TEMP 36.2; O2SAT 98
[2022-06-13] MEDS: 0.9 % Sodium Chloride 1,000 ML 100 ML IVCONT (01:33)
[2022-06-13 03:11] VITALS: BP 130/63; PULSE 78; RESP 18; TEMP 36.3; O2SAT 93
[2022-06-13] MEDS: Omeprazole 20 MG CAPSULE.DR PO (05:40)
[2022-06-13] MEDS: Levothyroxine Sodium 50 MCG TABLET PO (05:40)
[2022-06-13 06:15] LABS: MANUAL DIFF FLAG NO
[2022-06-13 06:23] LABS: Basophils Percent Auto 0.6 % (0-2); Eosinophils Absolute Auto 0.2 X10*3/uL (0.0-0.4); Eosinophils Percent Auto 2.9 % (0-4); Hematocrit 37.6 % (37.0-47.0); Hemoglobin 11.2 g/dl (12.0-16.0); Imm Gran Abs Auto 0.05 X10*3/uL (0.00-0.03); Imm Gran Pct Auto 0.7 % (0.0-0.4); Lymphocytes Absolute Auto 1.1 X10*3/uL (1.2-4.9); Lymphocytes Percent Auto 16.2 % (20-40); Mean Corpuscular HGB Conc 29.8 g/dl (31.0-35.0); Mean Corpuscular Hemoglobin 27.9 pg (27.0-33.0); Mean Corpuscular Volume 93.8 fL (80.0-98.0); Mean Platelet Volume 12.1 fL (9.4-12.3); Monocytes Absolute Auto 0.5 X10*3/uL (0.1-1.2); Monocytes Percent Auto 6.6 % (2-11); Neutrophils Absolute Auto 5.1 x10*3/uL (2.0-8.3); Platelet Count 145 X10*3/uL (160-400); Red Blood Count 4.01 X10*6/uL (4.20-5.50); Red Cell Distribution Width 15.5 % (11.0-16.0); White Blood Count 6.9 X10*3/uL (4.8-10.8)
[2022-06-13 06:33] LABS: INTERNATIONAL NORM RATIO 3.5 (0.9-1.1); Prothrombin Time 42.8 SEC (10.0-13.1)
[2022-06-13 06:55] LABS: Alanine Aminotransferase 8 U/L (0-31); Albumin Level 3.1 g/dL (3.5-5.0); Alkaline Phosphatase 74 U/L (39-117); Anion Gap 15 (12-20); Aspartate Amino Transferase 11 U/L (5-31); Bilirubin Total 0.6 mg/dL (0.0-1.0); Blood Urea Nitrogen 18 mg/dL (9-16); Calcium 8.3 mg/dL (8.4-10.2); Carbon Dioxide 24 mmol/L (22-29); Chloride 108 mmol/L (96-108); Creatinine Clr Calc Pharmacy 62.6; Estimated Glomerular Filt Rate 41; Glucose Fasting 100 mg/dL (60-99); Potassium 4.3 mmol/L (3.3-5.1); Sodium 143 mmol/L (135-145)
[2022-06-13 08:00] VITALS: BP 115/54; PULSE 74; RESP 16; TEMP 36.8; O2SAT 93
[2022-06-13] MEDS: Escitalopram Oxalate 20 MG TABLET PO (09:42)
[2022-06-13] MEDS: Atorvastatin Calcium 40 MG TABLET PO (09:42)
[2022-06-13] MEDS: 0.9 % Sodium Chloride Flush 3 ML SYRINGE IVFLUSH ×3 (09:42→22:22)
[2022-06-13] MEDS: risperiDONE 0.25 MG TABLET PO ×2 (09:43→22:22)
[2022-06-13 11:35] VITALS: BP 121/57; PULSE 72; RESP 16; TEMP 36.3; O2SAT 94
--- NOTE | 2022-06-13 11:37 | HO.PM.IMPN ---
Subjective Subjective Date of Service: 06/13/22 Interval History: Markedly improved. Essentially back to baseline. Admits to occasional visual hallucinations but aware that they are just that Review of Systems Denies chest pain Denies shortness of breath Denies nausea vomiting diarrhea Physical Exam Vital Signs: Vital Signs: Last Vital Signs Temp 98.2 F 06/13/22 08:00 Pulse 74 06/13/22 08:00 Resp 16 06/13/22 08:00 BP 115/54 L 06/13/22 08:00 Pulse Ox 93 06/13/22 08:00 O2 Del Method 06/13/22 08:00 BMI result Body Mass Index 56.2 Const: Other: No acute distress. Resp: Other: Clear to auscultation bilaterally no rales rhonchi or wheezes Cardio: Other: No S4; positive S1-S2; no S3 murmurs rubs or gallops GI: Other: Soft nontender nondistended normoactive bowel sounds Extrem: Other: No edema bilaterally Objective Data Active Medications Acetaminophen (Acetaminophen 325 Mg Tablet) 650 mg PO Q4H PRN PRN Reason: Headache Last Admin: 06/12/22 11:20 Dose: 650 mg Documented By: JOHN Atorvastatin Calcium (Atorvastatin Calcium 40 Mg Tablet) 40 mg PO DAILY [facility] Last Admin: 06/13/22 09:42 Dose: 40 mg Documented By: FELIX Escitalopram Oxalate (Escitalopram Oxalate 20 Mg Tablet) 20 mg PO DAILY [facility] Last Admin: 06/13/22 09:42 Dose: 20 mg Documented By: FELIX Sodium Chloride (Ns) 1,000 mls @ 100 mls/hr IVCONT .Q10H [facility] Last Admin: 06/13/22 01:33 Dose: 100 mls/hr Documented By: NIKOS Levothyroxine Sodium (Levothyroxine Sodium 50 Mcg Tablet) 50 mcg PO DAILY@0600 [facility] Last Admin: 06/13/22 05:40 Dose: 50 mcg Documented By: NIKOS Melatonin (Melatonin 3 Mg Tablet) 6 mg PO BEDTIME PRN PRN Reason: Insomnia Last Admin: 06/11/22 00:13 Dose: 6 mg Documented By: ZHENG Non-Formulary Medication (Trelegy Ellipta) 100 mcg INHALE DAILY [facility] Omeprazole (Omeprazole 20 Mg Capsule.) 20 mg PO DAILY@0630 [facility] Last Admin: 06/13/22 05:40 Dose: 20 mg Documented By: NIKOS Ondansetron HCl (Ondansetron Hcl 4 Mg/2 Ml Vial) 4 mg IVPUSH Q4H PRN PRN Reason: Nausea Potassium Chloride (Potassium Chloride Er 10 Meq Capsule.Er) 10 meq PO DAILY [facility] Last Admin: 06/13/22 09:42 Dose: 10 meq Documented By: FELIX Risperidone (Risperidone 0.25 Mg Tablet) 0.25 mg PO BID [facility] Last Admin: 06/13/22 09:43 Dose: 0.25 mg Documented By: FELIX Senna (Sennosides 8.6 Mg Tablet) 17.2 mg PO BEDTIME PRN PRN Reason: Constipation Last Admin: 06/12/22 21:08 Dose: 17.2 mg Documented By: FOSTER Sodium Chloride (0.9 % Sodium Chloride Flush 3 Ml Syringe) 3 ml IVFLUSH QSHIFT [facility] Last Admin: 06/13/22 09:42 Dose: 3 ml Documented By: FELIX Trazodone HCl (Trazodone Hcl 50 Mg Tablet) 50 mg PO BEDTIME [facility] Last Admin: 06/12/22 21:03 Dose: 50 mg Documented By: FOSTER Warfarin Sodium (Warfarin Sodium 1 Mg Tablet) 1 mg PO DAILY@1800 [facility] Last Admin: 06/12/22 17:19 Dose: 1 mg Documented By: JOHN Labs CBC & Chem 7: 06/13/22 05:43 06/13/22 05:43 Labs: Laboratory Results - last 24 hr 06/13/22 06/13/22 06/13/22 05:43 05:43 05:43 MCV 93.8 MCH 27.9 MCHC 29.8 L RDW 15.5 Plt Count 145 L MPV 12.1 Immature Gran % (Auto) 0.7 H Neut % (Auto) 73.0 Lymph % (Auto) 16.2 L [place] % (Auto) 6.6 Eos % (Auto) 2.9 Baso % (Auto) 0.6 Lymph # (Auto) 1.1 L [place] # (Auto) 0.5 Eos # (Auto) 0.2 Baso # (Auto) 0.0 Abs Immat Gran (auto) 0.05 H Absolute Neuts (auto) 5.1 Absolute Nucleated RBC 0.000 Nucleated RBC % (auto) 0.0 PT 42.8 H INR 3.5 H Anion Gap 15 Estim Creat Clear Calc 62.6 Estimated GFR 41 Fasting Glucose 100 H Calcium 8.3 L Total Bilirubin 0.6 AST 11 ALT 8 Alkaline Phosphatase 74 Total Protein 5.0 L Albumin 3.1 L Microbiology Microbiology Results: Microbiology 06/09/22 00:20 Gram Stain - Final Cerebrospinal Fluid CSF Examination - Final Fluid Description - Final CSF Culture - Final No growth after 3 days. Assessment and Plan (1) Acute alteration in mental status: Status: Acute (2) DVT (deep venous thrombosis): Status: Acute (3) HTN (hypertension): Status: Acute Plan 76-year-old female with a past medical history of hypertension, hyperlipidemia, diabetes, history of DVT on Coumadin, GERD, hypothyroidism, history of meningioma status post resection in February 2022; presented to the hospital today with a chief complaint of confusion.? Audio and visual hallucinations started after taking oxycodone for wrist pain 1. Acute alteration in mental status (audio/visual hallucinations) - risperdone extremely effective ... Back to baseline -PT consult in am... 2. History of DVT -continue Coumadin with goal INR between 2-3 -daily INR 3. Hypertension -acceptable control on current therapies adjust as indicated 4. Hypothyroidism -continue outpatient supplements Coumadin Full code Requires ongoing hospitalization to complete workup of alteration in mental status Quality Stroke Does the patient have a stroke diagnosis?: No VTE Prior VTE?: No VTE Risk Level:: Medical - moderate - high VTE Device Contraindication: N/A - Device Ordered VTE Drug Contraindication: Treatment Not Indicated
--- NOTE | 2022-06-13 15:08 | MHC.CM.PN ---
per rounds no planned dc date at this time pt still undergoing work up for altered menatation plan remains home with services
[2022-06-13 15:41] VITALS: BP 123/58; PULSE 80; RESP 18; TEMP 37.3; O2SAT 92
[2022-06-13 19:24] VITALS: BP 122/59; PULSE 73; RESP 18; TEMP 36.8; O2SAT 95
[2022-06-13] MEDS: traZODone HCL 50 MG TABLET PO (22:22)
[2022-06-13 23:02] VITALS: BP 128/59; PULSE 80; RESP 18; TEMP 36.7; O2SAT 98
[2022-06-14] MEDS: Melatonin 3 MG TABLET 6 MG PO ×2 (01:31→19:46)
[2022-06-14 03:49] VITALS: BP 139/60; PULSE 68; RESP 18; TEMP 36.9; O2SAT 95
[2022-06-14] MEDS: Omeprazole 20 MG CAPSULE.DR PO (06:29)
[2022-06-14] MEDS: Levothyroxine Sodium 50 MCG TABLET PO (06:29)
[2022-06-14 06:57] LABS: MANUAL DIFF FLAG NO
[2022-06-14 07:02] LABS: Basophils Percent Auto 0.5 % (0-2); Eosinophils Absolute Auto 0.2 X10*3/uL (0.0-0.4); Eosinophils Percent Auto 2.8 % (0-4); Hematocrit 37.2 % (37.0-47.0); Hemoglobin 11.3 g/dl (12.0-16.0); Imm Gran Abs Auto 0.09 X10*3/uL (0.00-0.03); Imm Gran Pct Auto 1.2 % (0.0-0.4); Lymphocytes Absolute Auto 0.9 X10*3/uL (1.2-4.9); Lymphocytes Percent Auto 12.4 % (20-40); Mean Corpuscular HGB Conc 30.4 g/dl (31.0-35.0); Mean Corpuscular Hemoglobin 28.2 pg (27.0-33.0); Mean Corpuscular Volume 92.8 fL (80.0-98.0); Mean Platelet Volume 12.1 fL (9.4-12.3); Monocytes Absolute Auto 0.4 X10*3/uL (0.1-1.2); Monocytes Percent Auto 5.7 % (2-11); Neutrophils Absolute Auto 5.8 x10*3/uL (2.0-8.3); Neutrophils Percent Auto 77.4 % (45-73); Platelet Count 160 X10*3/uL (160-400); Red Blood Count 4.01 X10*6/uL (4.20-5.50); Red Cell Distribution Width 15.2 % (11.0-16.0); White Blood Count 7.5 X10*3/uL (4.8-10.8)
[2022-06-14 07:05] LABS: INTERNATIONAL NORM RATIO 2.4 (0.9-1.1); Prothrombin Time 28.2 SEC (10.0-13.1)
[2022-06-14 07:17] VITALS: BP 133/67; PULSE 65; RESP 20; TEMP 36.1; O2SAT 94
[2022-06-14 07:23] LABS: Alanine Aminotransferase 7 U/L (0-31); Albumin Level 3.1 g/dL (3.5-5.0); Alkaline Phosphatase 76 U/L (39-117); Anion Gap 15 (12-20); Aspartate Amino Transferase 11 U/L (5-31); Bilirubin Total 0.5 mg/dL (0.0-1.0); Blood Urea Nitrogen 16 mg/dL (9-16); Calcium 8.3 mg/dL (8.4-10.2); Carbon Dioxide 24 mmol/L (22-29); Chloride 107 mmol/L (96-108); Creatinine Clr Calc Pharmacy 69.8; Estimated Glomerular Filt Rate 47; Glucose Fasting 112 mg/dL (60-99); Potassium 3.8 mmol/L (3.3-5.1); Sodium 142 mmol/L (135-145); Total Protein 4.8 g/dL (6.5-8.0)
[2022-06-14] MEDS: 0.9 % Sodium Chloride Flush 3 ML SYRINGE IVFLUSH ×2 (09:39→17:47)
[2022-06-14] MEDS: Atorvastatin Calcium 40 MG TABLET PO (09:41)
[2022-06-14] MEDS: Escitalopram Oxalate 20 MG TABLET PO (09:42)
[2022-06-14] MEDS: risperiDONE 0.25 MG TABLET PO ×2 (09:42→19:46)
[2022-06-14 09:51] VITALS: BP 133/67; PULSE 65; O2SAT 94
--- NOTE | 2022-06-14 10:12 | MHC.CM.PN ---
physical therapy recommends home with servcies referral made to [facility]
[2022-06-14 11:13] LABS: Glucose, Whole Blood 109 mg/dL (60-115)
[2022-06-14 11:56] VITALS: BP 122/58; PULSE 69; RESP 16; TEMP 36.4; O2SAT 94
--- NOTE | 2022-06-14 12:36 | MHC.CM.PN ---
pt to be dcd tomorrow [facility] notified
[2022-06-14 15:34] VITALS: BP 121/57; PULSE 70; RESP 18; TEMP 36.8; O2SAT 95
--- NOTE | 2022-06-14 16:35 | HO.PM.IMPN ---
Subjective Subjective Date of Service: 06/14/22 Interval History: possible encephalopathy Review of Systems seems mental status improved, near baseline Physical Exam Vital Signs: Vital Signs: Last Vital Signs Temp 98.2 F 06/14/22 15:34 Pulse 70 06/14/22 15:34 Resp 18 06/14/22 15:34 BP 121/57 L 06/14/22 15:34 Pulse Ox 95 06/14/22 15:34 O2 Del Method 06/14/22 15:34 BMI result Body Mass Index 56.2 Appearance: Alert.? Oriented .? not in distress.? cvs: rrr, [id number] res: clear to auscultation ,no rhonchii or wheezing abd: no rebound or guarding ,nt , bs present. ext pulses present , no cyanosis . neuro: axo3 , nonfocal. Objective Data Active Medications Acetaminophen (Acetaminophen 325 Mg Tablet) 650 mg PO Q4H PRN PRN Reason: Headache Last Admin: 06/12/22 11:20 Dose: 650 mg Documented By: JOHN Atorvastatin Calcium (Atorvastatin Calcium 40 Mg Tablet) 40 mg PO DAILY [facility] Last Admin: 06/14/22 09:41 Dose: 40 mg Documented By: FELIX Escitalopram Oxalate (Escitalopram Oxalate 20 Mg Tablet) 20 mg PO DAILY [facility] Last Admin: 06/14/22 09:42 Dose: 20 mg Documented By: FELIX Levothyroxine Sodium (Levothyroxine Sodium 50 Mcg Tablet) 50 mcg PO DAILY@0600 [facility] Last Admin: 06/14/22 06:29 Dose: 50 mcg Documented By: BRADEN Melatonin (Melatonin 3 Mg Tablet) 6 mg PO BEDTIME PRN PRN Reason: Insomnia Last Admin: 06/14/22 01:31 Dose: 6 mg Documented By: GIGI Non-Formulary Medication (Trelegy Ellipta) 100 mcg INHALE DAILY [facility] Omeprazole (Omeprazole 20 Mg Capsule.) 20 mg PO DAILY@0630 [facility] Last Admin: 06/14/22 06:29 Dose: 20 mg Documented By: BRADEN Ondansetron HCl (Ondansetron Hcl 4 Mg/2 Ml Vial) 4 mg IVPUSH Q4H PRN PRN Reason: Nausea Potassium Chloride (Potassium Chloride Er 10 Meq Capsule.Er) 10 meq PO DAILY [facility] Last Admin: 06/14/22 09:39 Dose: 10 meq Documented By: FELIX Risperidone (Risperidone 0.25 Mg Tablet) 0.25 mg PO BID [facility] Last Admin: 06/14/22 09:42 Dose: 0.25 mg Documented By: FELIX Senna (Sennosides 8.6 Mg Tablet) 17.2 mg PO BEDTIME PRN PRN Reason: Constipation Last Admin: 06/12/22 21:08 Dose: 17.2 mg Documented By: IGLESPoornima Sodium Chloride (0.9 % Sodium Chloride Flush 3 Ml Syringe) 3 ml IVFLUSH QSHIFT [facility] Last Admin: 06/14/22 09:39 Dose: 3 ml Documented By: FELIX Trazodone HCl (Trazodone Hcl 50 Mg Tablet) 50 mg PO BEDTIME [facility] Last Admin: 06/13/22 22:22 Dose: 50 mg Documented By: BRADEN Warfarin Sodium (Warfarin Sodium 1 Mg Tablet) 1 mg PO DAILY@1800 [facility] Last Admin: 06/13/22 14:40 Dose: Not Given Documented By: FELIX Non-Admin Reason: Physician Held Med Labs CBC & Chem 7: 06/14/22 06:15 06/14/22 06:15 Labs: Laboratory Results - last 24 hr 06/14/22 06/14/22 06/14/22 06:15 06:15 06:15 MCV 92.8 MCH 28.2 MCHC 30.4 L RDW 15.2 Plt Count 160 MPV 12.1 Immature Gran % (Auto) 1.2 H Neut % (Auto) 77.4 H Lymph % (Auto) 12.4 L [place] % (Auto) 5.7 Eos % (Auto) 2.8 Baso % (Auto) 0.5 Lymph # (Auto) 0.9 L [place] # (Auto) 0.4 Eos # (Auto) 0.2 Baso # (Auto) 0.0 Abs Immat Gran (auto) 0.09 H Absolute Neuts (auto) 5.8 Absolute Nucleated RBC 0.000 Nucleated RBC % (auto) 0.0 PT 28.2 H INR 2.4 H Anion Gap 15 Estim Creat Clear Calc 69.8 Estimated GFR 47 POC Glucose Fasting Glucose 112 H Calcium 8.3 L Total Bilirubin 0.5 AST 11 ALT 7 Alkaline Phosphatase 76 Total Protein 4.8 L Albumin 3.1 L 06/14/22 11:04 MCV MCH MCHC RDW Plt Count MPV Immature Gran % (Auto) Neut % (Auto) Lymph % (Auto) [place] % (Auto) Eos % (Auto) Baso % (Auto) Lymph # (Auto) [place] # (Auto) Eos # (Auto) Baso # (Auto) Abs Immat Gran (auto) Absolute Neuts (auto) Absolute Nucleated RBC Nucleated RBC % (auto) PT INR Anion Gap Estim Creat Clear Calc Estimated GFR POC Glucose 109 Fasting Glucose Calcium Total Bilirubin AST ALT Alkaline Phosphatase Total Protein Albumin Microbiology Microbiology Results: Microbiology 06/09/22 00:11 Blood Culture - Final Blood - Venous No growth after 5 days. 06/09/22 00:11 Blood Culture - Final Blood - Venous No growth after 5 days. Assessment and Plan (1) Encephalopathy: Status: Acute Plan 76-year-old female with a past medical history of hypertension, hyperlipidemia, diabetes, history of DVT on Coumadin, GERD, hypothyroidism, history of meningioma status post resection in February 2022; presented to the hospital today with a chief complaint of confusion.? Audio and visual hallucinations started after taking oxycodone for wrist pain 1. toxic encephalopathy possible sec to medication? oxycodone - risperdone extremely effective ...? Back to baseline -PT consult in am. 2. History of DVT -continue Coumadin with goal INR between 2-3 -daily INR 3. Hypertension -acceptable control on current therapies adjust as indicated 4. Hypothyroidism -continue outpatient supplements Pt-recomended home PT. Coumadin Full code inpatient need: waiting for safe discharge . Quality Stroke Does the patient have a stroke diagnosis?: No VTE Prior VTE?: No VTE Risk Level:: Medical - moderate - high VTE Device Contraindication: N/A - Device Ordered VTE Drug Contraindication: Treatment Not Indicated
[2022-06-14] MEDS: Warfarin Sodium 1 MG TABLET PO (17:44)
[2022-06-14 19:26] VITALS: BP 110/54; PULSE 71; RESP 18; TEMP 36.8; O2SAT 96
[2022-06-14] MEDS: traZODone HCL 50 MG TABLET PO (19:46)
[2022-06-15] MEDS: 0.9 % Sodium Chloride Flush 3 ML SYRINGE IVFLUSH (02:08)
[2022-06-15 04:00] VITALS: BP 150/61; PULSE 76; RESP 20; TEMP 37.1; O2SAT 96
[2022-06-15] MEDS: Levothyroxine Sodium 50 MCG TABLET PO (05:33)
[2022-06-15] MEDS: Omeprazole 20 MG CAPSULE.DR PO (05:33)
[2022-06-15 06:22] LABS: MANUAL DIFF FLAG NO
[2022-06-15 06:46] LABS: Basophils Absolute Auto 0.1 X10*3/uL (0.0-0.2); Basophils Percent Auto 0.8 % (0-2); Eosinophils Absolute Auto 0.2 X10*3/uL (0.0-0.4); Eosinophils Percent Auto 2.5 % (0-4); Hematocrit 37.1 % (37.0-47.0); Hemoglobin 11.2 g/dl (12.0-16.0); Imm Gran Abs Auto 0.09 X10*3/uL (0.00-0.03); Imm Gran Pct Auto 1.1 % (0.0-0.4); Lymphocytes Percent Auto 12.9 % (20-40); Mean Corpuscular HGB Conc 30.2 g/dl (31.0-35.0); Mean Corpuscular Hemoglobin 28.1 pg (27.0-33.0); Mean Platelet Volume 11.8 fL (9.4-12.3); Monocytes Absolute Auto 0.5 X10*3/uL (0.1-1.2); Monocytes Percent Auto 5.6 % (2-11); Neutrophils Absolute Auto 6.2 x10*3/uL (2.0-8.3); Neutrophils Percent Auto 77.1 % (45-73); Platelet Count 144 X10*3/uL (160-400); Red Blood Count 3.99 X10*6/uL (4.20-5.50); Red Cell Distribution Width 15.4 % (11.0-16.0)
[2022-06-15 07:12] LABS: Alanine Aminotransferase 7 U/L (0-31); Albumin Level 2.9 g/dL (3.5-5.0); Alkaline Phosphatase 73 U/L (39-117); Anion Gap 13 (12-20); Aspartate Amino Transferase 10 U/L (5-31); Bilirubin Total 0.5 mg/dL (0.0-1.0); Blood Urea Nitrogen 15 mg/dL (9-16); Calcium 8.8 mg/dL (8.4-10.2); Carbon Dioxide 25 mmol/L (22-29); Chloride 109 mmol/L (96-108); Creatinine Clr Calc Pharmacy 77.3; Estimated Glomerular Filt Rate 52; Glucose Fasting 117 mg/dL (60-99); Potassium 4.2 mmol/L (3.3-5.1); Sodium 143 mmol/L (135-145); Total Protein 4.6 g/dL (6.5-8.0)
[2022-06-15 07:46] VITALS: BP 123/59; PULSE 75; RESP 20; TEMP 36.5; O2SAT 96
[2022-06-15 08:42] LABS: Prothrombin Time 23.5 SEC (10.0-13.1)
[2022-06-15] MEDS: risperiDONE 0.25 MG TABLET PO (09:10)
[2022-06-15] MEDS: Escitalopram Oxalate 20 MG TABLET PO (09:10)
[2022-06-15] MEDS: Atorvastatin Calcium 40 MG TABLET PO (09:10)
[2022-06-15 11:20] VITALS: BP 138/67; PULSE 65; RESP 18; TEMP 36.7; O2SAT 97
--- NOTE | 2022-06-15 11:41 | MHC.CM.NN ---
pt dcd today [facility] notified of dc
--- NOTE | 2022-06-15 12:39 | PM.DS ---
DS: Providers Provider Date of Service: 06/15/22 Date of admission: 06/08/22 23:51 Primary care physician: Rico Rodriguez MD Consults: 06/08/22 23:51 Consult to Hematology / Oncology Routine Consulting Provider: Lyle House Reason for consultation: Meningioma s/p resection; now has tumor bulk Consult to Neurology Routine Consulting Provider: [facility] Reason for consultation: meningiona; AMS 06/10/22 13:01 Consult to Psychiatry Stat Consulting Provider: Psych Covering Reason for consultation: psychosis Has provider been notified: Yes 06/11/22 15:52 Consult to Care Team Stat Comment: Reason for consultation: Pt with delerium DS: Diagnosis Discharge Diagnosis (1) Encephalopathy: Status: Acute (2) DVT (deep venous thrombosis): Status: Acute (3) Supratherapeutic INR: Status: Acute DS: Summary Hospital Course Hospital Course: 76-year-old female with a past medical history of hypertension, hyperlipidemia, diabetes, history of DVT on Coumadin, GERD, hypothyroidism, history of meningioma status post resection in February 2022; presented to the hospital today with a chief complaint of confusion.? Reportedly patient having episodes of confusion, hallucinations-both visual and auditory.? And has periods of normal mental status.? Denies any seizure-like activity.? At the time of entry patient is alert and awake, oriented x3; denies any chest pain or palpitations.? Denies any headaches numbness tingling or focal weakness.? Denies any blurry visions.? Reports she has intermittent headaches but currently denies any.? Denies any falls or trauma.? Review of all other systems is negative except mentioned above ER course: Per ER team patient has waxing and waning mental status; currently oriented x3; exam nonfocal; no obvious signs of infection; urinalysis negative; chest x-ray showed no evidence of pneumonia; CT head showed mild tumor burden; patient also had LP done in the ER.? Admitted to the hospital for further management. Hospital course: Toxic encephalopathy possible secondary to oxycodone: Seems to be improved after stopping oxycodone as well as seen by Psychiatry-added Risperdal small dose and trazodone: Patient seems back to her baseline. Patient is to follow-up with psychiatrist outpatient for further use of aspirate all and trazodone-[facility]. [facility] head(please see imaging section below-there appears to be increased tumor bulk filling the posterior aspect of the superior sagittal sinus ): findings discussed with Neurosurgery [facility]( [facility] neurosurgery MARCELLA): Seems like similar to 2018-patient is to follow-up with the MRI out patiently with PCP and consider outpatient follow-up with Neurosurgery in [facility]. History of DVT: INR was supratherapeutic, warfarin dose adjusted to 1.5 mg daily, monitor INR and out patiently and further management as per PCP. plan: Avoid oxycodone, steroids and meds that can cause similar symptoms as above. follow inr as above. Follow-up with PCP-with the MRI out patiently and consider outpatient follow-up with Neurosurgery in [facility]. follow up outpatient psych for further use of antipsychotics as above. Time Spent with Patient Time attestation: Total time spent providing and/or coordinating discharge services: Discharge coordination time: Greater than 30 minutes Quality: Safe Use of Opioids Does Pt have an Active Cancer Diagnosis on the Problem List?: No Quality: Stroke Does the patient have a stroke diagnosis?: No Physical Exam Vital Signs: Vital Signs: Last Vital Signs Temp 98.0 F 06/15/22 11:20 Pulse 65 06/15/22 11:20 Resp 18 06/15/22 11:20 BP 138/67 06/15/22 11:20 Pulse Ox 97 06/15/22 11:20 O2 Del Method 06/15/22 11:20 BMI result Body Mass Index 56.2 Appearance: Alert.? Oriented .? not in distress.? cvs: rrr, [id number] res: clear to auscultation ,no rhonchii or wheezing abd: no rebound or guarding ,nt , bs present. ext pulses present , no cyanosis . neuro: axo3 , moves all extemities DS: Data Data Completed and Pending Labs on day of discharge: Laboratory Results - last 24 hr 06/15/22 06/15/22 06/15/22 06:15 06:15 08:10 WBC 8.0 RBC 3.99 L Hgb 11.2 L Hct 37.1 MCV 93.0 MCH 28.1 MCHC 30.2 L RDW 15.4 Plt Count 144 L MPV 11.8 Immature Gran % (Auto) 1.1 H Neut % (Auto) 77.1 H Lymph % (Auto) 12.9 L [place] % (Auto) 5.6 Eos % (Auto) 2.5 Baso % (Auto) 0.8 Lymph # (Auto) 1.0 L [place] # (Auto) 0.5 Eos # (Auto) 0.2 Baso # (Auto) 0.1 Abs Immat Gran (auto) 0.09 H Absolute Neuts (auto) 6.2 Absolute Nucleated RBC 0.000 Nucleated RBC % (auto) 0.0 PT 23.5 H INR 2.0 H Sodium 143 Potassium 4.2 Chloride 109 H Carbon Dioxide 25 Anion Gap 13 BUN 15 Creatinine 1.03 Estim Creat Clear Calc 77.3 Estimated GFR 52 Fasting Glucose 117 H Calcium 8.8 D Total Bilirubin 0.5 AST 10 ALT 7 Alkaline Phosphatase 73 Total Protein 4.6 L Albumin 2.9 L Additional Comments Additional comments: ?CT/CT angio head neck IMPRESSION: 1. No evidence of acute intracranial hemorrhage or edematous territorial infarction. ? 2. Changes of left parietal craniotomy for resection of a previously demonstrated subjacent extra-axial mass (presumably an underlying meningioma). Compared to most recent available prior exam in 2018, the bulk of the mass along the left posterior vertex has been resected with adjacent encephalomalacia of the left parietal lobe. However, there appears to be increased tumor bulk filling the posterior aspect of the superior sagittal sinus on today's exam. ? 3. CTA of the head and neck without proximal occlusion or flow-limiting stenosis. ? 4. Moderate multilevel degenerative spondyloarthropathy of the cervical spine. Discharge Plan Discharge Patient Disposition: Home Health Service Discharge Diagnosis: Toxic encephalopathy possible secondary to oxycodone. Referrals: [facility] [Other] - 1 Week Rico Rodriguez MD [Primary Care Provider] - 06/16/22 2:00 pm (new patient appointment scheduled. call office if it needs to be rescheduled ) Discharge Medications: New trazodone 50 mg Tablet 50 mg PO BEDTIME Qty: 14 0RF risperidone 0.25 mg Tablet 0.25 mg PO BID Qty: 28 0RF warfarin [Jantoven] 1 mg Tablet 1.5 mg PO DAILY@1800 Qty: 45 0RF Continued B12 tablet 1,000 mg PO DAILY Klor-Con M10 tablet 1 tab PO DAILY Trelegy Ellipta 100 mcg inhalation DAILY citalopram tablet 40 mg PO DAILY levothyroxine tablet 50 mcg PO DAILY pantoprazole tablet 40 mg PO DAILY rosuvastatin tablet 10 mg PO DAILY torsemide tablet 20 mg PO DAILY Discontinued oxycodone 5 mg tablet 5 mg PO Q6H PRN (Reason: pain) Qty: 8 0RF Label Comments: Pt states she has not taken this medication since Monday due to onset of hallucinations Rx Instructions: Partial Fill upon patient request. warfarin tablet 3 mg PO DAILY Label Comments: 3 mg Mon, Mon, Mon, Sat. 6 mgSun, , Th Discharge Orders: Discharge Order (Routine); Ordered 06/15/22 Ordered By: Abdoulaye Rogers Diet: Advance to usual diet Activity on Discharge: As tolerated Stand Alone Forms: Patient Portal Discharge page Other Ambulatory Orders: Prothrombin Time INR (Routine) Timeframe: 2 Days Facility: [facility] - Location: Laboratory Ordered By: Abdoulaye Rogers Care Plan Goals: Toxic encephalopathy possible secondary to oxycodone: Seems to be improved after stopping oxycodone as well as seen by Psychiatry-added Risperdal small dose and trazodone: Patient seems back to her baseline. Patient is to follow-up with psychiatrist outpatient for further use of aspirate all and trazodone-will give 2 week supply of [place]is[place] trazodone. Ct head findings discussed with Neurosurgery [facility]: Seems like similar to 2018-patient is to follow-up with the MRI out patiently with PCP and consider outpatient follow-up with Neurosurgery in [facility]. History of DVT: INR was supratherapeutic, warfarin dose adjusted to 1.5 mg daily, monitor INR and out patiently and further management as per PCP. Health Concerns: A patient well new new symptoms including change in mental status or any new neurological symptoms please go to nearest emergency room for further evaluation. Plan of Treatment: Avoid oxycodone, steroids and meds that can cause similar symptoms as above. follow inr as above. Follow-up with PCP-with the MRI out patiently and consider outpatient follow-up with Neurosurgery in [facility]. The follow for outpatient psych for further use of antipsychotics as above. Assessment: As above. Patient Instructions: Olanzapine (By mouth)
--- NOTE | 2022-06-15 12:46 | P.F2F_ITS ---
Service Date Service Date: 06/15/22 Encounter Date of encounter: 06/15/22 Reasons for Services Signs and symptoms assessed: Toxic encephalopathy, supratherapeutic INR Reason for long term: medication management, medication treatment and teach disease management Reason for physical therapy: home safety and mobility, therapeutic exercises, restore joint function, gait/transfer training, assess need for DME, ADL training, energy conservation and other MD Overseeing Care: Rico Rodriguez Homebound: Leaving the home is medically contraindicated at this time without the asist of a device and/or another person due th the listed conditions above and below. Reason homebound: weakness related to hospital stay Homebound supporting statement: Patient is generalized weak and multiple comorbidities, need help to go to appointments as well as lab draws. Certification: Based on the above findings, I certify that this patient is confined to the home and needs intermittent long term care, physical therapy and/or speech therapy, or continues to need occupational therapy. The patient is under my care, and I have initiated the establishment of the plan of care. The patient will be followed by a physician who will periodically review the plan of care.
--- NOTE | 2022-06-15 16:25 | PC.NURSE ---
pt BIG SANDY, A&O following commands. Able to ambulated w/ standby assist w/ walker. Pt to be discharged this evening to home with daughter. Daughter contacted by MD and this RN. All belongings with patient. Iv and tele removed. discharge paperwork was reviewed with patient and pt's daughter. safety and fall precautions in place. call canales within reach
[2022-06-15 19:42] LABS: Lyme IgG CSF Immunoblot NO BANDS DETECTED; Lyme IgM CSF Immunoblot NO BANDS DETECTED
== END 2022-06-15 17:17 | disposition home health service (06) | DRG 92 ==
LOC: HO.ED 23:33 → HO.EDOVER 06-09 00:06 → HO.IMC 06-09 20:17
PROVIDERS: Hospitalist; Internal Medicine; Physician Assistant; Admitting Provider Hospitalist; Emergency Provider Emergency Medicine Emergency Medical Services; PCP Family Medicine; Visit Provider Internal Medicine
DX: G92.8 Other toxic encephalopathy (principal); F05 Delirium due to known physiological condition; E03.9 Hypothyroidism, unspecified; R79.1 Abnormal coagulation profile; E78.5 Hyperlipidemia, unspecified; E11.9 Type 2 diabetes mellitus without complications; T40.2X5A Adverse effect of other opioids, initial encounter; K21.9 Gastro-esophageal reflux disease without esophagitis; F32.A Depression, unspecified; Z20.822 Contact with and (suspected) exposure to COVID-19; Z86.718 Personal history of other venous thrombosis and embolism; Z91.041 Radiographic dye allergy status; Z88.5 Allergy status to narcotic agent; Z79.01 Long term (current) use of anticoagulants; Z79.890 Hormone replacement therapy; Z79.899 Other long term (current) drug therapy
CPT/HCPCS: 36415; 70450; 70496; 70498; 71045; 80048; 80053; 80307; 81001; 82077; 82140; 82945; 82947; 83605; 83735; 83880; 84484; 85025; 85379; 85610; 86617; 87015; 87040; 87070; 87205; 87483; 87635; 89051; 93005; 96374; 96375; 97162; 99285; J0133; J0696; J1200; J2250; J2405; J2930; J3370; Q9967

== ENCOUNTER 2022-06-17 07:19 | Outpatient (REF) | payer MEDICARE, SELFPAY ==
[2022-06-17 11:12] LABS: MANUAL DIFF FLAG NO
[2022-06-17 11:15] LABS: Basophils Absolute Auto 0.1 X10*3/uL (0.0-0.2); Basophils Percent Auto 0.6 % (0-2); Eosinophils Absolute Auto 0.2 X10*3/uL (0.0-0.4); Eosinophils Percent Auto 2.3 % (0-4); Hematocrit 40.5 % (37.0-47.0); Hemoglobin 12.3 g/dl (12.0-16.0); Imm Gran Abs Auto 0.12 X10*3/uL (0.00-0.03); Imm Gran Pct Auto 1.2 % (0.0-0.4); Lymphocytes Absolute Auto 0.9 X10*3/uL (1.2-4.9); Lymphocytes Percent Auto 8.7 % (20-40); Mean Corpuscular HGB Conc 30.4 g/dl (31.0-35.0); Mean Platelet Volume 12.9 fL (9.4-12.3); Monocytes Absolute Auto 0.5 X10*3/uL (0.1-1.2); Monocytes Percent Auto 5.2 % (2-11); Platelet Count 176 X10*3/uL (160-400); Red Cell Distribution Width 15.6 % (11.0-16.0); White Blood Count 9.7 X10*3/uL (4.8-10.8)
[2022-06-17 11:27] LABS: Appearance Urine Clear; Color Urine Yellow; Glucose Urine UA Negative (Negative); Leukocyte Esterase Urine Trace (Negative); Nitrite Urine Negative (Negative); PH 5.5 (5.0-9.0); Specific Gravity - Urine 1.015 (1.005-1.025); UMIC TRIGGER UA YES; Urine Blood Negative (Negative); Urine Ketones Negative (Negative); Urine Protein Negative (Neg-Trace)
[2022-06-17 11:28] LABS: Alanine Aminotransferase 6 U/L (0-31); Albumin Level 3.4 g/dL (3.5-5.0); Alkaline Phosphatase 88 U/L (39-117); Anion Gap 17 (12-20); Aspartate Amino Transferase 10 U/L (5-31); Bilirubin Total 0.8 mg/dL (0.0-1.0); Blood Urea Nitrogen 22 mg/dL (9-16); Calcium 9.1 mg/dL (8.4-10.2); Carbon Dioxide 22 mmol/L (22-29); Chloride 106 mmol/L (96-108); Cholesterol 150 mg/dL; Estimated Glomerular Filt Rate 42; Glucose Fasting 113 mg/dL (60-99); HDL Cholesterol 37 mg/dL; LDL Cholesterol Calculated 86 mg/dl; Potassium 4.2 mmol/L (3.3-5.1); Sodium 141 mmol/L (135-145); Total Protein 5.2 g/dL (6.5-8.0); Triglycerides 137 mg/dL
[2022-06-17 11:36] LABS: Bacteria Urine None Seen (None Seen); Hyaline Casts Urine 0-2 /LPF (0-2); WBC Urine 0-5 /HPF (0-5)
[2022-06-17 11:49] LABS: Free T4 (Free Thyroxine) 1.17 ng/dL (0.71-1.85); Thyroid Stimulating Hormone 3.48 uIU/mL (0.32-4.0)
[2022-06-17 11:50] LABS: TSH reflex Free T4 3.47 uIU/mL (0.32-4.0)
[2022-06-17 12:12] LABS: Creatinine Urine 107.49 mg/dL; Microalbum/Creatinine Ratio Ur 6.5 ug/mg cr
[2022-06-19 04:17] LABS: Triiodothyronine T3 Total 80 ng/dL (76-181)
== END 2022-06-17 07:20 | disposition home or self-care (01) ==
LOC: HO.WFDLDS 07:19
PROVIDERS: Visit Provider Family Medicine
DX: Z00.00 Encounter for general adult medical examination without abnormal findings (principal); E03.9 Hypothyroidism, unspecified; I10 Essential (primary) hypertension
CPT/HCPCS: 36415; 80053; 80061; 81001; 82043; 84439; 84443; 84480; 85025

== ENCOUNTER → 2022-07-06 14:55 | Outpatient (BNVA) | payer MEDICARE, SELFPAY | PROVIDERS: PCP Family Medicine; Visit Provider Internal Medicine | DX: G47.33 Obstructive sleep apnea (adult) (pediatric) (principal); J44.9 Chronic obstructive pulmonary disease, unspecified; R06.02 Shortness of breath; E66.01 Morbid (severe) obesity due to excess calories; R60.0 Localized edema; G93.40 Encephalopathy, unspecified; J98.4 Other disorders of lung; Z86.018 Personal history of other benign neoplasm; Z99.89 Dependence on other enabling machines and devices; Z68.43 Body mass index [BMI] 50.0-59.9, adult | CPT/HCPCS: 99202 ==

== ENCOUNTER 2022-07-08 07:06 | Outpatient (REF) | payer MEDICARE, SELFPAY ==
[2022-07-08 12:12] LABS: INTERNATIONAL NORM RATIO 1.1 (0.9-1.1); Prothrombin Time 13.1 SEC (10.0-13.1)
== END 2022-07-08 07:07 | disposition home or self-care (01) ==
LOC: HO.WFDLDS 07:06
PROVIDERS: Visit Provider Family Medicine
DX: I82.409 Acute embolism and thrombosis of unspecified deep veins of unspecified lower extremity (principal); Z79.01 Long term (current) use of anticoagulants
CPT/HCPCS: 36415; 85610

== ENCOUNTER 2022-07-11 07:09 | Outpatient (REF) | payer MEDICARE, SELFPAY ==
[2022-07-11 11:40] LABS: INTERNATIONAL NORM RATIO 1.4 (0.9-1.1); Prothrombin Time 15.7 SEC (10.0-13.1)
== END 2022-07-11 07:10 | disposition home or self-care (01) ==
LOC: HO.WFDLDS 07:09
PROVIDERS: Visit Provider Family Medicine
DX: I82.409 Acute embolism and thrombosis of unspecified deep veins of unspecified lower extremity (principal); Z79.01 Long term (current) use of anticoagulants
CPT/HCPCS: 36415; 85610

== ENCOUNTER 2022-07-13 12:59 | Outpatient (REF) | payer MEDICARE, SELFPAY | END 2022-07-13 13:00 | disposition home or self-care (01) | LOC: HO.LAB 12:59 | PROVIDERS: PCP Family Medicine; Visit Provider Family Medicine | DX: I82.409 Acute embolism and thrombosis of unspecified deep veins of unspecified lower extremity (principal); Z86.711 Personal history of pulmonary embolism; Z51.81 Encounter for therapeutic drug level monitoring; Z79.01 Long term (current) use of anticoagulants | CPT/HCPCS: 85610; 99202 ==

== ENCOUNTER → 2022-07-15 15:56 | Outpatient (BNVA) | payer MEDICARE, SELFPAY | PROVIDERS: PCP Family Medicine; Visit Provider Internal Medicine | DX: I82.409 Acute embolism and thrombosis of unspecified deep veins of unspecified lower extremity (principal); Z86.711 Personal history of pulmonary embolism; Z79.01 Long term (current) use of anticoagulants; Z51.81 Encounter for therapeutic drug level monitoring | CPT/HCPCS: 85610; 99211 ==

== ENCOUNTER → 2022-07-19 15:47 | Outpatient (BNVA) | payer MEDICARE, SELFPAY | PROVIDERS: PCP Family Medicine; Visit Provider Internal Medicine | DX: I82.409 Acute embolism and thrombosis of unspecified deep veins of unspecified lower extremity (principal); Z86.711 Personal history of pulmonary embolism; Z79.01 Long term (current) use of anticoagulants; Z51.81 Encounter for therapeutic drug level monitoring | CPT/HCPCS: 85610; 99211 ==

== ENCOUNTER → 2022-07-25 15:17 | Outpatient (BNVA) | payer MEDICARE, SELFPAY | PROVIDERS: PCP Family Medicine; Visit Provider Internal Medicine | DX: I82.409 Acute embolism and thrombosis of unspecified deep veins of unspecified lower extremity (principal); Z86.711 Personal history of pulmonary embolism; Z79.01 Long term (current) use of anticoagulants; Z51.81 Encounter for therapeutic drug level monitoring | CPT/HCPCS: 99211 ==

== ENCOUNTER 2022-08-05 14:34 | Outpatient (REF) | payer MEDICARE, SELFPAY ==
[2022-08-05 14:50] LABS: Appearance Urine Clear; Color Urine Yellow; Glucose Urine UA Negative (Negative); Leukocyte Esterase Urine Negative (Negative); Nitrite Urine Negative (Negative); PH 5.5 (5.0-9.0); UMIC TRIGGER UA YES; Urine Blood Small (1+) (Negative); Urine Ketones Negative (Negative); Urine Protein Negative (Neg-Trace)
[2022-08-05 14:57] LABS: Bacteria Urine None Seen (None Seen); RBC Urine 0-2 /HPF (0-2); Squamous Epithelial Cell Urine 0-2 /HPF (0-2); WBC Urine 0-5 /HPF (0-5)
== END 2022-08-05 14:35 | disposition home or self-care (01) ==
LOC: HO.LNP 14:34
PROVIDERS: Visit Provider Family Medicine
DX: I82.409 Acute embolism and thrombosis of unspecified deep veins of unspecified lower extremity (principal); Z86.711 Personal history of pulmonary embolism; Z51.81 Encounter for therapeutic drug level monitoring; Z79.01 Long term (current) use of anticoagulants; R35.89 Other polyuria; R30.9 Painful micturition, unspecified
CPT/HCPCS: 81001; 87086; G0248

== ENCOUNTER 2022-08-09 10:20 | Outpatient (REF) | payer MEDICARE, SELFPAY ==
--- NOTE | 2022-08-11 08:02 | MHC.AU.ANO ---
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 Megan's daughter is accompanying her today and reports Megan has tried many hearing aids in the past with the most recent obtained when living in [place]. The aids are unmarked so the sprinkler inspector is not known and cannot be programmed at this office. The aids were check. The left aid is not working and the right aid is very weak and not effective for Megan's hearing loss. Megan has a history of brain surgery performed in [place] in February 2022 to remove a menigioma. There is also a question of Dementia and her new local doctor has scheduled an MRI. It is reported she saw an [employer] Roll Cutter prior to her brain surgery. Does patient feel they have a hearing loss?: Yes If Yes, Which Ear?: Both Ears Has hearing been tested previously?: Yes Previous Hearing Test Results: Results are not available Hearing Handicap Inventory: HHIE SCORE: 40 Based on HHIE score, patient has: Severe perceived hearing handicap Ear History: Ear Infections in Childhood: Both Ears History of Ear Wax Buildup: Both Ears Bothersome Tinnitus/Ringing/Noises in Ears: Both Ears Ear used on the phone: Left Ear History of occupational noise exposure?: No History: No Medical History: Medical History: Dizziness or Unsteadiness, Head Injury, Heart Problems, Measles,Thyroid Disease Medication List: Trazadone, Torsemide, Warfarin, Klor-Con, Rosuvastatin, Citalopram, Resperidone, Levothyroxine. Pantoprazole, Lifenacin, Trelegy Ellipta, Vitamin B Otoscopy: Right Ear: Completely occluding cerumen removed prior to today's test Left Ear: Mostly occluding cerumen partially removed prior to today's test Tympanometry: Tympanometry performed due to: To assess integrity of the middle ear system Right Ear: Normal Middle Ear System (Type A) Left Ear: Normal Middle Ear System (Type A) Otoacoustic Emissions: Did Not Test Hearing Evaluation: Transducer(s) Used: Insert Earphones Bone Conduction Method: Conventional Audiometry Stimuli Used: Pure Tones Right Ear: Description of Hearing: Moderately-severe to severe sensorineural hearing loss with 0% speech discrimination ability at 85 dB HL and 10% at 80 dB HL. Megan's most comfortable listening levels is 85 dB HL, but then the quality of sound was more distorted Left Ear: Description of Hearing: Moderate to severe sensorineural hearing loss with 36% at 85 dB HL and 40% at 90 dB HL with the most comfortable listening level being 85 dB HL. Binaural speech discrimination at 85 dB HL is 50% suggesting there is no binaural interference caused by the poorer right ear. Interpretation of Results: This moderate to severe bilateral sensorineural hearing loss with poor asymmetric speech understanding is causing significant communication difficulties for Megan. We discussed how use of appropriate hearing aids for her loss will greatly help her sound awareness; however, speech clarity will not likely improve due to the very poor speech discrimination. Recommendations: - Trial with amplification is recommended. - Megan is in the process of applying for [employer]. I advised to make sure it is a plan which covers hearing aids. Her daughter is advised to call the office when Megan is officially on [facility] and a Hearing Aid Evaluation appointment will be scheduled to obtain new hearing aids. - One year audiologic re-evaluation. Will send a reminder card. Diagnosis: Primary Diagnosis: H90.3 Bilateral Sensorineural Hearing Loss Secondary Diagnosis: Impacted Cerumen, bilateral Services Performed: Comprehensive Audiological Evaluation (CPT 98454) Tympanometry (CPT 59602) Signature: Provider: Michael Lin, [facility]
== END 2022-08-09 10:21 | disposition home or self-care (01) ==
LOC: HO.SH 10:20
PROVIDERS: Visit Provider Family Medicine
DX: Z01.118 Encounter for examination of ears and hearing with other abnormal findings (principal); H90.3 Sensorineural hearing loss, bilateral
CPT/HCPCS: 92557; 92567

== ENCOUNTER 2022-08-09 12:00 | Outpatient (REF) | payer SELFPAY ==
--- NOTE | 2022-08-11 07:38 | MHC.AU.CER ---
Cerumen Removal- Binaural Date of Visit: 08/09/22 General Scrap Worker Used: Not Applicable Medical Conditions: Dizziness/Vertigo Medications: Blood Thinners Procedure: Right Ear: Prior to Removal: Complete Occlusion Outcome of Procedure: Cerumen was easily removed Cerumen softening drops used. Most cerumen was removed. Tympanic membrane is now visible. Left Ear: Prior to Removal: Significant Cerumen Present Outcome of Procedure: Cerumen softening drops used. Most cerumen was removed. Tympanic membrane is now visible. Irritation/Redness Recommendations: Use of cerumen drops, such as EarWaxMD at least once a month Diagnosis Code(s): Primary Diagnosis: H61.23 Impacted Cerumen, Bilateral Secondary Diagnosis: H90.3 Bilateral Sensorineural Hearing Loss Signature: Provider: Michael Lin, [facility]
== END 2022-08-09 12:01 | disposition home or self-care (01) ==
LOC: HO.HAP 12:00
PROVIDERS: Visit Provider Family Medicine
DX: Z46.1 Encounter for fitting and adjustment of hearing aid (principal); H90.3 Sensorineural hearing loss, bilateral; H61.23 Impacted cerumen, bilateral
CPT/HCPCS: 92700

== ENCOUNTER → 2022-08-10 10:26 | Outpatient (BNVA) | payer SELFPAY | PROVIDERS: PCP Family Medicine; Visit Provider Physician Assistant | DX: K57.30 Diverticulosis of large intestine without perforation or abscess without bleeding (principal); E66.01 Morbid (severe) obesity due to excess calories; Z68.43 Body mass index [BMI] 50.0-59.9, adult; Z86.010 Personal history of colon polyps; Z79.01 Long term (current) use of anticoagulants | CPT/HCPCS: 99202; 99212 ==

== ENCOUNTER 2022-08-12 14:43 | Outpatient (REF) | payer SELFPAY ==
--- NOTE | ~2022-08-12 | MM_ITS ---
EXAMINATION: MM SCREENING DIGITAL BREAST TOMOSYNTHESIS, BILATERAL CLINICAL INFORMATION: Screening. Asymptomatic. The lifetime risk of breast cancer based on the Tyrer-Cuzick Model is 3.0%. COMPARISON: Mammography: None TECHNIQUE: Digital breast tomosynthesis is performed in both the craniocaudal and mediolateral oblique views along with computer-aided detection (CAD). Synthesized 2D images are generated from the tomosynthesis. FINDINGS: The breasts are heterogeneously dense, which may obscure small masses (ACR BI-RADS breast composition Category c). There is multiplicity and bilaterality of calcifications with no 1 suspicious grouping being identified. Within the central inferior aspect of the left breast, there is a region of asymmetric density for which spot compression views and possible ultrasound is recommended. About the medial aspect of the left breast approximately 9 cm from nipple, there is a circumscribed density measuring approximately 10 x 6 mm in size with question of calcification. I do not definitely see a correlate on the mediolateral oblique image. Spot compression view and possible ultrasound of this region is recommended. MM/MM tomosynthesis screening BI IMPRESSION: Left breast findings for which further workup is recommended as described. ASSESSMENT: BI-RADS 0: Incomplete - Need Additional Imaging Evaluation RECOMMENDATION: 1. Additional views of the left breast. 2. Targeted ultrasound if warranted after review of the additional views. 3. Radiology department staff will contact the patient for additional imaging. This patient's information was entered into a reminder system with a target due date for their next mammogram.
--- NOTE | ~2022-08-12 | MM_ITS ---
EXAMINATION: BONE DENSITOMETRY CLINICAL INDICATION: Osteoporosis. COMPARISON: None (current study represents initial baseline exam). TECHNIQUE: Using a [employer] DXA System (software version: 13.1) manufactured by [employer], dual-energy x-ray absorptiometry was performed of the lumbar spine and left hip. The images are of good technical quality. Summary results are attached. FINDINGS: AP SPINE L1-L4: BMD 1.435 g/cm2, Z-score 2.7, T-score 2.1, normal. LEFT FEMUR, NECK: BMD 0.873 g/cm2, Z-score 0.0, T-score -1.2, osteopenia. LEFT FEMUR, TOTAL: BMD 0.868 g/cm2, Z-score -0.2, T-score -1.1, osteopenia. IDENTIFIED RISK FACTORS: Menopause, dementia, renal. HISTORY OF FRACTURE: None listed. MEDICATIONS: Vitamin D. MM/XR DEXA axial skeleton IMPRESSION: 1. DIAGNOSIS: Osteopenia based on the lowest T-score value of -1.2 in the femoral neck applying World Health Organization criteria. 2. 10-YEAR FRACTURE RISK PREDICTION, FRAX: Major osteoporotic fracture (clinical spine, forearm, hip or shoulder) 7.8%. Hip fracture 1.1%. 3. Treatment Recommendations: NOF guidelines recommend consideration for treatment in postmenopausal women and men age 50 and older presenting with the following: -A hip or vertebral (clinical or morphometric) fracture. -T-score less than or equal to -2.5 at the femoral neck or spine after appropriate evaluation to exclude secondary causes. -Low bone mass at the hip or spine and a 10-year fracture probability by FRAX of greater than or equal to 3% for hip fracture or greater than or equal to 20% for major osteoporotic fracture based on the [place] adapted WHO algorithm. 4. Other Recommendations: All treatment decisions require clinical judgment and consideration of individual patient factors, including patient preferences, comorbidities, previous drug use, risk factors not captured in the FRAX model (e.g. frailty, falls, vitamin D deficiency, increased bone turnover, interval significant decline in bone density) and possible under or overestimation of fracture risk by FRAX. Additional medical evaluation for secondary cause of low bone mineral density may be appropriate. FUTURE SCAN RECOMMENDATION: People with diagnosed cases of osteoporosis or at high risk for fracture should have regular bone mineral density tests. For patients eligible for Medicare, routine testing is allowed once every 2 years. The testing frequency can be increased to one year for patients who have rapidly progressing disease, those who are receiving or discontinuing medical therapy to restore bone mass, or have additional risk factors.
== END 2022-08-12 14:44 | disposition home or self-care (01) ==
LOC: HO.MAMMO 14:43
PROVIDERS: PCP Family Medicine; Visit Provider Family Medicine
DX: Z12.31 Encounter for screening mammogram for malignant neoplasm of breast (principal); Z13.820 Encounter for screening for osteoporosis; Z78.0 Asymptomatic menopausal state
CPT/HCPCS: 77063; 77067; 77080

== ENCOUNTER → 2022-08-22 15:10 | Outpatient (BNVA) | payer SELFPAY | PROVIDERS: PCP Family Medicine; Visit Provider Internal Medicine | DX: I82.409 Acute embolism and thrombosis of unspecified deep veins of unspecified lower extremity (principal); Z86.711 Personal history of pulmonary embolism; Z51.81 Encounter for therapeutic drug level monitoring; Z79.01 Long term (current) use of anticoagulants | CPT/HCPCS: 85610; 99211 ==

== ENCOUNTER → 2022-09-01 14:26 | Outpatient (BNVA) | payer SELFPAY | PROVIDERS: PCP Family Medicine; Visit Provider Internal Medicine | DX: I82.409 Acute embolism and thrombosis of unspecified deep veins of unspecified lower extremity (principal); Z86.711 Personal history of pulmonary embolism; Z79.01 Long term (current) use of anticoagulants; Z51.81 Encounter for therapeutic drug level monitoring | CPT/HCPCS: 85610; 99211 ==

== ENCOUNTER → 2022-09-08 15:42 | Outpatient (BNVA) | payer SELFPAY | PROVIDERS: PCP Family Medicine; Visit Provider Internal Medicine | DX: I82.409 Acute embolism and thrombosis of unspecified deep veins of unspecified lower extremity (principal); Z86.711 Personal history of pulmonary embolism; Z79.01 Long term (current) use of anticoagulants; Z51.81 Encounter for therapeutic drug level monitoring | CPT/HCPCS: 85610; 99211 ==

== ENCOUNTER → 2022-09-20 14:32 | Outpatient (BNVA) | payer MEDICARE, SELFPAY | PROVIDERS: PCP Family Medicine; Visit Provider Surgery Vascular Surgery | DX: I82.409 Acute embolism and thrombosis of unspecified deep veins of unspecified lower extremity (principal); Z86.711 Personal history of pulmonary embolism; Z79.01 Long term (current) use of anticoagulants; Z51.81 Encounter for therapeutic drug level monitoring | CPT/HCPCS: 85610; 99202; 99211 ==

== ENCOUNTER → 2022-09-29 15:53 | Outpatient (BNVA) | payer MEDICARE, SELFPAY | PROVIDERS: PCP Family Medicine; Visit Provider Internal Medicine | DX: I82.409 Acute embolism and thrombosis of unspecified deep veins of unspecified lower extremity (principal); Z86.711 Personal history of pulmonary embolism; Z79.01 Long term (current) use of anticoagulants; Z51.81 Encounter for therapeutic drug level monitoring | CPT/HCPCS: 85610; 99211 ==

== ENCOUNTER 2022-10-12 13:46 | Outpatient (REF) | payer MEDICARE, SELFPAY ==
[2022-10-12 14:45] LABS: Appearance Urine Clear; Color Urine Yellow; Glucose Urine UA Negative (Negative); Leukocyte Esterase Urine Negative (Negative); Nitrite Urine Negative (Negative); PH 6.5 (5.0-9.0); Urine Blood Negative (Negative); Urine Ketones Negative (Negative); Urine Protein Negative (Neg-Trace)
[2022-10-12 14:50] LABS: Bacteria Urine None Seen (None Seen); RBC Urine 0-2 /HPF (0-2); WBC Urine 0-5 /HPF (0-5)
[2022-10-12 14:56] LABS: Anion Gap 18 (12-20); Blood Urea Nitrogen 29 mg/dL (9-16); Calcium 9.4 mg/dL (8.4-10.2); Carbon Dioxide 29 mmol/L (22-29); Chloride 99 mmol/L (96-108); Estimated Glomerular Filt Rate 35; Potassium 3.9 mmol/L (3.3-5.1); Sodium 142 mmol/L (135-145)
[2022-10-12 15:27] LABS: Creatinine Urine 61.28 mg/dL; Microalbum/Creatinine Ratio Ur 9.7 ug/mg cr; Total Protein Urine Random < 7 mg/dL (<12)
== END 2022-10-12 13:47 | disposition home or self-care (01) ==
LOC: HO.LAB 13:46
PROVIDERS: PCP Family Medicine; Visit Provider Internal Medicine Nephrology
DX: N18.31 Chronic kidney disease, stage 3a (principal); R73.03 Prediabetes; I82.409 Acute embolism and thrombosis of unspecified deep veins of unspecified lower extremity; Z86.711 Personal history of pulmonary embolism; Z51.81 Encounter for therapeutic drug level monitoring; Z79.01 Long term (current) use of anticoagulants
CPT/HCPCS: 36415; 80051; 81001; 82043; 82310; 82565; 84156; 84520; 85610; 99211

== ENCOUNTER → 2022-11-11 14:38 | Outpatient (BNVA) | payer MEDICARE, SELFPAY | PROVIDERS: PCP Family Medicine; Visit Provider Internal Medicine | DX: I26.99 Other pulmonary embolism without acute cor pulmonale (principal); Z51.81 Encounter for therapeutic drug level monitoring; Z79.01 Long term (current) use of anticoagulants | CPT/HCPCS: 85610; 99211 ==